=== PATIENT | male | born 1950 | race Caucasian/White ===

== ENCOUNTER 2022-06-04 07:37 | Emergency (ER) | payer MEDICARE, SELFPAY ==
--- NOTE | ~2022-06-04 | CT_ITS ---
EXAMINATION: CT abdomen pelvis wo con DATE: 06/04/2022 08:22 INDICATION: Right flank pain. TECHNIQUE: Computed tomography (CT) of the abdomen and pelvis was performed without intravenous contr ast. Automated exposure control and iterative reconstruction technique were employed. The dose-length product was 1691.04 mGy-cm. COMPARISON: None. FINDINGS: The visualized portions of lung bases demonstrate mild atelectasis. No pleural effusion. Th e heart size is normal. No pericardial effusion. There is diffuse hepatic steatosis. There are gallst ones in the gallbladder, which is distended. The spleen, pancreas, and adrenal glands are normal. The re are stones in the kidneys measuring up to 13 mm on the right. The prostate is mildly enlarged. The re are no dilated loops of bowel. The appendix is normal. There is a small sliding hiatal hernia. The re are no pathologically enlarged lymph nodes. There is no free intraperitoneal fluid. There is a lef t inguinal hernia containing fat. There is moderate lumbar spondylosis. IMPRESSION: 1. Gallstones. Gallbladder distention may be secondary to fasting or acute cholecystitis. Correlate w ith physical exam. 2. Bilateral nonobstructing kidney stones. 3. Small sliding hiatal hernia. 4. Left inguinal hernia containing fat. Reviewed, dictated and finalized at location A. T INTERPRETER IMPRESSION: 1. Gallstones. Gallbladder distention may be secondary to fasting or acute chol ecystitis. Correlate with physical exam. 2. Bilateral nonobstructing kidney stones. 3. Small sliding hiatal hernia. 4. Left inguinal hernia containing fat.
[2022-06-04 07:41] VITALS: PULSE 82; RESP 19; TEMP 36.3; O2SAT 96
[2022-06-04 08:01] VITALS: BP 143/94; O2SAT 96
--- NOTE | 2022-06-04 08:07 | ED.GENADULT ---
HPI - General Adult General Chief complaint: Back Pain/Injury Stated complaint: RIGHT flank pain Time Seen by Provider: 06/04/22 07:42 History of Present Illness HPI narrative: Patient is a 72-year-old male who presents ER with right-sided abdominal pain. Mid abdomen radiating into the month. Comes in waves. Worse with laying down flat. Associate with urinary frequency and urgency. No dysuria. No fevers or chills or sweats. Has history of kidney stones. This found no alleviating factors. No diarrhea/nausea/vomiting. No injury to the back. No back pain Related Data Allergies Allergy/AdvReac Type Severity Reaction Status Date / Time aspirin Allergy Numbness Verified 06/04/22 07:43 Review of Systems Constitutional: Constitutional: Denies chills, Denies fatigue and Denies fever(s) Cardiovascular: Cardiovascular: Denies chest pain, Denies rapid heart rate and Denies radiating jaw, neck or arm pain Respiratory: Respiratory: Denies cough and Denies dyspnea Gastrointestinal: Gastrointestinal: Reports abdominal pain, Denies diarrhea, Denies nausea and Denies vomiting Genitourinary: Genitourinary: Denies hematuria, Denies dysuria, Reports urinary frequency and Reports urinary incontinence (Able to sense but urinates before making it to the toilet.) Musculoskeletal: Musculoskeletal: Denies back pain Neurologic: Denies focal weakness and Denies numbness PMFSH Past Medical History Medical History (Updated 06/04/22 @ 10:33 by Lukas Crespo MD) Gout Kidney stones Surgical History Surgical History (Updated 06/04/22 @ 08:09 by Lukas Crespo MD) H/O right knee surgery Exam Narrative: GENERAL: Well-appearing, morbidly obese, and in no acute distress. HEAD: Normocephalic, atraumatic. CHEST: Clear to auscultation. No respiratory distress. HEART: Regular rate and rhythm. Normal peripheral pulses. ABDOMEN: Soft, nontender, nondistended. Back: No reproducible midline or paraspinal tenderness to the T/L-spine. EXTREMITIES: Normal range of motion. No edema. SKIN: Warm, dry, no rash. NEURO: Alert and oriented x3. PSYCH: Normal mood and affect. Course Vital Signs Vital signs: Vital Signs Temperature 97.3 F L 06/04/22 07:41 Pulse Rate 82 06/04/22 07:41 Respiratory Rate 19 06/04/22 07:41 Pulse Oximetry 96 06/04/22 07:41 Oxygen Delivery Room Air 06/04/22 07:41 Temperature 97.3 F L 06/04/22 07:41 Pulse Rate 82 06/04/22 07:41 Respiratory Rate 19 06/04/22 07:41 Pulse Oximetry 96 06/04/22 07:41 Oxygen Delivery Room Air 06/04/22 07:41 Medical Decision Making Vital Signs Vital Signs: Vital Signs Temperature 97.3 F L 06/04/22 07:41 Pulse Rate 82 06/04/22 07:41 Respiratory Rate 19 06/04/22 07:41 Pulse Oximetry 96 06/04/22 07:41 Oxygen Delivery Room Air 06/04/22 07:41 Temperature 97.3 F L 06/04/22 07:41 Pulse Rate 82 06/04/22 07:41 Respiratory Rate 19 06/04/22 07:41 Pulse Oximetry 96 06/04/22 07:41 Oxygen Delivery Room Air 06/04/22 07:41 Lab Data 06/04/22 09:00 06/04/22 09:00 Labs: Lab Results 06/04/22 06/04/22 06/04/22 Range/Units 09:00 09:00 09:35 WBC 7.8 (4.5-10.0) K/mm3 RBC 4.23 L (4.6-6.20) M/mm3 Hgb 12.8 L (14.0-18.0) g/dL Hct 39.5 L (42.0-52.0) % MCV 93.4 (80-100) fl MCH 30.3 (26-34) pg MCHC 32.4 (32-36) g/dl RDW 13.2 (11.5-14.5) % Plt Count 273 (150-375) k/mm3 MPV 9.2 (7.4-10.4) fl Immature Gran % (Auto) 0.3 (0-0.5) % Neut % (Auto) 66.8 (45.5-73.1) % Lymph % (Auto) 21.7 (18.3-44.2) % [place] % (Auto) 8.6 H (2.6-8.5) % Eos % (Auto) 2.1 (0-4.4) % Baso % (Auto) 0.5 (0.2-1.2) % Lymph # (Auto) 1.69 (0.9-3.2) K/mm3 [place] # (Auto) 0.7 H (0.1-0.6) K/mm3 Eos # (Auto) 0.2 (0-0.3) K/mm3 Baso # (Auto) 0.0 (0.0-0.1) K/mm3 Abs Immat Gran (auto) 0.02 (0.00-0.031) K/mm3 Absolute Neuts (auto)
[2022-06-04 09:07] LABS: Basophils Percent Auto 0.5 % (0.2-1.2); Eosinophils Absolute Auto 0.2 K/mm3 (0-0.3); Eosinophils Percent Auto 2.1 % (0-4.4); Hematocrit 39.5 % (42.0-52.0); Hemoglobin 12.8 g/dL (14.0-18.0); Immature Granulocyte Absolute 0.02 K/mm3 (0.00-0.031); Immature Granulocyte Percent A 0.3 % (0-0.5); Lymphocytes Absolute Auto 1.69 K/mm3 (0.9-3.2); Lymphocytes Percent Auto 21.7 % (18.3-44.2); Mean Corpuscular HGB Conc 32.4 g/dl (32-36); Mean Corpuscular Hemoglobin 30.3 pg (26-34); Mean Corpuscular Volume 93.4 fl (80-100); Mean Platelet Volume 9.2 fl (7.4-10.4); Monocytes Absolute Auto 0.7 K/mm3 (0.1-0.6); Monocytes Percent Auto 8.6 % (2.6-8.5); Neutrophils Absolute Auto 5.2 K/mm3 (1.3-6.7); Neutrophils Percent Auto 66.8 % (45.5-73.1); Platelet Count Result 273 k/mm3 (150-375); Red Blood Count 4.23 M/mm3 (4.6-6.20); Red Cell Distribution Width 13.2 % (11.5-14.5); White Blood Count 7.8 K/mm3 (4.5-10.0)
[2022-06-04] MEDS: MORPHINE SULFATE (*CRX) 4 MG/ML INJ IV PUSH (09:09)
[2022-06-04 09:20] LABS: Alanine Aminotransferase 18 U/L (6-50); Albumin Level 4.1 g/dL (3.5-5.1); Alkaline Phosphatase 90 U/L (38-126); Anion Gap 7 mmol/L (8-16); Aspartate Amino Transferase 21 U/L (17-59); Bilirubin,Total 0.9 mg/dL (0.2-1.3); Blood Urea Nitrogen 20 mg/dL (9-20); Calcium 9.2 mg/dL (8.4-10.2); Carbon Dioxide 26 mmol/L (22-30); Chloride 108 mmol/L (98-107); Estimated CRCL calculation 95 ml/min; Estimated Glomerular Filt Rate > 60; Glucose 130 mg/dL (65-110); Lipase 41 U/L (23-300); Sodium 141 mmol/L (137-145)
[2022-06-04 09:30] VITALS: O2SAT 97
[2022-06-04 09:42] LABS: Appearance Urine Clear (Clear); Bilirubin Urine Negative (Negative); Blood Urine Trace-intact (Negative); Color Urine Yellow (Yellow); Glucose Urine UA Negative (Negative); Ketones Urine Negative (Negative); Leukocyte Esterase Ur Trace LEU/UL (Negative); Nitrate Urine Negative (Negative); Protein Urine 1+ mg/dL (Negative)
[2022-06-04 09:49] LABS: Bacteria Urine Trace /hpf; Mucus Urine Rare /lpf; Squamous Epithelial Cell Urine Occasional /hpf (Few)
[2022-06-04 09:52] LABS: Add Urine Microscopic? YES
== END 2022-06-04 10:50 | disposition home or self-care (01) ==
PROVIDERS: Emergency Provider Emergency Medicine
DX: K80.20 Calculus of gallbladder without cholecystitis without obstruction (principal); Z87.442 Personal history of urinary calculi
CPT/HCPCS: 36415; 74176; 80053; 81001; 83690; 85025; 96374; 99284; J2270

== ENCOUNTER 2022-06-19 09:45 | Outpatient (CLI) | payer MEDICARE, SELFPAY ==
[2022-06-19 10:39] LABS: Hematocrit 39.8 % (42.0-52.0); Mean Corpuscular HGB Conc 32.7 g/dl (32-36); Mean Corpuscular Volume 91.7 fl (80-100); Mean Platelet Volume 9.4 fl (7.4-10.4); Platelet Count Result 285 k/mm3 (150-375); Red Blood Count 4.34 M/mm3 (4.6-6.20); Red Cell Distribution Width 13.1 % (11.5-14.5)
[2022-06-19 10:51] LABS: Alanine Aminotransferase 18 U/L (6-50); Albumin Level 4.2 g/dL (3.5-5.1); Alkaline Phosphatase 94 U/L (38-126); Anion Gap 6 mmol/L (8-16); Aspartate Amino Transferase 19 U/L (17-59); Bilirubin,Total 0.8 mg/dL (0.2-1.3); Blood Urea Nitrogen 23 mg/dL (9-20); Calcium 9.4 mg/dL (8.4-10.2); Carbon Dioxide 28 mmol/L (22-30); Chloride 110 mmol/L (98-107); Cholesterol 224 mg/dL (0-200); Estimated Glomerular Filt Rate 60; Glucose 124 mg/dL (65-110); HDL Direct 40 mg/dL; Potassium 4.2 mmol/L (3.4-5.0); Sodium 144 mmol/L (137-145); Triglycerides 90 mg/dL (<150); Uric Acid 6.5 mg/dL (3.5-8.5)
[2022-06-19 11:03] LABS: LDL Cholesterol Direct 134 mg/dL
[2022-06-19 11:15] LABS: Hemoglobin A1C 6.6 % (<5.7)
[2022-06-19 11:22] LABS: Prostate Specific Antigen 1.6 ng/mL (< OR = 4.0)
== END 2022-06-19 09:46 | disposition home or self-care (01) ==
PROVIDERS: PCP Internal Medicine; Visit Provider Internal Medicine
DX: R73.9 Hyperglycemia, unspecified (principal); E66.01 Morbid (severe) obesity due to excess calories; I10 Essential (primary) hypertension; N40.0 Benign prostatic hyperplasia without lower urinary tract symptoms; M10.9 Gout, unspecified; Z12.5 Encounter for screening for malignant neoplasm of prostate
CPT/HCPCS: 36415; 80053; 80061; 83036; 84153; 84443; 84550; 85027; G0103

== ENCOUNTER 2022-11-28 15:19 | Emergency (ER) | payer MEDICARE, SELFPAY ==
[2022-11-28 15:49] VITALS: BP 170/97; PULSE 80; RESP 20; TEMP 36.4; O2SAT 98
--- NOTE | 2022-11-28 16:02 | ED.BACK ---
HPI - Back Pain/Injury General Chief Complaint: Back Pain/Injury Stated Complaint: sent by PCP for tailbone xrays Time Seen by Provider: 11/28/22 16:03 Source: patient Mode of arrival: ambulatory Limitations: no limitations History of Present Illness HPI Narrative: Edwin is a 72-year-old male patient presenting to the clinic today with complaints of tailbone pain x1 day. He reports he was sitting on a stool yesterday and irritated his tailbone. He denies falling or any injury. Denies any wounds or drainage coming from the tailbone area. Related Data Home Medications Medication Instructions Recorded Confirmed apixaban 5 mg tablet 5 mg PO BID 04/26/22 11/28/22 colchicine (gout) 0.6 mg capsule 0.6 mg PO DAILY 04/26/22 11/28/22 Allergies Allergy/AdvReac Type Severity Reaction Status Date / Time aspirin Allergy Other Verified 11/28/22 14:48 Review of Systems Review of Systems: Pertinent positives per HPI. Patient denies any fever, chills, rash, headache, visual changes, dizziness, cough, runny nose, sore throat, shortness of breath, chest pain, palpitations, nausea, vomiting, diarrhea, constipation, abdominal pain, or any urinary issues. [facility] Past Medical History Medical History Diabetes Erectile dysfunction Gout Gout HTN (hypertension) Kidney stones Kidney stones Morbid obesity JESSICA (obstructive sleep apnea) Surgical History Surgical History H/O knee surgery H/O right knee surgery Family History Family History Father Cancer Lung cancer Mother Hypertension Alzheimer's dementia Sibling Diabetes mellitus Hypertension Daughter Breast cancer Hypertension Social History Social History Smoking status: Never smoker Second hand tobacco smoke exposure: No Alcohol intake: never Substance use: never Lack of Transportation: No Lack of Food: Never True Current Housing: I Have Housing Concerned About Future Housing: No Difficulty Paying Gas/Electric Bills: No Difficulty Paying for Meds: No Currently Unemployed: YES Education: Associate Degree Difficulty w/ Childcare or Family Care: No Comments At the time of my signature, I reviewed and agree with the nursing past medical, surgical, social, and family history. There is no relevant family history pertinent to the patient complaint. Exam Narrative: General: Well-developed, morbidly obese, in no apparent distress Head: Normocephalic, atraumatic. Cardio: Regular rate and rhythm, s1 and s2 normal, no murmur appreciated. Resp: Clear to auscultation bilaterally, no rhonchi, rales, wheezing or rubs. Musculoskeletal: No deformity, no redness, swelling, or bruising noted,tender to palpation over the coccyx, grossly normal range of motion, muscle strength strong and equal, peripheral pulse strong, no edema, no cyanosis, normal gait and station Course Course Emergency Course: Portions of this record may have been created with voice recognition software. Vital Signs Vital signs: Vital Signs Temperature 36.4 C 11/28/22 15:49 Pulse Rate 80 11/28/22 15:49 Respiratory Rate 20 11/28/22 15:49 Blood Pressure 170/97 H 11/28/22 15:49 Pulse Oximetry 98 11/28/22 15:49 Oxygen Delivery Room Air 11/28/22 15:49 Temperature 36.4 C 11/28/22 15:49 Pulse Rate 80 11/28/22 15:49 Respiratory Rate 20 11/28/22 15:49 Blood Pressure 170/97 H 11/28/22 15:49 Pulse Oximetry 98 11/28/22 15:49 Oxygen Delivery Room Air 11/28/22 15:49 Vital signs reviewed MDM - Back Pain/Injury MDM Narrative Medical decision making narrative: At the time of visit patient is sitting In the exam room on the chair. He is reporting pain to his coccyx area. There is
== END 2022-11-28 16:54 | disposition home or self-care (01) ==
PROVIDERS: Emergency Provider Nurse Practitioner Family; PCP Family Medicine
DX: M53.3 Sacrococcygeal disorders, not elsewhere classified (principal); E11.9 Type 2 diabetes mellitus without complications; I10 Essential (primary) hypertension; G47.33 Obstructive sleep apnea (adult) (pediatric); M10.9 Gout, unspecified; E66.01 Morbid (severe) obesity due to excess calories; Z68.43 Body mass index [BMI] 50.0-59.9, adult; Z87.442 Personal history of urinary calculi; Z79.85 Long-term (current) use of injectable non-insulin antidiabetic drugs; Z79.01 Long term (current) use of anticoagulants
CPT/HCPCS: 99283

== ENCOUNTER 2023-01-25 11:25 | Outpatient (CLI) | payer MEDICARE, SELFPAY ==
[2023-01-25 12:06] LABS: Basophils Percent Auto 0.4 % (0.2-1.2); Eosinophils Absolute Auto 0.2 K/mm3 (0-0.3); Eosinophils Percent Auto 3.1 % (0-4.4); Hematocrit 41.3 % (42.0-52.0); Hemoglobin 13.2 g/dL (14.0-18.0); Immature Granulocyte Absolute 0.01 K/mm3 (0.00-0.031); Immature Granulocyte Percent A 0.1 % (0-0.5); Lymphocytes Absolute Auto 2.61 K/mm3 (0.9-3.2); Lymphocytes Percent Auto 39.1 % (18.3-44.2); Mean Corpuscular Hemoglobin 29.9 pg (26-34); Mean Corpuscular Volume 93.4 fl (80-100); Mean Platelet Volume 9.7 fl (7.4-10.4); Monocytes Absolute Auto 0.6 K/mm3 (0.1-0.6); Monocytes Percent Auto 9.1 % (2.6-8.5); Neutrophils Absolute Auto 3.2 K/mm3 (1.3-6.7); Neutrophils Percent Auto 48.2 % (45.5-73.1); Platelet Count Result 235 k/mm3 (150-375); Red Blood Count 4.42 M/mm3 (4.6-6.20); Red Cell Distribution Width 13.7 % (11.5-14.5); White Blood Count 6.7 K/mm3 (4.5-10.0)
[2023-01-25 12:12] LABS: Hemoglobin A1C 5.7 % (<5.7)
[2023-01-25 12:17] LABS: Alanine Aminotransferase 18 U/L (6-50); Albumin Level 4.5 g/dL (3.5-5.1); Alkaline Phosphatase 82 U/L (38-126); Anion Gap 7 mmol/L (8-16); Aspartate Amino Transferase 24 U/L (17-59); Blood Urea Nitrogen 21 mg/dL (9-20); Calcium 9.6 mg/dL (8.4-10.2); Carbon Dioxide 26 mmol/L (22-30); Chloride 109 mmol/L (98-107); Cholesterol 147 mg/dL (0-200); Estimated Glomerular Filt Rate 54; Glucose 105 mg/dL (65-110); HDL Direct 42 mg/dL; Potassium 3.8 mmol/L (3.4-5.0); Sodium 142 mmol/L (137-145); Triglycerides 86 mg/dL (<150); Uric Acid 8.1 mg/dL (3.5-8.5)
[2023-01-25 12:29] LABS: LDL Cholesterol Direct 78 mg/dL
[2023-01-25 12:31] LABS: MALB Creatinine Ratio 30.9 mg/g (0-30); Microalbumin Urine Random 62.8 mg/L (0-16.7)
== END 2023-01-25 11:26 | disposition home or self-care (01) ==
PROVIDERS: PCP Family Medicine; Visit Provider Nurse Practitioner Family
DX: M10.9 Gout, unspecified (principal); E11.69 Type 2 diabetes mellitus with other specified complication; E66.9 Obesity, unspecified; E78.5 Hyperlipidemia, unspecified; I10 Essential (primary) hypertension; D64.9 Anemia, unspecified
CPT/HCPCS: 36415; 80053; 80061; 82043; 83036; 84550; 85025

== ENCOUNTER 2023-04-20 09:31 | Emergency (ER) | payer MEDICARE, SELFPAY ==
--- NOTE | ~2023-04-20 | CT_ITS ---
EXAMINATION: CT abdomen pelvis wo con DATE: 04/20/2023 11:12 INDICATION: Right flank pain TECHNIQUE: Computed tomography (CT) of the abdomen and pelvis was performed without intravenous contr ast. Automated exposure control and iterative reconstruction technique were employed. The dose-length product was 1611.21 mGy-cm. COMPARISON: None FINDINGS: Unchanged 3 mm groundglass nodule at the posterolateral right lower lobe. Mild bibasilar dependent at electasis. Heart size is normal. No pericardial or pleural effusion. Aortic valve calcification. Smal l sliding-type hiatal hernia. Again seen is a dependent calcified gallstone in the otherwise normal-a ppearing gallbladder with no evident wall thickening or pericholecystic comparison to suggest acute c holecystitis. Liver, spleen, pancreas and bilateral adrenal glands are normal. 1.3 cm nonobstructing stone at the lower pole of the right kidney and 4 mm nonobstructing stone at a lower pole calyx of th e left kidney. No ureteral stones or hydronephrosis. Bladder is normal. Small fat-containing left ing uinal hernia. Bowels including the appendix are normal. Small fat-containing umbilical hernia. No tae e intraperitoneal gas or fluid. No pathologically enlarged abdominal or pelvic lymphadenopathy. Mild to moderate thoracolumbar spondylosis with bridging osteophytes at multiple levels consistent with di ffuse idiopathic skeletal hyperostosis (DISH). There is also multilevel moderate to severe facet oste oarthritis throughout the lumbar and lower thoracic spine. Moderate bilateral hip osteoarthritis. IMPRESSION: 1. Cholelithiasis. 2. Bilateral nonobstructing nephrolithiasis. 3. Small sliding-type hiatal hernia. 4. Small fat-containing umbilical and left inguinal hernias. Reviewed, dictated and finalized at location A. 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
[2023-04-20 09:38] VITALS: BP 141/68; PULSE 78; RESP 18; TEMP 36.4; O2SAT 99
[2023-04-20 11:09] LABS: Basophils Absolute Auto 0.1 K/mm3 (0.0-0.1); Basophils Percent Auto 0.8 % (0.2-1.2); Eosinophils Absolute Auto 0.2 K/mm3 (0-0.3); Eosinophils Percent Auto 2.6 % (0-4.4); Hemoglobin 13.2 g/dL (14.0-18.0); Immature Granulocyte Absolute 0.02 K/mm3 (0.00-0.031); Immature Granulocyte Percent A 0.3 % (0-0.5); Lymphocytes Absolute Auto 2.05 K/mm3 (0.9-3.2); Lymphocytes Percent Auto 33.6 % (18.3-44.2); Mean Corpuscular HGB Conc 31.4 g/dl (32-36); Mean Corpuscular Volume 95.5 fl (80-100); Monocytes Absolute Auto 0.5 K/mm3 (0.1-0.6); Monocytes Percent Auto 8.5 % (2.6-8.5); Neutrophils Absolute Auto 3.3 K/mm3 (1.3-6.7); Neutrophils Percent Auto 54.2 % (45.5-73.1); Platelet Count Result 231 k/mm3 (150-375); Red Cell Distribution Width 13.5 % (11.5-14.5); White Blood Count 6.1 K/mm3 (4.5-10.0)
--- NOTE | 2023-04-20 11:17 | ED.GENADULT ---
HPI - General Adult General Chief complaint: Urogenital-Male Stated complaint: Pain right side and back Time Seen by Provider: 04/20/23 10:57 Source: patient Mode of arrival: ambulatory Limitations: no limitations History of Present Illness HPI narrative: This is a 73-year-old male who presents to the ED with chief complaint of right flank pain x2 days and worse today. Reports it has been intermittent in nature until today becoming more constant and more severe. Reports he has history of kidney stones and this feels similar. Denies radiation of pain. Denies fevers, chills, nausea, vomiting, urinary symptoms, troubles with bowel movements. Denies any injuries or pain in the lower back. Related Data Home Medications Medication Instructions Recorded Confirmed apixaban 5 mg tablet 5 mg PO BID 04/26/22 01/25/23 Allergies Allergy/AdvReac Type Severity Reaction Status Date / Time aspirin Allergy Other Verified 01/25/23 09:36 Review of Systems Review of Systems: All systems as dictated in [facility] Past Medical History Medical History Diabetes Erectile dysfunction Gout Gout HTN (hypertension) Kidney stones Kidney stones Morbid obesity JESSICA (obstructive sleep apnea) Surgical History Surgical History H/O knee surgery H/O right knee surgery Family History Family History Father Cancer Lung cancer Mother Hypertension Alzheimer's dementia Sibling Diabetes mellitus Hypertension Daughter Breast cancer Hypertension Social History Social History Smoking status: Never smoker Second hand tobacco smoke exposure: No Alcohol intake: never Substance use: never Lack of Transportation: No Lack of Food: Never True Current Housing: I Have Housing Concerned About Future Housing: No Difficulty Paying Gas/Electric Bills: No Difficulty Paying for Meds: No Currently Unemployed: YES Education: Associate Degree Difficulty w/ Childcare or Family Care: No Exam Narrative: GENERAL: Well-appearing, well-nourished, and in no acute distress. HEAD: Normocephalic, atraumatic. EYES: PERRLA and EOMI. ENT: Nares clear, no rhinorrhea or epistaxis. Mucous membranes moist. Oropharynx without tonsillar hypertrophy exudate or other lesions. NECK: Supple. No adenopathy or masses. CHEST: No respiratory distress. Clear to auscultation. No wheezes rales or rhonchi HEART: Regular rate and rhythm. No murmur heard. Normal peripheral pulses. ABDOMEN: obese abdomen. Mild right flank tenderness. Negative left flank tenderness. Soft, otherwise nontender, nondistended, normal active bowel sounds. MSK: Normal range of motion. No edema. SKIN: Warm, dry, no rash. NEURO: Alert and oriented x3. No focal deficits. PSYCH: Normal mood and affect. Course Vital Signs Vital signs: Vital Signs Temperature 97.6 F 04/20/23 09:38 Pulse Rate 78 04/20/23 09:38 Respiratory Rate 18 04/20/23 09:38 Blood Pressure 141/68 H 04/20/23 09:38 Pulse Oximetry 99 04/20/23 09:38 Oxygen Delivery Room Air 04/20/23 09:38 Temperature 97.6 F 04/20/23 09:38 Pulse Rate 70 04/20/23 13:14 Respiratory Rate 18 04/20/23 13:14 Blood Pressure 140/65 04/20/23 13:14 Pulse Oximetry 100 04/20/23 13:14 Oxygen Delivery Room Air 04/20/23 09:38 Medical Decision Making MDM Narrative Medical decision making narrative: This is a 73-year-old male who presents to the ED with chief complaint of right lower back and right flank pain for the past several days. Vitals are normal. Afebrile. Exam does reveal right flank tenderness. lab work is largely unrevealing. No leukocytosis. Very slightly elevated BUN at 22. Urinalysis does show evidence of possible
[2023-04-20 11:22] LABS: Alanine Aminotransferase 16 U/L (6-50); Albumin Level 4.1 g/dL (3.5-5.1); Alkaline Phosphatase 85 U/L (38-126); Anion Gap 7 mmol/L (8-16); Aspartate Amino Transferase 25 U/L (17-59); Blood Urea Nitrogen 22 mg/dL (9-20); Calcium 9.6 mg/dL (8.4-10.2); Carbon Dioxide 28 mmol/L (22-30); Chloride 111 mmol/L (98-107); Estimated CRCL calculation 89 ml/min; Estimated Glomerular Filt Rate > 60; Glucose 90 mg/dL (65-110); Potassium 4.1 mmol/L (3.4-5.0); Sodium 146 mmol/L (137-145)
[2023-04-20 12:13] LABS: Appearance Urine Clear (Clear); Bacteria Urine None Seen /hpf; Bilirubin Urine Negative (Negative); Blood Urine Negative (Negative); Color Urine Yellow (Yellow); Glucose Urine UA Negative (Negative); Ketones Urine Negative (Negative); Leukocyte Esterase Ur Trace LEU/UL (Negative); Nitrate Urine Negative (Negative); Non Pathogenic Casts 0-2; Protein Urine Negative (Negative); RBC Urine 0-2 /hpf (0-2); Specific Grav Ur 1.019 (1.001-1.035); Squamous Epithelial Cell Urine None seen /hpf (Few)
[2023-04-20 12:20] LABS: Add Urine Microscopic? YES
[2023-04-20] MEDS: ONDANSETRON INJ 4 MG/2 ML VIAL IV PUSH (12:49)
[2023-04-20] MEDS: MORPHINE SULFATE (*CRX) 4 MG/ML INJ IV PUSH (12:49)
[2023-04-20 13:14] VITALS: BP 140/65; PULSE 70; RESP 18; O2SAT 100
== END 2023-04-20 15:24 | disposition home or self-care (01) ==
PROVIDERS: Emergency Provider Physician Assistant; PCP Nurse Practitioner Family
DX: N39.0 Urinary tract infection, site not specified (principal); I10 Essential (primary) hypertension; E11.9 Type 2 diabetes mellitus without complications; E66.01 Morbid (severe) obesity due to excess calories; Z68.43 Body mass index [BMI] 50.0-59.9, adult; G47.33 Obstructive sleep apnea (adult) (pediatric); M10.9 Gout, unspecified; Z87.442 Personal history of urinary calculi; Z79.85 Long-term (current) use of injectable non-insulin antidiabetic drugs; K44.9 Diaphragmatic hernia without obstruction or gangrene; N20.0 Calculus of kidney; K80.20 Calculus of gallbladder without cholecystitis without obstruction; K42.9 Umbilical hernia without obstruction or gangrene; K40.90 Unilateral inguinal hernia, without obstruction or gangrene, not specified as recurrent
CPT/HCPCS: 36415; 74176; 80053; 81001; 85025; 87086; 87088; 96374; 96375; 99284; 99285; J2270; J2405

== ENCOUNTER 2023-10-07 06:54 | Emergency (ER) | payer MEDICARE, SELFPAY ==
--- NOTE | ~2023-10-07 | XR_ITS ---
EXAMINATION: XR lumbar spine 2-3V DATE: 10/07/2023 08:10 INDICATION: Low back pain. Sciatica. TECHNIQUE: 3 views of lumbar spine on 4 radiographs were obtained. COMPARISON: CT abdomen and pelvis 04/20/2023 FINDINGS: There is 5 degrees levocurvature of lumbar spine. Vertebral body heights are normal. Interv ertebral disc heights are normal. There are endplate osteophytes at most levels. There is multilevel severe facet joint osteoarthritis. There is a gallstone in the gallbladder. There is a 3 mm stone in left kidney. IMPRESSION: 1. Mild lumbar spondylosis. Reviewed, dictated and finalized at location E. IMPRESSION: 1. Mild lumbar spondylosis.
[2023-10-07] MEDS: ACETAMINOPHEN 325 MG TABLET 650 MG PO (07:47)
[2023-10-07] MEDS: CYCLOBENZAPRINE HCL 10 MG TABLET PO (07:47)
--- NOTE | 2023-10-07 08:05 | ED.EXTPRO ---
HPI - Extremity Problem General Chief complaint: Extremity Problem,Nontraumatic Stated complaint: R leg pain Time Seen by Provider: 10/07/23 06:57 History of Present Illness HPI Narrative: Patient is a 73-year-old male who presents ER with right-sided back and leg pain. Began yesterday morning. No known injury. No numbness or tingling to legs or groin. Worse with physical movement. No improvement with Tylenol. Patient is on Eliquis and is unable to take any anti-inflammatory medication due to previous GI bleed. He also has an aspirin allergy. No fevers or chills or sweats. Related Data Home Medications Medication Instructions Recorded Confirmed apixaban 5 mg tablet 5 mg PO BID 04/26/22 01/25/23 Allergies Allergy/AdvReac Type Severity Reaction Status Date / Time aspirin Allergy Other Verified 10/07/23 08:51 Review of Systems Constitutional: Constitutional: Reports no additional constitutional complaints Genitourinary: Genitourinary: Reports no additional male genitourinary complaints Musculoskeletal: Musculoskeletal: Reports back pain, Denies arthralgias, Denies joint swelling and Denies muscle cramps Neurologic: Reports system reviewed and no additional complaints, except as documented PMFSH Past Medical History Medical History Diabetes Erectile dysfunction Gout Gout HTN (hypertension) Kidney stones Kidney stones Morbid obesity JESSICA (obstructive sleep apnea) Surgical History Surgical History H/O knee surgery H/O right knee surgery Family History Family History Father Cancer Lung cancer Mother Hypertension Alzheimer's dementia Sibling Diabetes mellitus Hypertension Daughter Breast cancer Hypertension Social History Social History Smoking status: Never smoker Second hand tobacco smoke exposure: No Alcohol intake: never Substance use: never Lack of Transportation: No Lack of Food: Never True Current Housing: I Have Housing Concerned About Future Housing: No Difficulty Paying Gas/Electric Bills: No Difficulty Paying for Meds: No Currently Unemployed: YES Education: Associate Degree Difficulty w/ Childcare or Family Care: No Exam Narrative: GENERAL: Well-appearing, Morbidly obese, and in no acute distress. HEAD: Normocephalic, atraumatic. ENT: Mucous membranes moist. BACK: No midline tenderness of t/l-spine. Mild right SI tenderness. EXTREMITIES: Normal range of motion. No edema. SKIN: Warm, dry, no rash. NEURO: Alert and oriented x3. PSYCH: Normal mood and affect. Course Course Emergency Course: Patient feeling improved with Tylenol and cyclobenzaprine. Informed of imaging results. Discharge home with supportive care. Recommend follow-up with PCP. May need a steroid injection at a later time. Vital Signs Vital signs: Vital Signs Temperature 97.9 F 10/07/23 08:28 Pulse Rate 60 10/07/23 08:28 Respiratory Rate 20 10/07/23 08:28 Blood Pressure 133/106 H 10/07/23 08:28 Pulse Oximetry 96 10/07/23 08:28 Oxygen Delivery Room Air 10/07/23 08:28 Temperature 97.9 F 10/07/23 08:28 Pulse Rate 60 10/07/23 08:28 Respiratory Rate 20 10/07/23 08:28 Blood Pressure 133/106 H 10/07/23 08:28 Pulse Oximetry 96 10/07/23 08:28 Oxygen Delivery Room Air 10/07/23 08:28 MDM - Extremity (Nontraumatic) Imaging Data Radiologist's impression: ITS Impressions Lumbar Spine X-Ray 10/07/23 08:12 IMPRESSION: 1. Mild lumbar spondylosis. Discharge Plan Discharge Clinical Impression: Sciatica Patient Disposition: Home, Self-Care Condition: Stable Instructions: Sciatica (ED) Additional Instructions: Please return to the emergency department if you de
[2023-10-07 08:28] VITALS: BP 133/106; PULSE 60; RESP 20; TEMP 36.6; O2SAT 96
== END 2023-10-07 09:18 | disposition home or self-care (01) ==
PROVIDERS: Emergency Provider Emergency Medicine
DX: M54.41 Lumbago with sciatica, right side (principal); E11.9 Type 2 diabetes mellitus without complications; I10 Essential (primary) hypertension; G47.33 Obstructive sleep apnea (adult) (pediatric); E66.01 Morbid (severe) obesity due to excess calories; Z68.43 Body mass index [BMI] 50.0-59.9, adult; M10.9 Gout, unspecified; Z87.442 Personal history of urinary calculi; M47.816 Spondylosis without myelopathy or radiculopathy, lumbar region; Z79.01 Long term (current) use of anticoagulants; Z79.899 Other long term (current) drug therapy; Z79.85 Long-term (current) use of injectable non-insulin antidiabetic drugs
CPT/HCPCS: 72100; 99283; A9270

== ENCOUNTER 2024-05-19 05:36 | Emergency (ER) | payer MEDICARE, SELFPAY ==
[2024-05-19 05:37] VITALS: BP 186/92; PULSE 93; RESP 18; TEMP 36.6; O2SAT 97
--- OUTSIDE RECORDS SUMMARY | 2024-05-19 05:38 | XMS_ITS | Encounter Summary ---
Author Name [facility] [place] [facility] [place] [facility] [place] Address [address] [place] [address] Care Team Providers Care Physician/Allergy/Immunology Name Role Phone MARIA DEL ROSARIO ESTES Primary Care Provider Unavailab le Insurance Providers: All historical and current Section Date Range: From patient's date of to the date document was created. This section includes the names of all active insurance providers for the patient. Insurance Provider Type of Coverage Plan Name Start of Policy Coverage End of Policy Coverage Group Number Member ID Insurance Provider's Telephone Number Policy Carrasquillo's Name Patient's Relationship to Policy Carrasquillo AETNA [facility] (WNR) MEDICARE ADVANTAGE [facility] (WN) Apr 02, 2019 [id number] [phone] RODNEY MIXEdwar PATIENT MEDICARE (WNR) MEDICARE (M) PART A Feb 01, 2016 PART A [id number] [phone] MARIA DEL ROSARIORODNEY JOSEEdwar PATIENT MEDICARE (WNR) MEDICARE (M) PART B Feb 01, 2016 PART B [id number] MARIA DEL ROSARIORODNEY JOSEEdwar PATIENT MEDICARE (WNR) MEDICARE (M) PART B Feb 01, 2016 PART B [id number] [phone] MARIA DEL ROSARIORODNEY JOSEEdwar PATIENT MEDICARE (WNR) MEDICARE (M) PART A Feb 01, 2016 PART A [id number] MARIA DEL ROSARIORODNEY JOSEEdwar PATIENT [facility] (WNR) MEDICARE ADVANTAGE [facility](W NR) Jan 01, 2024 [id number] MARIA DEL ROSARIORODNEY JOSEEdwar PATIENT Selected Encounter This section includes the information on record at [place] for the Encounter. Date/Time Encounter Type Encounter Description Reason Provider Source Nov 08, 2023 02:26 PM Outpatient Encounter ADMIN PAT ACTIVTIES (MASNONCT) MARIA DEL ROSARIO ESTES Giulia Encounter Template Text not used by [place] Plan of Treatment: Future Appointments (+ 6 months) and Future Tests (+/- 45 days) The Plan of Treatment section includes future care activities for the patient from all [place] treatmentfacilities. This section includes future appointments and future orders which are active, pending or scheduled. Future Appointments This section includes appointments that were scheduled to occur 6 months from the date of the Encounter, up to a maximum of 20 appointments. The data comes from all [place] treatment facilities. Appointment Date/Time Appointment Type Appointme nt Facility Name Nov 16, 2023 01:00 PM AMBULATORY [facility] MED[facility] Nov 22, 2023 01:00 PM AMBULATORY - MEDICINE [facility] Nov 23, 2023 09:00 AM [facility]ORY - [facility]INE [facility] Dec 11, 2023 09:00 AM AM[facility]ULATORY - NONE [facility] Dec 24, 2023 03:00 PM [facility]ULATORY - [facility]INE [facility] Jan 07, 2024 01:30 PM AM[facility]ULATORY - SURGERY [facility] Jan 24, 2024 01:30 PM AMBULATORY - MEDICINE [facility] Feb 18, 2024 09:30 AM AM[facility]ULATORY [facility]ERY [facility] Feb 20, 2024 11:30 AM AM[facility]ULATORY - NONE [facility] Mar 06, 2024 11:00 AM AM[facility]ULATORY - NONE [facility] [place] [facility] Mar 14, 2024 11:00 AM AMBULATORY - REHAB MEDICIN [facility] Apr 03, 2024 11:30 AM AMBULATORY - [facility] Apr 05, 2024 09:35 AM [facility]ATORY - [facility]INE [facility] Apr 15, 2024 12:00 PM AMBULATORY - MEDICINE [facility] Apr 16, 2024 11:00 AM AMBULATORY - NONE [email or web address] Luciana [facility] Apr 16, 2024 01:30 PM AMBULATORY - NONE [facility] Active, Pending, and Scheduled Orders This section includes a listing of several types of active, pending, and scheduled orders, including clinic medications orders, diagnostic test orders, procedure orders and consult orders; where the start date of the order is 45 days before the date of the Encounter or 45 days after the date of theEncounter. The data comes from all [facility]. Test Date/Time Test Type Test Details Facility Name Nov 07, 2023 12:00 AM Laboratory - Chemi stry Order MICRAL/CREAT PROFILE (STL) URINE [facility] Nov 07, 2023 12:00 AM Laboratory - Chemi stry Order VITAMIN D, 25-HYDROXY GOLD/RED SST SERUM [facility] Nov 07, 2023 12:00 AM Laboratory - Chemi stry Order URINALYSIS W/ CX REFLEX (STL-PB) URINE - CLEAN CATCH [facility] Nov 07, 2023 12:00 AM Laboratory - Chemi stry Order OCCULT BLOOD FIT X1 SCREEN STOOL FECES [facility] Social History: Smoking Status (Most current) and Tobacco Use (All prior to encounter date) This section includes the most current, and the historical, smoking and tobacco- related health factors from the [place] facility where the Encounter took place. Current Smoking Status This section includes the most current smoking, or tobacco-related health factor, from the [place] facility where the Encounter took place. Date/Time Current Smoking Status Comment Facil ity Jun 06, 2022 10:00 AM VA-TOBACCO NEVER USED [facility] Tobacco Use History This section includes a history of the smoking, or tobacco-related health factors, that were collected on or before the date of the Encounter. The data comes from the [place] facility where the Encounter took place. Date/Time Smoking Status/Tobacco Use Comment F acility Mar 15, 2020 02:00 PM VA-TOBACCO FORMER USER [facility] Mar 15, 2020 02:00 PM VA-TOBACCO QUIT 15 YRS OR MORE [facility] Jan 29, 2018 10:49 AM VA-TOBACCO NEVER USED [facility] Oct 12, 2016 09:53 AM LIFETIME NON-USER OF TOBACCO [facility] August 02, 2015 10:40 AM LIFETIME NON-USER OF TOBACCO [facility] Oct 22, 2014 09:50 AM LIFETIME NON-USER OF TOBACCO [facility] Jan 08, 2009 08:24 AM QUIT TOBACCO >7 YEARS AGO [facility] Encounter Notes: All associated encounter notes This section contains the clinical notes associated to the Encounter. Date/Time Encounter Note(s) Provider Source Nov 08, 2023 02:26 PM CARE COORDINATION HOME TELEHEALTH NOTE: LOCAL TITLE: HT NOTE STANDARD TITLE: CARE COORDINATION HOME TELEHEALTH NOTE DATE OF NOTE: NOV 08, 2023@14:26 ENTRY DATE: NOV 08, 2023@14:26:28 AUTHOR: JUAN MANUEL COCHRAN EXP COSIGNER: URGENCY: STATUS: COMPLETED Home Telehealth is a specialized Case Management program which uses technology to provide education, improve self-care management, and for professional daily monitoring of symptoms and problems all from the Veterans homes. Home Telehealth Night Club Manager-reviewed: [employer] [place] identified as potential patient who may benefit from Remote Patient Monitoring(RPM)- Home Telehealth (HT) services. Patient enrolled in Remote Patient Monitoring (RMP)-Home Telehealth(HT) program. No meets criteria for enrollment in RPM-HT program? Yes Referral placed to home telehealth pending provider approval/signature /buzz/ JUAN MANUEL FERNANDEZN RN REGISTERED NURSE Signed: 11/08/2023 14:29 JUAN MANUEL COCHRAN [facility]
--- OUTSIDE RECORDS SUMMARY | 2024-05-19 05:38 | XMS_ITS | Encounter Summary ---
Author Name [facility] [place] [facility] [place] [facility] [place] Address [address] [place] [address] Care Team Providers Care Utility Hand Name Role Phone MARIA DEL ROSARIO ESTES [...] Name Patient's Relationship to Policy Carrasquillo AETNA [facility] (WNR) MEDICARE ADVANTAGE [facility] ([facility]) Apr 02, 2019 [id number] RODNEY MIXEdwar PATIENT MEDICARE (WNR) MEDICARE (M) PART A Feb 01, 2016 PART A [id number] [phone] MARIA DEL ROSARIORODNEY JOSEEdwar PATIENT MEDICARE (WNR) MEDICARE (M) PART B Feb 01, 2016 PART B [id number] MARIA DEL ROSARIORODNEY [place] PATIENT MEDICARE (WNR) MEDICARE (M) PART A Feb 01, 2016 PART A [id number] [phone] MARIA DEL ROSARIORODNEY JOSEEdwar PATIENT MEDICARE (WNR) MEDICARE (M) PART B Feb 01, 2016 PART B [id number] RODNEY MIX PATIENT [facility] MCR (WNR) MEDICARE ADVANTAGE MCR(W NR) Jan 01, 2024 [id number] RODNEY MIX PATIENT Selected Encounter This section includes the information on record at [place] for the Encounter. Date/Time Encounter Type Encounter Description Reason Pro vider Source Apr 16, 2024 11:00 AM Outpatient Encounter PRIMARY CARE/MEDICINE [facility] Encounter Template Text not used by [place] Plan of Treatment: Future Appointments (+ 6 months) and Future Tests (+/- 45 days) The Plan of Treatment section includes future care activities for the patient from all [place] treatment[place]ilities. This section includes future appointments and future orders which are active, pending or scheduled. Future Appointments This section includes appointments that were scheduled to occur 6 months from the date of the Encounter, up to a maximum of 20 appointments. The data comes from all [place] treatment facilities. Appointment Date/Time Appointment Type Appointme nt Facility Name May 23, 2024 02:30 PM AM[facility]ULATORY [facility] Jun 02, 2024 10:30 AM [facility]ORY - [facility] Jun 26, 2024 03:00 PM AMBULATORY - MEDICINE [facility] Jul 02, 2024 11:00 AM AMBULATORY - NONE [facility] Social History: Smoking Status (Most current) and Tobacco Use (All prior to encounter date) This section includes the most current, and the historical, smoking and tobacco- related health factors from the [place] facility where the Encounter took place. Current Smoking Status This section includes the most current smoking, or tobacco-related health factor, from the [place] facility where the Encounter took place. Date/Time Current Smoking Status Comment Facil ity May 10, 2023 10:30 AM [place]-TOBACCO QUIT [address] [facility] Tobacco Use History This section includes a history of the smoking, or tobacco-related health factors, that were collected on or before the date of the Encounter. The data comes from the [place] facility where the Encounter took place. Date/Time Smoking Status/Tobacco Use Comment F acility May 10, 2023 10:30 AM [place]-TOBACCO QUIT [address] [facility] Encounter Notes: All associated encounter notes This section contains the clinical notes associated to the Encounter. Date/Time Encounter Note(s) Provider Source Apr 16, 2024 03:58 PM NUTRITION ADMINIST RATIVE NOTE: LOCAL TITLE: NUTRITION ADMINISTRATIVE NOTE RUST STANDARD TITLE: NUTRITION ADMINISTRATIVE NOTE DATE OF NOTE: APR 16, 2024@15:58 ENTRY DATE: APR 16, 2024@15:58:26 AUTHOR: SANDRO MG EXP COSIGNER: URGENCY: STATUS: COMPLETED did not show for scheduled nutrition appt. No contact letter to be sent. /buzz/ SANDRO MG Clinical Dietitian Signed: 04/16/2024 15:[address] [facility]
--- OUTSIDE RECORDS SUMMARY | 2024-05-19 05:39 | XMS_ITS | Continuity of Care Document ---
Author Name [facility] Organization [facility] Care Team Providers Care Tank Insulator Rubber Name Role Phone [facility] Unavailable Unavailable Problems Combined list of problems from Department of Defense and Veterans Affairs facilities. It does not include entries that were removed or entered in error. Problem Status Onset Date Problem Type Date of Resolution Comments Source Anemia Active Condition [facility] Anticoagulant control Active Condition [facility] Benign essential hypertension Active Condition [facility] Chronic Kidney Disease Stage 3A (SCT 281825947) Active Condition [facility] Diastolic dysfunction Active Condition [facility] Eczema (SCT 29549523) Active Condition [facility] Erectile dysfunction (SNOMED CT 398237812) Active Condition [facility] Exposure to potentially hazardous substance Active Condition [facility] Folate deficiency Active Condition [facility] Foot pain Active Condition [facility] Gout Active Condition [facility] History of calculus of kidney Active Condition [facility] History of recurrent deep vein thrombosis Active Condition [facility] Hyperlipidemia Active Condition [facility] Knee pain Active Condition [facility] Morbid obesity Active Condition [facility] Numbness Active Condition [facility] Obesity Active Condition [facility] Obstructive Sleep Apnea of Adult (SCT 3504281457976) Active Condition [facility] Osteoarthritis of knee Active Condition [facility] Pyuria Active Condition [facility] Stasis dermatitis Active Condition [facility] 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 [facility] Type 2 diabetes mellitus Active Condition [facility] Vitamin D Deficiency (SCT 89238460) Active Condition [facility] Diagnosis: ICD-10-CM I10 Essential (primary) hypertension Active Diagnosis [facility] Diagnosis: ICD-10-CM E78.5 Hyperlipidemia, unspecified Active Diagnosis [facility] Diagnosis: ICD-10-CM M19.90 Unspecified osteoarthritis, unspecified site Active Diagnosis [facility] Diagnosis: ICD-10-CM R09.81 Nasal congestion Active Diagnosis [facility] Diagnosis: ICD-10-CM J20.9 Acute bronchitis, unspecified Active Diagnosis [facility] Diagnosis: ICD-10-CM H25.13 Age-related nuclear cataract, bilateral Active Diagnosis [facility] Diagnosis: ICD-10-CM M10.9 Gout, unspecified Active Diagnosis [facility] Diagnosis: ICD-10-CM E66.01 Morbid (severe) obesity due to excess calories Active Diagnosis [facility] Diagnosis: ICD-10-CM B35.1 Tinea unguium Active Diagnosis [facility] Diagnosis: ICD-10-CM E11.22 Type 2 diabetes mellitus w diabetic chronic kidney disease Active Diagnosis [facility] Diagnosis: ICD-10-CM 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 Diagnosis: ICD-10-CM Z63.6 Dependent relative needing care at home Active Diagnosis [facility] Diagnosis: ICD-10-CM M17.0 Bilateral primary osteoarthritis of knee Active Diagnosis [facility] Diagnosis: ICD-10-CM E11.9 Type 2 diabetes mellitus without complications Active Diagnosis [facility] Medications Combined list of outpatient medications from Department of Defense and Veterans Affairs facilities.Medications provided include 1) outpatient medications from the last 15 months, and 2) patient-reported medications. Medication Details Route Status Patient Instructions Prescription Expires Prescription Number Last Dispense Date Ordering Provider Order Date Order Qty Source ACETAMINOPH EN 500MG TAB TAKE ONE TABLET BY MOUTH FOUR TIMES A DAY NEEDED ORAL ACTIVE Meghan URBINA 2014 [facility] ALBUTEROL SO4 90MCG/ACTUA T (CFC-F) INHL,ORAL,8 .5GM INHALE 1 PUFF BY ORAL INHALATI ON FOUR TIMES A DAY NEEDED SHAKE WELL. RINSE MOUTHPIE CE FREQUENT LY TO PREVENT CLOGGING . RESPIR ATORY (INHAL ATION) 05/03/2024 [id number] SHANE BE D 2024 1 [facility] AMLODIPINE BESYLATE 10MG TAB TAKE ONE TABLET BY MOUTH ONCE A DAY FOR HEART/BL OOD PRESSURE ORAL ACTIVE 11/07/2024 [id number] 5 MARIA DEL ROSARIO ESTES 2023 90 [facility] AMLODIPINE BESYLATE 10MG TAB TAKE ONE TABLET BY MOUTH ONCE A DAY FOR HEART/BL OOD PRESSURE ORAL DISCONT INUED 05/09/2024 [id number] 4 MARIA DEL ROSARIO ESTES 2023 90 [facility] AMLODIPINE BESYLATE 10MG TAB TAKE ONE TABLET BY MOUTH ONCE A DAY FOR HEART/BL OOD PRESSURE ORAL DISCONT INUED 05/09/2024 [id number] 4 MARIA DEL ROSARIO ESTES 2023 90 [facility] ATORVASTATI N CA 10MG TAB TAKE ONE-HALF TABLET BY MOUTH EVERY EVENING FOR HIGH CHOLESTE ROL ORAL DISCONT INUED BY PROVIDE R 05/20/2024 [id number] 4 LONNIE CASILLAS 2023 45 [facility] ATORVASTATI N CA 20MG TAB TAKE ONE-HALF TABLET BY MOUTH EVERY EVENING ORAL ACTIVE 04/17/2025 [id number] 5 LONNIE CASILLAS 2024 45 [facility] BENZONATATE 100MG CAP TAKE ONE CAPSULE BY MOUTH THREE TIMES A DAY NEEDED FOR COUGH ORAL 05/03/2024 [id number] 5 BESHANE 2024 90 [facility] CARBOXYMETH YLCELLULOSE NA 0.5% SOLN,OPH INSTILL 1 DROP IN BOTH EYES FOUR TIMES A DAY NEEDED FOR DRY EYE(S) OPHTHA LMIC ACTIVE 02/18/2025 [id number] 4 DELVIN HENDERSON 2023 45 [facility] CHOLECALCIF MARK ANTHONY 50MCG (2,000UNIT) TAB TAKE ONE TABLET BY MOUTH ONCE A DAY FOR VITAMIN D DEFICIEN CY ORAL ACTIVE 11/07/2024 [id number] 4 MARIA DEL ROSARIO ESTES 2023 100 [facility] CHOLECALCIF MARK ANTHONY 50MCG (2,000UNIT) TAB TAKE ONE TABLET BY MOUTH ONCE A DAY FOR VITAMIN D DEFICIEN CY ORAL DISCONT INUED 09/11/2023 [id number] 4 RA ARIC PÉREZ 2022 100 [facility] COLCHICINE 0.6MG TAB TAKE ONE TABLET BY MOUTH ONCE A DAY FOR GOUT (STOP MED AND CONTACT PROVIDER AT FIRST SIGN OF NAUSEA, VOMITING OR DIARRHEA ) ORAL ACTIVE 05/08/2025 [id number] 5 CONCETTA GEE 2024 90 [facility] COLCHICINE 0.6MG TAB TAKE ONE TABLET BY MOUTH ONCE A DAY FOR GOUT (STOP MED AND CONTACT PROVIDER AT FIRST SIGN OF NAUSEA, VOMITING OR DIARRHEA ) ORAL DISCONT INUED 05/08/2024 [id number] 4 ELYSE POOLE 2023 90 [facility] DICLOFENAC NA 1% GEL,TOP APPLY 2 GM TO AFFECTED AREA(S) FOUR TIMES A DAY NEEDED FOR PAIN/INF LAMMATIO N; NOT MORE THAN 16 GRAMS DAILY TO ANY LOWER EXTREMIT Y JOINT. NOT MORE THAN 8 GRAMS DAILY TO ANY UPPER EXTREMIT Y JOINT. MAX 32GM/DAY OVER ALL JOINTS. (MEASURE DOSE WITH RULER ATTACHED INSIDE BOX) LC Pimentel DISCONT INUED 11/07/2024 [id number] 4 MARIA DEL ROSARIO ESTES 2023 200 [facility] DICLOFENAC NA 1% GEL,TOP APPLY 2 GM TO AFFECTED AREA(S) FOUR TIMES A DAY NEEDED FOR PAIN/INF LAMMATIO N; NOT MORE THAN 16 GRAMS DAILY TO ANY LOWER EXTREMIT Y JOINT. NOT MORE THAN 8 GRAMS DAILY TO ANY UPPER EXTREMIT Y JOINT. MAX 32GM/DAY OVER ALL JOINTS. (MEASURE DOSE WITH RULER ATTACHED INSIDE BOX) LC Pimentel DISCONT INUED 05/08/2024 [id number] 4 ELYSE POOLE RTHA M 2023 200 [facility] DICLOFENAC NA 1% GEL,TOP APPLY 2 GM TO AFFECTED AREA(S) FOUR TIMES A DAY FOR PAIN NO MORE THAN 16 GM/DAY TO ANY LOWER EXTREMIT Y JOINT. NO MORE THAN 8 GM/DAY TO ANY UPPER EXTREMIT Y JOINT. MAX 32GM/DAY OVER ALL JOINTS.( MEASURE DOSE WITH RULER INSIDE BOX) LC Pimentel 05/05/2024 [id number] 5 AAKASH FREITAS 2024 100 [facility] ENALAPRIL MALEATE 20MG TAB TAKE TWO TABLETS BY MOUTH ONCE A DAY FOR HEART OR TO LOWER BLOOD PRESSURE ORAL ACTIVE 11/07/2024 [id number] 4 MARIA DEL ROSARIO ESTES [address] [facility] ENALAPRIL MALEATE 20MG TAB TAKE ONE TABLET BY MOUTH ONCE A DAY FOR HEART OR TO LOWER BLOOD PRESSURE ORAL DISCONT INUED (EDIT) 05/09/2024 [id number] 4 MARIA DEL ROSARIO ESTES 2023 90 [facility] EZETIMIBE 10MG TAB TAKE ONE TABLET BY MOUTH ONCE A DAY ORAL DISCONT INUED BY PROVIDE R 11/07/2024 [id number] 4 MARIA DEL ROSARIO ESTES 2023 90 [facility] FEBUXOSTAT 80MG TAB TAKE ONE TABLET BY MOUTH ONCE A DAY FOR GOUT ORAL ACTIVE 02/07/2025 [id number] 4 VALENTIN DOBBINS 2023 90 [facility] FEBUXOSTAT 80MG TAB TAKE ONE-HALF TABLET BY MOUTH ONCE A DAY FOR GOUT ORAL 01/26/2024 [id number] 4 ELYSE POOLE 2022 45 [facility] GUAIFENESIN 400MG TAB TAKE ONE TABLET BY MOUTH EVERY 6 HOURS NEEDED FOR MUCUS THINNING TAKE WITH 8 OUNCE GLASS OF WATER. ORAL 05/03/2024 [id number] 5 SHANE BE D 2024 120 [facility] HYDROPHILIC (EQV EUCERIN) CREAM,TOP APPLY SPARINGL Y TO AFFECTED AREA(S) ONCE A DAY FOR DRY SKIN (EXTERNA L USE ONLY) TOPICA L DISCONT INUED 09/06/2023 [id number] 4 RA ARIC PÉREZ 2022 454 [facility] HYDROPHILIC (EQV EUCERIN) CREAM,TOP APPLY SPARINGL Y TO AFFECTED AREA(S) ONCE A DAY DRY SKIN (EXTERNA L USE ONLY) TOPICA L 05/10/2024 [id number] 4 MARIA DEL ROSARIO ESTES 2023 454 [facility] LIDOCAINE 5% PATCH APPLY 1 PATCH TO SKIN SITE ONCE A DAY APPLY PATCH AND PRESS FIRMLY FOR 10-15 SECONDS. KEEP ON FOR 12 HOURS THEN REMOVE PATCH FOR 12 HOURS. TRANSD ERMAL ACTIVE 11/07/2024 [id number] 4 MARIA EDL ROSARIO ESTES 2023 30 [facility] MULTIVITAMI N CAP/TAB TAKE BY MOUTH ONCE A DAY ORAL ACTIVE Meghan URBINA 2015 [facility] ROSUVASTATI N CA 20MG TAB TAKE ONE-HALF TABLET BY MOUTH EVERY EVENING FOR HIGH CHOLESTE ROL .REPOR T ANY UNEXPLAI RAMAKRISHNA MUSCLE PAIN OR WEAKNESS TO PROVIDER ORAL 09/11/2023 [id number] 4 RA ARIC PÉREZ 2022 45 [facility] TADALAFIL 20MG TAB TAKE ONE TABLET BY MOUTH EVERY WEEK NEEDED (TAKE 30 MINUTES PRIOR TO SEXUAL ACTIVITY ) - LIMIT 18 DOSES PER 90 DAYS ORAL ACTIVE 12/06/2024 [id number] 4 MARIA DEL ROSARIO ESTES 2023 18 [facility] TRIAMCINOLO NE ACETONIDE 0.1% OINT,TOP APPLY SPARINGL Y TO AFFECTED AREA(S) TWICE A DAY FOR ATOPIC DERMATIT IS (EXTERNA L USE ONLY) TOPICA L 05/10/2024 [id number] 4 MARIA DEL ROSARIO ESTES 2023 80 [facility] Allergies, Adverse Reactions, Alerts Combined list of allergies from Department of [facility] and [facility] facilities. It does not include entries that were removed or entered in error. Substance Category Reaction Severity Reaction type Status Date Reported Comments Source ALLOPURINOL Propensity to adverse reactions to drug (finding) Joint pain active 7 [facility] EZETIMIBE Propensity to adverse reactions to drug (finding) Gout MODERATE active 4 [facility] GABAPENTIN Propensity to adverse reactions to drug (finding) Sedated active 0 [facility] MERCURY,COLETTE IATED Propensity to adverse reactions to drug (finding) active 5 [facility] ROSUVASTATIN Propensity to adverse reactions to drug (finding) Gout MODERATE active 4 [facility] SILDENAFIL Propensity to adverse reactions to drug (finding) Headache active 5 [facility] Immunizations Combined list of available immunizations from the Department of [facility] and [facility] facilities. Immunization Series Date Given Administered By Site Reaction Lot Number CVX Code Drug Supervisor Wire Rope Fabrication Status Comments Source INFLUENZA, HIGH-DOSE, TRIVALENT, PF 2024 VALENTINA GARCIA RIGHT DELTO ID [id number] 135 complet ed [facility] INFLUENZA VACCINE, QUADRIVALENT, ADJUVANTED 2022 LINA APARICIO RIGHT DELTO ID [id number] 205 complet ed [facility] INFLUENZA VACCINE, QUADRIVALENT, ADJUVANTED [address] [facility] INFLUENZA, INJECTABLE, QUADRIVALENT, PRESERVATIVE FREE 2018 150 complet ed [facility] TDAP 2018 115 complet ed Right Deltoid [facility] INFLUENZA, INJECTABLE, QUADRIVALENT, PRESERVATIVE FREE 2017 150 complet ed [facility] ZOSTER RECOMBINANT 2 2017 187 complet ed [facility] ZOSTER RECOMBINANT 1 2017 187 complet ed [facility] INFLUENZA, INJECTABLE, QUADRIVALENT, PRESERVATIVE FREE 2016 150 complet ed [facility] PNEUMOCOCCAL CONJUGATE PCV 13 2016 133 [facility] PPV23 2015 [facility] complet [facility] INFLUENZA, SEASONAL, INJECTABLE, PRESERVATIVE FREE 2014 140 complet ed [facility] ZOSTER LIVE 2014 121 complet ed [facility] INFLUENZA, UNSPECIFIED FORMULATION 2013 88 complet ed [facility] TDAP 2008 115 complet ed Left DeltSSM [facility] INFLUENZA, UNSPECIFIED FORMULATION 2008 88 complet ed [facility] Results Combined list of recent chemistry, hematology and other laboratory results from Department of Defense and Veterans Affairs, ranging from 15 months to all on record, depending upon the facility. Order Name Results Value Reference Range Date Interpretation Specimen Comments Source URIC ACID URATE [MASS/VOLU ME] IN SERUM OR PLASMA 8.9 mg/dL 3.5 - 7.2 01/24 H Specimen Type: PLASMA Comment: No hemolysis noted. Ordering Provider: MERLINE ESTES Report Released Date/Time: Jan 24, 2024 02:12 PM Reporting Lab: [facility] [address] [place] [phone] Performing Lab: [facility] [address] [address] [facility] LIPID PANEL (STL) CHOLESTERO L [MASS/VOLU ME] IN SERUM OR PLASMA 207 mg/dL 0 - 200 01/24 H Specimen Type: PLASMA Comment: No hemolysis noted. Ordering Provider: MERLINE ESTES Report Released Date/Time: Jan 24, 2024 02:12 PM Reporting Lab: [address] [address] Performing Lab: [address] [phone] [facility] LIPID PANEL (STL) TRIGLYCERI DE [MASS/VOLU ME] IN SERUM OR PLASMA 80 mg/dL 0 - 150 01/24 Specimen Type: PLASMA Comment: No hemolysis noted. Ordering Provider: MERLINE ESTES Report Released Date/Time: Jan 24, 2024 02:12 PM Reporting Lab: [address] [address] Performing Lab: [address] [phone] [facility] LIPID PANEL (STL) CHOLESTERO L IN LDL [MASS/VOLU ME] IN SERUM OR PLASMA BY CALCULATIO N 150 mg/dL 01/24 Specimen Type: PLASMA Comment: No hemolysis noted. Ordering Provider: MERLINE ESTES Report Released Date/Time: Jan 24, 2024 02:12 PM Reporting Lab: [address] [address] Performing Lab: [address] [address] [facility] LIPID PANEL (STL) CHOLESTERO L IN HDL [MASS/VOLU ME] IN SERUM OR PLASMA 41 mg/dL 40 01/24 Specimen Type: PLASMA Comment: No hemolysis noted. Ordering Provider: MERLINE ESTES Report Released Date/Time: Jan 24, 2024 02:12 PM Reporting Lab: [address] [address] Performing Lab: [address] [address] [facility] VITAMIN D, 25-HYDRO XY 25-HYDROXY VITAMIN D3 [MASS/VOLU ME] IN SERUM OR PLASMA 20.9 ng/mL 30 - 96 01/24 L Specimen Type: SERUM No comment entered. Ordering Provider: MERLINE ESTES Report Released Date/Time: Jan 24, 2024 02:12 PM Reporting Lab: [address] [address] Performing Lab: [phone] [place] [address] [facility] MICRAL/C REAT PROFILE (STL) ALBUMIN [MASS/VOLU ME] IN URINE 87.3 mg/L 01/24 Specimen Type: URINE No comment entered. Ordering Provider: MERLINE ESTES Report Released Date/Time: Jan 24, 2024 02:12 PM Reporting Lab: [address] [address] Performing Lab: [address] [address] [facility] MICRAL/C REAT PROFILE (STL) ALBUMIN/CR EATININE [MASS RATIO] IN URINE 30 mg/g 0 - 29 01/24 H Specimen Type: URINE No comment entered. Ordering Provider: MERLINE ESTES Report Released Date/Time: Jan 24, 2024 02:12 PM Reporting Lab: [address] [address] Performing Lab: [address] [address] [facility] MICRAL/C REAT PROFILE (STL) CREATININE [MASS/VOLU ME] IN URINE 294.7 mg/dL 63 - 166 01/24 H Specimen Type: URINE No comment entered. Ordering Provider: MERLINE ESTES Report Released Date/Time: Jan 24, 2024 02:12 PM Reporting Lab: [address] [place] [address] Performing Lab: [facility] [address] [facility] [address] [facility] COMPREHE NSIVE METABOLI C PANEL CREATININE [MASS/VOLU ME] IN SERUM OR PLASMA 1.49 mg/dL 0.7 - 1.3 01/24 H Specimen Type: PLASMA Comment: No hemolysis noted. Ordering Provider: MERLINE ESTES Report Released Date/Time: Jan 24, 2024 02:12 PM Reporting Lab: [address] [address] Performing Lab: [address] [phone] [place] [address] [facility] COMPREHE NSIVE METABOLI C PANEL UREA NITROGEN [MASS/VOLU ME] IN SERUM OR PLASMA 22.1 mg/dL 9.0 - 25.0 01/24 Specimen Type: PLASMA Comment: No hemolysis noted. Ordering Provider: MERLINE ESTES Report Released Date/Time: Jan 24, 2024 02:12 PM Reporting Lab: [address] [address] Performing Lab: [facility] [address] [place] [phone] [facility] COMPREHE NSIVE METABOLI C PANEL GLUCOSE [MASS/VOLU ME] IN SERUM OR PLASMA 125 mg/dL 72 - 99 01/24 H Specimen Type: PLASMA Comment: No hemolysis noted. Ordering Provider: MERLINE ESTES Report Released Date/Time: Jan 24, 2024 02:12 PM Reporting Lab: [facility] [address] [place] [phone] Performing Lab: [facility] [address] [place] [phone] [facility] COMPREHE NSIVE METABOLI C PANEL SODIUM [MOLES/VOL UME] IN SERUM OR PLASMA 143 meq/L 136 - 145 01/24 Specimen Type: PLASMA Comment: No hemolysis noted. Ordering Provider: MERLINE ESTES Report Released Date/Time: Jan 24, 2024 02:12 PM Reporting Lab: [facility] [address] [facility] [address] Performing Lab: [facility] [address] [place] [phone] [facility] COMPREHE NSIVE METABOLI C PANEL POTASSIUM [MOLES/VOL UME] IN SERUM OR PLASMA 3.8 meq/L 3.5 - 5 01/24 Specimen Type: PLASMA Comment: No hemolysis noted. Ordering Provider: MERLINE ESTES Report Released Date/Time: Jan 24, 2024 02:12 PM Reporting Lab: [address] [address] Performing Lab: [address] [address] [facility] COMPREHE NSIVE METABOLI C PANEL CHLORIDE [MOLES/VOL UME] IN SERUM OR PLASMA 112 meq/L 98 - 107 01/24 H Specimen Type: PLASMA Comment: No hemolysis noted. Ordering Provider: MERLINE ESTES Report Released Date/Time: Jan 24, 2024 02:12 PM Reporting Lab: [facility] [address] [place] [phone] Performing Lab: [address] [address] [facility] COMPREHE NSIVE METABOLI C PANEL CARBON DIOXIDE, TOTAL [MOLES/VOL UME] IN SERUM OR PLASMA 22 meq/L 22 - 31 01/24 Specimen Type: PLASMA Comment: No hemolysis noted. Ordering Provider: MERLINE ESTES Report Released Date/Time: Jan 24, 2024 02:12 PM Reporting Lab: [facility] [address] [place] [phone] Performing Lab: [facility] [address] [place] [phone] [facility] COMPREHE NSIVE METABOLI C PANEL CALCIUM [MASS/VOLU ME] IN SERUM OR PLASMA 9.9 mg/dL 8.4 - 10.4 01/24 Specimen Type: PLASMA Comment: No hemolysis noted. Ordering Provider: MERLINE ESTES Report Released Date/Time: Jan 24, 2024 02:12 PM Reporting Lab: [facility] [address] [place] [phone] Performing Lab: [facility] [address] [place] [phone] [facility] COMPREHE NSIVE METABOLI C PANEL PROTEIN [MASS/VOLU ME] IN SERUM OR PLASMA 7.5 g/dL 6 - 8.6 01/24 Specimen Type: PLASMA Comment: No hemolysis noted. Ordering Provider: MERLINE ESTES Report Released Date/Time: Jan 24, 2024 02:12 PM Reporting Lab: [facility] [address] [place] [phone] Performing Lab: [address] [address] [facility] COMPREHE NSIVE METABOLI C PANEL ALBUMIN [MASS/VOLU ME] IN SERUM OR PLASMA 4.0 g/dL 3.4 - 5 01/24 Specimen Type: PLASMA Comment: No hemolysis noted. Ordering Provider: MERLINE ESTES Report Released Date/Time: Jan 24, 2024 02:12 PM Reporting Lab: [facility] [address] [place] [phone] Performing Lab: [facility] [address] [place] [phone] [facility] COMPREHE NSIVE METABOLI C PANEL BILIRUBIN. TOTAL [MASS/VOLU ME] IN SERUM OR PLASMA 0.5 mg/dL 0.2 - 1.2 01/24 Specimen Type: PLASMA Comment: No hemolysis noted. Ordering Provider: MERLINE ESTES Report Released Date/Time: Jan 24, 2024 02:12 PM Reporting Lab: [facility] [address] [place] [phone] Performing Lab: [facility] [address] [place] [phone] [facility] COMPREHE NSIVE METABOLI C PANEL ALKALINE PHOSPHATAS E [ENZYMATIC ACTIVITY/V OLUME] IN SERUM OR PLASMA 76 U/L 40 - 150 01/24 Specimen Type: PLASMA Comment: No hemolysis noted. Ordering Provider: MERLINE ESTES Report Released Date/Time: Jan 24, 2024 02:12 PM Reporting Lab: [place] [address] [place] [address] Performing Lab: [place] [address] [place] [phone] [facility] COMPREHE NSIVE METABOLI C PANEL ASPARTATE AMINOTRANS FERASE [ENZYMATIC ACTIVITY/V OLUME] IN SERUM OR PLASMA 15 U/L 5 - 34 01/24 Specimen Type: PLASMA Comment: No hemolysis noted. Ordering Provider: MERLINE ESTES Report Released Date/Time: Jan 24, 2024 02:12 PM Reporting Lab: [place] [address] Performing Lab: [place] [address] [place] [phone] [facility] COMPREHE NSIVE METABOLI C PANEL ALANINE AMINOTRANS FERASE [ENZYMATIC ACTIVITY/V OLUME] IN SERUM OR PLASMA 9 U/L 8 - 40 01/24 Specimen Type: PLASMA Comment: No hemolysis noted. Ordering Provider: MERLINE ESTES Report Released Date/Time: Jan 24, 2024 02:12 PM Reporting Lab: [place] [address] Performing Lab: [place] [phone] [facility] COMPREHE NSIVE METABOLI C PANEL GLOMERULAR FILTRATION RATE/1.73 SQ M.PREDICTE D [VOLUME RATE/AREA] IN SERUM, PLASMA OR BLOOD BY CREATININE -BASED FORMULA (CKD-EPI 2020) 49.6 60 01/24 Specimen Type: PLASMA Comment: No hemolysis noted. Ordering Provider: MERLINE ESTES Report Released Date/Time: Jan 24, 2024 02:12 PM Reporting Lab: [address] [address] Performing Lab: [facility] [address] [facility] [address] [facility] CBC LEUKOCYTES [#/VOLUME] IN BLOOD BY AUTOMATED COUNT 6.1 10*3/uL 3.6 - 11.2 01/24 Specimen Type: BLOOD No comment entered. Ordering Provider: MERLINE ESTES Report Released Date/Time: Jan 24, 2024 02:12 PM Reporting Lab: [address] [id number] Performing Lab: [address] [address] [facility] CBC ERYTHROCYT ES [#/VOLUME] IN BLOOD BY AUTOMATED COUNT 4.27 10*6/uL 4.10 - 5.70 01/24 Specimen Type: BLOOD No comment entered. Ordering Provider: MERLINE ESTES Report Released Date/Time: Jan 24, 2024 02:12 PM Reporting Lab: [address] [address] Performing Lab: [address] [address] [facility] CBC HEMOGLOBIN [MASS/VOLU ME] IN BLOOD 13.0 g/dL 13.1 - 16.8 01/24 L Specimen Type: BLOOD No comment entered. Ordering Provider: MERLINE ESTES Report Released Date/Time: Jan 24, 2024 02:12 PM Reporting Lab: [address] [address] Performing Lab: [address] [address] [facility] CBC HEMATOCRIT [VOLUME FRACTION] OF BLOOD 39.4 38.2 - 48.4 01/24 Specimen Type: BLOOD No comment entered. Ordering Provider: MERLINE ESTES Report Released Date/Time: Jan 24, 2024 02:12 PM Reporting Lab: [address] [address] Performing Lab: [facility] [address] [place] [phone] [facility] CBC MCV [ENTITIC VOLUME] BY AUTOMATED COUNT 92.3 fL 80.0 - 100.0 01/24 Specimen Type: BLOOD No comment entered. Ordering Provider: MERLINE ESTES Report Released Date/Time: Jan 24, 2024 02:12 PM Reporting Lab: [address] [address] Performing Lab: [address] [address] [facility] CBC MCH [ENTITIC MASS] BY AUTOMATED COUNT 30.4 pg 27.0 - 34.0 01/24 Specimen Type: BLOOD No comment entered. Ordering Provider: MERLINE ESTES Report Released Date/Time: Jan 24, 2024 02:12 PM Reporting Lab: [address] [address] Performing Lab: [address] [address] [facility] CBC MCHC [MASS/VOLU ME] BY AUTOMATED COUNT 33.0 g/dL 33.0 - 36.0 01/24 Specimen Type: BLOOD No comment entered. Ordering Provider: MERLINE ESTES Report Released Date/Time: Jan 24, 2024 02:12 PM Reporting Lab: [address] [address] Performing Lab: [address] [address] [facility] CBC PLATELETS [#/VOLUME] IN BLOOD BY AUTOMATED COUNT 275 10*3/uL 150 - 400 01/24 Specimen Type: BLOOD No comment entered. Ordering Provider: MERLINE ESTES Report Released Date/Time: Jan 24, 2024 02:12 PM Reporting Lab: [address] [address] Performing Lab: [address] [phone] [facility] CBC PLATELET MEAN VOLUME [ENTITIC VOLUME] IN BLOOD BY AUTOMATED COUNT 10.6 fL 7.5 - 11.2 01/24 Specimen Type: BLOOD No comment entered. Ordering Provider: MERLINE ESTES Report Released Date/Time: Jan 24, 2024 02:12 PM Reporting Lab: [address] [address] Performing Lab: [place] [phone] [facility] CBC ERYTHROCYT E DISTRIBUTI ON WIDTH [RATIO] BY AUTOMATED COUNT 12.8 11.8 - 15.1 01/24 Specimen Type: BLOOD No comment entered. Ordering Provider: MERLINE ESTES Report Released Date/Time: Jan 24, 2024 02:12 PM Reporting Lab: [place] [id number] Performing Lab: [place] [phone] [facility] CBC LYMPHOCYTE S/100 LEUKOCYTES IN BLOOD BY AUTOMATED COUNT 34 01/24 Specimen Type: BLOOD No comment entered. Ordering Provider: MERLINE ESTES Report Released Date/Time: Jan 24, 2024 02:12 PM Reporting Lab: [address] [address] Performing Lab: [phone] [place] [address] [facility] CBC MONOCYTES/ 100 LEUKOCYTES IN BLOOD BY AUTOMATED COUNT 10 01/24 Specimen Type: BLOOD No comment entered. Ordering Provider: MERLINE ESTES Report Released Date/Time: Jan 24, 2024 02:12 PM Reporting Lab: [facility] [address] [place] [address] Performing Lab: [address] [phone] [facility] CBC NEUTROPHIL S/100 LEUKOCYTES IN BLOOD BY AUTOMATED COUNT 52 01/24 Specimen Type: BLOOD No comment entered. Ordering Provider: MERLINE ESTES Report Released Date/Time: Jan 24, 2024 02:12 PM Reporting Lab: [facility] [address] [place] [address] Performing Lab: [facility] [address] [place] [phone] [facility] CBC EOSINOPHIL S/100 LEUKOCYTES IN BLOOD BY AUTOMATED COUNT 3 01/24 Specimen Type: BLOOD No comment entered. Ordering Provider: MERLINE ESTES Report Released Date/Time: Jan 24, 2024 02:12 PM Reporting Lab: [facility] [address] [place] [phone] Performing Lab: [facility] [address] [place], [place] [id number] [address] [facility] CBC BASOPHILS/ 100 LEUKOCYTES IN BLOOD BY AUTOMATED COUNT 1 01/24 Specimen Type: BLOOD No comment entered. Ordering Provider: MERLINE ESTES Report Released Date/Time: Jan 24, 2024 02:12 PM Reporting Lab: [facility] [address] [place] [address] Performing Lab: [address] [phone] [facility] CBC LYMPHOCYTE S [#/VOLUME] IN BLOOD BY AUTOMATED COUNT 2.07 10*3/uL 0.77 - 4.50 01/24 Specimen Type: BLOOD No comment entered. Ordering Provider: MERLINE ESTES Report Released Date/Time: Jan 24, 2024 02:12 PM Reporting Lab: [facility] [address] [place] [phone] Performing Lab: [facility] [address] [place] [address] [phone] [facility] [facility] [facility] CBC MONOCYTES [#/VOLUME] IN BLOOD BY AUTOMATED COUNT 0.62 10*3/uL 0.19 - 0.80 01/24 Specimen Type: BLOOD No comment entered. Ordering Provider: MERLINE ESTES Report Released Date/Time: Jan 24, 2024 02:12 PM Reporting Lab: [address] [address] Performing Lab: [address] [phone] [place] [address] [facility] CBC NEUTROPHIL S [#/VOLUME] IN BLOOD BY AUTOMATED COUNT 3.21 10*3/uL 2.10 - 8.00 01/24 Specimen Type: BLOOD No comment entered. Ordering Provider: MERLINE ESTES Report Released Date/Time: Jan 24, 2024 02:12 PM Reporting Lab: [place] [address] Performing Lab: [address] [facility] CBC EOSINOPHIL S [#/VOLUME] IN BLOOD BY AUTOMATED COUNT 0.19 10*3/uL 0.00 - 0.60 01/24 Specimen Type: BLOOD No comment entered. Ordering Provider: MERLINE ESTES Report Released Date/Time: Jan 24, 2024 02:12 PM Reporting Lab: [place] [id number] Performing Lab: [address] [facility] CBC BASOPHILS [#/VOLUME] IN BLOOD BY AUTOMATED COUNT 0.04 10*3/uL 0.00 - 0.20 01/24 Specimen Type: BLOOD No comment entered. Ordering Provider: MERLINE ESTES Report Released Date/Time: Jan 24, 2024 02:12 PM Reporting Lab: [place] [id number] Performing Lab: [place] [phone] [facility] URINALYS IS W/ CX REFLEX (STL-PB) COLOR OF URINE Yellow 01/24 Specimen Type: URINE No comment entered. Ordering Provider: MERLINE ESTES Report Released Date/Time: Jan 24, 2024 02:12 PM Reporting Lab: [address] [place] [address] Performing Lab: [address] [phone] [place] [address] [facility] URINALYS IS W/ CX REFLEX (STL-PB) BILIRUBIN. TOTAL [PRESENCE] IN URINE BY TEST STRIP Negative mg/dL 01/24 Specimen Type: URINE No comment entered. Ordering Provider: MERLINE ESTES Report Released Date/Time: Jan 24, 2024 02:12 PM Reporting Lab: [place] [phone] Performing Lab: [place] [phone] [facility] URINALYS IS W/ CX REFLEX (STL-PB) PH OF URINE BY TEST STRIP 6.0 5.0 - 8.0 01/24 Specimen Type: URINE No comment entered. Ordering Provider: MERLINE ESTES Report Released Date/Time: Jan 24, 2024 02:12 PM Reporting Lab: [place] [id number] Performing Lab: [place] [id number] [place] [address] [facility] URINALYS IS W/ CX REFLEX (STL-PB) LEUKOCYTES [#/AREA] IN URINE SEDIMENT BY MICROSCOPY HIGH POWER FIELD 16 /[HPF] 0 - 5 01/24 H Specimen Type: URINE No comment entered. Ordering Provider: MERLINE ESTES Report Released Date/Time: Jan 24, 2024 02:12 PM Reporting Lab: [address] [address] Performing Lab: [place] [phone] [facility] URINALYS IS W/ CX REFLEX (STL-PB) ERYTHROCYT ES [#/VOLUME] IN URINE SEDIMENT BY MICROSCOPY HIGH POWER FIELD 3 /[HPF] 0 - 5 01/24 Specimen Type: URINE No comment entered. Ordering Provider: MERLINE ESTES Report Released Date/Time: Jan 24, 2024 02:12 PM Reporting Lab: [facility] [address] [place] [phone] Performing Lab: [facility] [address] [facility] URINALYS IS W/ CX REFLEX (STL-PB) APPEARANCE OF URINE Clear 01/24 Specimen Type: URINE No comment entered. Ordering Provider: MERLINE ESTES Report Released Date/Time: Jan 24, 2024 02:12 PM Reporting Lab: [facility] [place] [phone] Performing Lab: [place] [phone] [facility] URINALYS IS W/ CX REFLEX (STL-PB) NITRITE [PRESENCE] IN URINE BY TEST STRIP Negative mg/dL 01/24 Specimen Type: URINE No comment entered. Ordering Provider: MERLINE ESTES Report Released Date/Time: Jan 24, 2024 02:12 PM Reporting Lab: [place] [address] [place] [phone] Performing Lab: [facility] [address] [place] [phone] [facility] URINALYS IS W/ CX REFLEX (STL-PB) BACTERIA [PRESENCE] IN URINE SEDIMENT BY LIGHT MICROSCOPY RARE/[HP F] 01/24 Specimen Type: URINE No comment entered. Ordering Provider: MERLINE ESTES Report Released Date/Time: Jan 24, 2024 02:12 PM Reporting Lab: [facility] [address] Performing Lab: [facility] [address] [place] [phone] [facility] URINALYS IS W/ CX REFLEX (STL-PB) MUCUS [PRESENCE] IN URINE SEDIMENT BY LIGHT MICROSCOPY RARE/[LP F] 01/24 Specimen Type: URINE No comment entered. Ordering Provider: MERLINE ESTES Report Released Date/Time: Jan 24, 2024 02:12 PM Reporting Lab: [address] [address] Performing Lab: [place] [phone] [facility] URINALYS IS W/ CX REFLEX (STL-PB) HYALINE CASTS [#/AREA] IN URINE SEDIMENT BY MICROSCOPY LOW POWER FIELD 18 /[LPF] 0 - 5 01/24 Specimen Type: URINE No comment entered. Ordering Provider: MERLINE ESTES Report Released Date/Time: Jan 24, 2024 02:12 PM Reporting Lab: [place] [address] Performing Lab: [address] [phone] [facility] [facility] URINALYS IS W/ CX REFLEX (STL-PB) GLUCOSE [MASS/VOLU ME] IN URINE BY TEST STRIP Normalmg /dL 01/24 Specimen Type: URINE No comment entered. Ordering Provider: MERLINE ESTES Report Released Date/Time: Jan 24, 2024 02:12 PM Reporting Lab: [place] [id number] Performing Lab: [address] [phone] [place] [address] [facility] URINALYS IS W/ CX REFLEX (STL-PB) PROTEIN [MASS/VOLU ME] IN URINE BY TEST STRIP 30 mg/dL 01/24 H Specimen Type: URINE No comment entered. Ordering Provider: MERLINE ESTES Report Released Date/Time: Jan 24, 2024 02:12 PM Reporting Lab: [address] [address] Performing Lab: [address] [phone] [place] [address] [facility] URINALYS IS W/ CX REFLEX (STL-PB) URN.UROBIL INOGEN Normalmg /dL 01/24 Specimen Type: URINE No comment entered. Ordering Provider: MERLINE ESTES Report Released Date/Time: Jan 24, 2024 02:12 PM Reporting Lab: [place] [address] Performing Lab: [place] [phone] [facility] URINALYS IS W/ CX REFLEX (STL-PB) HEMOGLOBIN [MASS/VOLU ME] IN URINE BY TEST STRIP Negative mg/dL 01/24 Specimen Type: URINE No comment entered. Ordering Provider: MERLINE ESTES Report Released Date/Time: Jan 24, 2024 02:12 PM Reporting Lab: [place] [address] Performing Lab: [address] [facility] URINALYS IS W/ CX REFLEX (STL-PB) KETONES [MASS/VOLU ME] IN URINE BY TEST STRIP Negative mg/dL 01/24 Specimen Type: URINE No comment entered. Ordering Provider: MERLINE ESTES Report Released Date/Time: Jan 24, 2024 02:12 PM Reporting Lab: [facility] [address] [place] [address] Performing Lab: [address] [facility] URINALYS IS W/ CX REFLEX (STL-PB) URN.LEUK.E ST. 250 mg/dL 01/24 H Specimen Type: URINE No comment entered. Ordering Provider: MERLINE ESTES Report Released Date/Time: Jan 24, 2024 02:12 PM Reporting Lab: [place] [address] Performing Lab: [place] [phone] [facility] URINALYS IS W/ CX REFLEX (STL-PB) SPECIFIC GRAVITY OF URINE 1.026 01/24 Specimen Type: URINE No comment entered. Ordering Provider: MERLINE ESTES Report Released Date/Time: Jan 24, 2024 02:12 PM Reporting Lab: [place] [phone] Performing Lab: [address] [phone] [place] [address] [facility] URINALYS IS W/ CX REFLEX (STL-PB) *URINE FOR REFLEX CULTURE CX ORDERED [facility] [employer] [facility] 01/24 Specimen Type: URINE No comment entered. Ordering Provider: MERLINE ESTES Report Released Date/Time: Jan 24, 2024 02:12 PM Reporting Lab: [place] [address] Performing Lab: [address] [phone] [facility] [facility] [facility] GLUCOSE, BLOOD-po ct (STL) GLUCOSE [MASS/VOLU ME] IN BLOOD BY AUTOMATED TEST STRIP 99 mg/dL 72 - 99 01/23 Specimen Type: BLOOD Comment: Test Performed by: [id number] Meter #: [id number] Ordering Provider: NILA DYER Report Released Date/Time: Jan 24, 2024 02:10 PM Reporting Lab: [facility] [address] [facility] [address] Performing Lab: [facility] [address] [place] [phone] [facility] URIC ACID URATE [MASS/VOLU ME] IN SERUM OR PLASMA 9.8 mg/dL 3.5 - 7.2 09/10 H Specimen Type: PLASMA Comment: No hemolysis noted. Ordering Provider: SUJATA POOLE Report Released Date/Time: Sep 11, 2023 03:16 PM Reporting Lab: [address] [address] Performing Lab: [address] [address] [facility] COMPREHE NSIVE METABOLI C PANEL CREATININE [MASS/VOLU ME] IN SERUM OR PLASMA 1.22 mg/dL 0.7 - 1.3 09/10 Specimen Type: PLASMA Comment: No hemolysis noted. Ordering Provider: SUJATA POOLE Report Released Date/Time: Sep 11, 2023 03:16 PM Reporting Lab: [facility] [address] [facility] [address] Performing Lab: [facility] [address] [facility] [address] [facility] COMPREHE NSIVE METABOLI C PANEL UREA NITROGEN [MASS/VOLU ME] IN SERUM OR PLASMA 22.4 mg/dL 9.0 - 25.0 09/10 Specimen Type: PLASMA Comment: No hemolysis noted. Ordering Provider: SUJATA POOLE Report Released Date/Time: Sep 11, 2023 03:16 PM Reporting Lab: [place] [address] [facility] [address] Performing Lab: [facility] [address] [facility] [address] [facility] COMPREHE NSIVE METABOLI C PANEL GLUCOSE [MASS/VOLU ME] IN SERUM OR PLASMA 107 mg/dL 72 - 99 09/10 H Specimen Type: PLASMA Comment: No hemolysis noted. Ordering Provider: SUJATA POOLE Report Released Date/Time: Sep 11, 2023 03:16 PM Reporting Lab: [place] [address] [facility] [phone] Performing Lab: [facility] [address] [facility] [address] [facility] COMPREHE NSIVE METABOLI C PANEL SODIUM [MOLES/VOL UME] IN SERUM OR PLASMA 142 meq/L 136 - 145 09/10 Specimen Type: PLASMA Comment: No hemolysis noted. Ordering Provider: SUJATA POOLE Report Released Date/Time: Sep 11, 2023 03:16 PM Reporting Lab: [place] [address] [facility] [address] Performing Lab: [facility] [address] [place] [phone] [facility] COMPREHE NSIVE METABOLI C PANEL POTASSIUM [MOLES/VOL UME] IN SERUM OR PLASMA 4.0 meq/L 3.5 - 5 09/10 Specimen Type: PLASMA Comment: No hemolysis noted. Ordering Provider: SUJATA POOLE Report Released Date/Time: Sep 11, 2023 03:16 PM Reporting Lab: [facility] [address] [facility] [address] Performing Lab: [facility] [address] [facility] [address] [facility] COMPREHE NSIVE METABOLI C PANEL CHLORIDE [MOLES/VOL UME] IN SERUM OR PLASMA 109 meq/L 98 - 107 09/10 H Specimen Type: PLASMA Comment: No hemolysis noted. Ordering Provider: SUJATA POOLE Report Released Date/Time: Sep 11, 2023 03:16 PM Reporting Lab: [facility] [address] [facility] [address] Performing Lab: [facility] [address] [facility] [address] [facility] COMPREHE NSIVE METABOLI C PANEL CARBON DIOXIDE, TOTAL [MOLES/VOL UME] IN SERUM OR PLASMA 26 meq/L 22 - 31 09/10 Specimen Type: PLASMA Comment: No hemolysis noted. Ordering Provider: SUJATA POOLE Report Released Date/Time: Sep 11, 2023 03:16 PM Reporting Lab: [facility] [address] [facility] [address] Performing Lab: [facility] [address] [facility] [address] [facility] COMPREHE NSIVE METABOLI C PANEL CALCIUM [MASS/VOLU ME] IN SERUM OR PLASMA 10.1 mg/dL 8.4 - 10.4 09/10 Specimen Type: PLASMA Comment: No hemolysis noted. Ordering Provider: SUJATA POOLE Report Released Date/Time: Sep 11, 2023 03:16 PM Reporting Lab: [facility] [address] [facility] [address] Performing Lab: [facility] [address] [facility] [address] [facility] COMPREHE NSIVE METABOLI C PANEL PROTEIN [MASS/VOLU ME] IN SERUM OR PLASMA 7.2 g/dL 6 - 8.6 09/10 Specimen Type: PLASMA Comment: No hemolysis noted. Ordering Provider: SUJATA POOLE Report Released Date/Time: Sep 11, 2023 03:16 PM Reporting Lab: [place] [address] [facility] [address] Performing Lab: [place] [address] [facility] [address] [facility] COMPREHE NSIVE METABOLI C PANEL ALBUMIN [MASS/VOLU ME] IN SERUM OR PLASMA 3.9 g/dL 3.4 - 5 09/10 Specimen Type: PLASMA Comment: No hemolysis noted. Ordering Provider: SUJATA POOLE Report Released Date/Time: Sep 11, 2023 03:16 PM Reporting Lab: [place] [address] [facility] [address] Performing Lab: [place] [address] [facility] [address] [facility] COMPREHE NSIVE METABOLI C PANEL BILIRUBIN. TOTAL [MASS/VOLU ME] IN SERUM OR PLASMA 0.8 mg/dL 0.2 - 1.2 09/10 Specimen Type: PLASMA Comment: No hemolysis noted. Ordering Provider: SUJATA POOLE Report Released Date/Time: Sep 11, 2023 03:16 PM Reporting Lab: [place] [address] [facility] [address] Performing Lab: [place] [address] [facility] [address] [facility] COMPREHE NSIVE METABOLI C PANEL ALKALINE PHOSPHATAS E [ENZYMATIC ACTIVITY/V OLUME] IN SERUM OR PLASMA 79 U/L 40 - 150 09/10 Specimen Type: PLASMA Comment: No hemolysis noted. Ordering Provider: SUJATA POOLE Report Released Date/Time: Sep 11, 2023 03:16 PM Reporting Lab: [facility] [address] [facility] [address] Performing Lab: [facility] [address] [facility] [address] [facility] COMPREHE NSIVE METABOLI C PANEL ASPARTATE AMINOTRANS FERASE [ENZYMATIC ACTIVITY/V OLUME] IN SERUM OR PLASMA 20 U/L 5 - 34 09/10 Specimen Type: PLASMA Comment: No hemolysis noted. Ordering Provider: SUJATA POOLE Report Released Date/Time: Sep 11, 2023 03:16 PM Reporting Lab: [facility] [address] [facility] [address] Performing Lab: [facility] [address] [facility] [address] [facility] COMPREHE NSIVE METABOLI C PANEL ALANINE AMINOTRANS FERASE [ENZYMATIC ACTIVITY/V OLUME] IN SERUM OR PLASMA 14 U/L 8 - 40 09/10 Specimen Type: PLASMA Comment: No hemolysis noted. Ordering Provider: SUJATA POOLE Report Released Date/Time: Sep 11, 2023 03:16 PM Reporting Lab: [facility] [address] [facility] [address] Performing Lab: [facility] [address] [facility] [address] [facility] COMPREHE NSIVE METABOLI C PANEL GLOMERULAR FILTRATION RATE/1.73 SQ M.PREDICTE D [VOLUME RATE/AREA] IN SERUM, PLASMA OR BLOOD BY CREATININE -BASED FORMULA (CKD-EPI 2020) 63.0 60 09/10 Specimen Type: PLASMA Comment: No hemolysis noted. Ordering Provider: SUJATA POOLE Report Released Date/Time: Sep 11, 2023 03:16 PM Reporting Lab: [facility] [address] [facility] [address] Performing Lab: [facility] [address] [facility] [address] [facility] Vital Signs Combined list of inpatient and outpatient Vital Signs from Department of Defense and Veterans Affairs, ranging from 12 months to all on record, depending upon the facility. Vital Sign Value Date Comments Source SYSTOLIC BLOOD PRESSURE 130 04/15/2024 13:16:24 [facility] DIASTOLIC BLOOD PRESSURE 76 04/15/2024 13:16:24 [facility] PULSE OXIMETRY 97 04/15/2024 13:16:24 [facility] WEIGHT 409 04/15/2024 13:16:24 [facility] BMI 57 kg/m2 04/15/2024 13:16:24 [facility] PAIN 4 04/15/2024 13:16:24 [facility] HEIGHT 71 04/15/2024 13:16:24 [facility] TEMPERATURE 97.7 04/15/2024 13:16:24 [facility] PULSE 87 04/15/2024 13:16:24 [facility] RESPIRATION 18 04/15/2024 13:16:24 [facility] SYSTOLIC BLOOD PRESSURE 170 04/05/2024 09:40:00 [facility] DIASTOLIC BLOOD PRESSURE 90 04/05/2024 09:40:00 [facility] PAIN 3 04/05/2024 09:40:00 [facility] TEMPERATURE 98 04/05/2024 09:40:00 [facility] PULSE 80 04/05/2024 09:40:00 [facility] RESPIRATION 18 04/05/2024 09:40:00 [facility] SYSTOLIC BLOOD PRESSURE 146 04/03/2024 11:28:55 [facility] DIASTOLIC BLOOD PRESSURE 80 04/03/2024 11:28:55 [facility] PULSE OXIMETRY 95 04/03/2024 11:28:55 [facility] PAIN 0 04/03/2024 11:28:55 [facility] TEMPERATURE 98.4 04/03/2024 11:28:55 [facility] PULSE 75 04/03/2024 11:28:55 [facility] RESPIRATION 18 04/03/2024 11:28:55 [facility] SYSTOLIC BLOOD PRESSURE 163 01/24/2024 13:40:00 [facility] DIASTOLIC BLOOD PRESSURE 90 01/24/2024 13:40:00 [facility] PULSE OXIMETRY 96 01/24/2024 13:40:00 [facility] WEIGHT 415.1 01/24/2024 13:40:00 [facility] BMI 58 kg/m2 01/24/2024 13:40:00 [facility] PAIN 0 01/24/2024 13:40:00 [facility] TEMPERATURE 97.8 01/24/2024 13:40:00 [facility] PULSE 71 01/24/2024 13:40:00 [facility] RESPIRATION 16 01/24/2024 13:40:00 [facility] SYSTOLIC BLOOD PRESSURE 138 12/24/2023 14:48:19 [facility] DIASTOLIC BLOOD PRESSURE 85 12/24/2023 14:48:19 [facility] PULSE OXIMETRY 95 12/24/2023 14:48:19 [facility] WEIGHT 421.9 12/24/2023 14:48:19 [facility] BMI 59 kg/m2 12/24/2023 14:48:19 [facility] PAIN 6 12/24/2023 14:48:19 [facility] TEMPERATURE 98.1 12/24/2023 14:48:19 [facility] PULSE 73 12/24/2023 14:48:19 [facility] RESPIRATION 16 12/24/2023 14:48:19 [facility] Encounters Combined list of: 1) Encounters from [facility] [place] [facility] facilities going backup to the last 18 months, not all [place] inpatient encounters are included; 2) Encounters from the [facility] facilities going backup to 280 months. Location Location Details Encounter Type Encounter Number Reason For Visit Attending Provider ADM Date DC Date Status Disposition Source [facility] Outpatient Encounter [id number] 11/23 [facility] OFF/OP [place]SL[place] 55 [id number] Diagnos is: ICD-10- CM M10.9 Gout, unspeci ELVI Jeffries M [facility]/29 [facility] [facility] NEW PATIENT [id number] Diagnos is: ICD-10- CM E11.9 Type 2 diabete s mellitu s without complic ations Bigg TONG 12/27 [facility] SELF CARE MNGMENT TRAINING [id number] Diagnos is: ICD-10- CM M17.0 Bilater al primary osteoar thritis of knee FLINT,ANDR EW H 01/01 [facility] OFFICE O/P EST HI 40-54 MIN [id number] [id number] 2 Diagnos is: ICD-10- CM M10.9 Gout, unspeci fied ELVI POOLE M 01/24 [facility] QNHP OL DIG ASSMT&MGMT 5-10 [id number] [id number] Diagnos is: ICD-10- CM M10.9 Gout, unspeci fied KVNG VEGA P 01/25 [facility] Outpatient Encounter [id number] 02/01 [facility] Outpatient Encounter [id number] [id number] 02/02 [facility] HC PRO PHONE CALL 21-30 MIN 93890-3.65 [id number] 7 Diagnos is: ICD-10- CM M17.0 Bilater al primary osteoar thritis of knee GREG BELL L 02/05 [facility] OFFICE O/P EST LOW 20-29 MIN [id number] [id number] 3 Diagnos is: ICD-10- CM B35.1 Tinea unguium MICHEILNE LOU 02/07 [facility] Outpatient Encounter [id number] [id number] 02/12 [facility] HLTH BHV ASSMT/REAS SESSMENT [id number] [id number] 2 Diagnos is: ICD-10- CM Z63.6 Depende nt relativ e needing care at home HILL ETSES 02/15 [facility] PROGRAM INTAKE ASSESSMENT [id number] [id number] 2 Diagnos is: ICD-10- CM M10.9 Gout, unspeci fied MANDORCA,L LOUIE L 02/20 [facility] Outpatient Encounter [id number] [id number] 2 02/21 [facility] Outpatient Encounter [id number] [id number] CATERINA JESUS 03/06 [facility] Outpatient Encounter [id number] [id number] DWAYNE HERNANDEZ A 03/06 [facility] Outpatient Encounter [id number] [id number] 03/29 [facility] HC PRO PHONE CALL 5-10 MIN [id number] [id number] Diagnos is: ICD-10- CM R26.2 Difficu lty in walking , not elsewhe re classif ied JULIOCESARSHAVON Giulia 04/30 [facility] Outpatient Encounter [id number] [id number] 05/08 [facility] OFFICE O/P EST LOW 20 MIN [id number] [id number] 5 Diagnos is: ICD-10- CM B35.1 Tinea unguium MICHELINE LOU 05/08 [facility] OFFICE O/P EST MOD 30 MIN [id number] [id number] 7 Diagnos is: ICD-10- CM M10.9 Gout, unspeci fied POOLEELVI Chowdhury M 05/08 [facility] Outpatient Encounter [id number] [id number] 05/08 [facility] OFFICE O/P EST LOW 20 MIN [id number] [id number] Diagnos is: ICD-10- CM I10 Essenti al (primar y) hyperte nsion Alicia ESTES L 05/10 [facility] Outpatient Encounter [id number] [id number] 5 Diagnos is: ICD-10- CM 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 TRISTIAN Villalobos 05/15 [facility] OFF/OP CNSLTJ NEW/EST LOW 30 [id number] [id number] Diagnos is: ICD-10- CM 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 TALHAI AN K 05/16 [facility] OFFICE O/P EST MOD 30 MIN [id number] [id number] 4 Diagnos is: ICD-10- CM E11.22 Type 2 diabete s mellitu s w diabeti c chronic kidney disease BEA PENA 05/24 [facility] Outpatient Encounter [id number] [id number] 08/07 [facility] OFFICE O/P EST LOW 20 MIN [id number] [id number] Diagnos is: ICD-10- CM B35.1 Tinea unguium MICHELINE LOU 08/07 [facility] Outpatient Encounter [id number] [id number] 08/14 [facility] OFFICE O/P EST HI 40 MIN 42851-9.65 [id number] 7 Diagnos is: ICD-10- CM M10.9 Gout, unspeci fied ELVI POOLE M 09/10 [facility] Outpatient Encounter [id number] [id number] 3 11/06 [facility] OFFICE O/P EST LOW 20 MIN [id number] [id number] Diagnos is: ICD-10- CM I10 Essenti al (primar y) hyperte nsion Alicia ESTES KEYA L 11/06 [facility] Outpatient Encounter [id number] Alicia ESTES KEYA L 11/07 [facility] HC PRO PHONE CALL 11-20 MIN [id number] [id number] 1 Diagnos is: ICD-10- CM I10 Essenti al (primar y) hyperte elaine JUAN MANUEL COCHRAN P 11/07 [facility] Outpatient Encounter [id number] [id number] 11/12 [facility] Outpatient Encounter [id number] [id number] JUAN MANUEL COCHRAN P 11/12 [facility] HC PRO PHONE CALL 21-30 MIN 17778-6.65 [id number] 5 Diagnos is: ICD-10- CM I10 Essenti al (primar y) hyperte elaine JUAN MANUEL COCHRAN P 11/12 [facility] Outpatient Encounter [id number] [id number] 4 11/12 [facility] HC PRO PHONE CALL 5-10 MIN [id number] [id number] 4 Diagnos is: ICD-10- CM I10 Essenti al (primar y) hyperte elaine JUAN MANUEL COCHRAN P 11/18 [facility] Outpatient Encounter [id number] [id number] 12/05 [facility] [place] [id number] [id number] Diagnos is: ICD-10- CM E66.01 Morbid (severe ) obesity due to excess calorie s ZOILAREJISANDRO Peñaloza Edwar 12/10 [facility] OFFICE O/P EST MOD 30 MIN [id number] [id number] 3 Diagnos is: ICD-10- CM M10.9 Gout, unspeci juan GEEANDYves CHOI 12/23 [facility] OFFICE O/P EST MOD 30 MIN [id number] [id number] 3 Diagnos is: ICD-10- CM I10 Essenti al (primar y) hyperte JUAN MANUEL Sparrow 12/30 [facility] HC PRO PHONE CALL 11-20 MIN [id number] [id number] Diagnos is: ICD-10- CM I10 Essenti al (primar y) hyperte JUAN MANUEL Sparrow P 01/01 [facility] Outpatient Encounter [id number] [id number] 01/06 [facility] OFFICE O/P EST LOW 20 MIN [id number] [id number] Diagnos is: ICD-10- CM I10 Essenti al (primar y) hyperte Alicia Liz 01/23 [facility] OFFICE O/P EST MOD 30 MIN [id number] [id number] Diagnos is: ICD-10- CM I10 Essenti al (primar y) hyperte JUAN MANUEL Sparrow P 01/28 [facility] Outpatient Encounter [id number] [id number] 01/28 [facility] HC PRO PHONE CALL 11-20 MIN [id number] [id number] 7 Diagnos is: ICD-10- CM I10 Essenti al (primar y) hyperte elaine JUAN MANUEL COCHRAN P 01/31 [facility] QNHP OL DIG ASSMT&MGMT 5-10 [id number] [id number] 3 Diagnos is: ICD-10- CM M10.9 Gout, unspeci fiKVNG Cabrera P 02/05 [facility] HC PRO PHONE CALL 5-10 MIN [id number] [id number] 1 Diagnos is: ICD-10- CM I10 Essenti al (primar y) hyperte elaine JUAN MANUEL COCHRAN P 02/12 [facility] OFFICE O/P EST LOW 20 MIN [id number] [id number] 2 Diagnos is: ICD-10- CM H25.13 Age-rel ated nuclear catarac t, bilater al ELYSE RAHMAN TTHEW C 02/17 [facility] Outpatient Encounter [id number] [id number] 1 02/17 [facility] MTMS BY PHARM BRAND DIRECTOR 15 MIN [id number] [id number] Diagnos is: ICD-10- CM E78.5 Hyperli pidemia , unspeci Bigg Hawthorne B 02/19 [facility] Outpatient Encounter [id number] [id number] 02/23 [facility] Outpatient Encounter [id number] [id number] 02/23 [facility] Outpatient Encounter [id number] [id number] 02/26 [facility] OFFICE O/P EST MOD 30 MIN [id number] [id number] Diagnos is: ICD-10- CM I10 Essenti al (primar y) hyperte elaine COCHRANJUAN MANUEL P 02/26 [facility] MTMS BY PHARM EST 15 MIN [id number] [id number] Diagnos is: ICD-10- CM E78.5 Hyperli pidemia , unspeci fiBigg Helms 03/06 [facility] HC PRO PHONE CALL 5-10 MIN [id number] [id number] Diagnos is: ICD-10- CM I10 Essenti al (primar y) hyperte elaine COCHRANJUAN MANUEL P 03/11 [facility] Outpatient Encounter [id number] [id number] 03/13 [facility] OFFICE O/P EST MOD 30 MIN [id number] [id number] 6 Diagnos is: ICD-10- CM I10 Essenti al (primar y) hyperte elaine COCHRAN JUAN MANUEL P 03/31 [facility] OFFICE O/P EST LOW 20 MIN [id number] [id number] Diagnos is: ICD-10- CM J20.9 Acute bronchi tis, unspeci DORIAN Bhat 04/03 [facility] PT EDUCATION NOC INDIVID [id number] [id number] Diagnos is: ICD-10- CM R09.81 Nasal congest thalia BERKOWITZ ARM MATTHEW 04/03 [facility] Outpatient Encounter [id number] [id number] Herlinda FREITAS A 04/05 [facility] EMERGENCY DEPT VISIT MOD MDM [id number] [id number] 5 Diagnos is: ICD-10- CM M19.90 Unspeci fied osteoar thritis , unspeci fied site Herlinda FREITASIN A 04/05 [facility] Outpatient Encounter [id number] [id number] Herlinda FREITAS A 04/05 [facility] Outpatient Encounter [id number] [id number] 04/08 [facility] Outpatient Encounter [id number] [id number] 04/14 [facility] OFF/OP EST JULY X REQ PHY/QHP [id number] [id number] 1 Diagnos is: ICD-10- CM I10 Essenti al (primar y) hyperte nsJOSELINE Zhu 04/15 [facility] Outpatient Encounter [id number] 04/16 [facility] MTMS BY PHARM EST 15 MIN [id number] [id number] Diagnos is: ICD-10- CM E78.5 Hyperli pidemia , unspeci fied Bgig CASILLAS B 04/16 [facility] Outpatient Encounter [id number] [id number] 04/18 [facility] N [facility] Outpatient Encounter [id number] [id number] 04/24 [facility] N [facility] Outpatient Encounter [id number] [id number] 04/25 [facility] N [facility] PH1 ASSMT&MGMT NQHP 5-10 52597-6.88 [id number] 5 Diagnos is: ICD-10- CM I10 Essenti al (primar y) hyperte JUAN MANUEL Sparrow P 04/25 [facility] N [facility] OFFICE O/P EST MOD 30 MIN [id number] [id number] Diagnos is: ICD-10- CM I10 Essenti al (primar y) hyperte JUAN MANUEL pSarrow P 05/02 [facility] Outpatient Encounter [id number] [id number] MIGUEL NICE 05/15 [facility] Social History Combined list of available smoking, tobacco, and other social history from Department of Defense and Veterans Affairs facilities. Social History Type Response Date Comment Sour e Tobacco smoking status [facility] VA-TOBACCO FORMER USER 05/10/2023 [facility] History of tobacco use ND-TOBACCO QUIT 1 5 YRS OR MORE 05/10/2023 [facility] History of tobacco use VA-TOBACCO NEVER USED 06/06/2022 [facility] History of tobacco use ND-TOBACCO QUIT 1 5 YRS OR MORE 03/15/2020 [facility] History of tobacco use VA-TOBACCO NEVER USED 01/29/2018 [facility] History of tobacco use LIFETIME NON-USER OF TOBACCO 10/12/2016 [facility] History of tobacco use LIFETIME NON-USER OF TOBACCO 08/02/2015 [facility] History of tobacco use LIFETIME NON-USER OF TOBACCO 10/22/2014 [facility] History of tobacco use QUIT TOBACCO >7 Y EARS AGO 01/08/2009 [facility] Plan of Care List of future care activities from Department of [facility] facilities. Additional future care activities may be listed in the Assessment and Plan section. Date/Time Care Activity Care Activity Detail Facili ty 05/23/2024 AMBULATORY - MEDICINE AMBULATORY - MEDICI NE [facility] 06/02/2024 AMBULATORY - MEDICINE AMBULATORY - MEDICI NE [facility] 06/26/2024 AMBULATORY - MEDICINE AMBULATORY - MEDICI [facility] 07/02/2024 AMBULATORY - NONE AMBULATORY - NONE [facility]
--- OUTSIDE RECORDS SUMMARY | 2024-05-19 05:39 | XMS_ITS | Referral Summary ---
Author Organization [facility] [employer] Address [address] [place] [address] Care Team Providers Care Nurse Administrator Name Role Phone Unavailable Primary Care Provider Unavailabl e Source Comments [facility],non-owned Affiliates and Associated Physician Practices is amultiple site organization consisting of ambulatory clinics and hospital sitesin [place], [place], [place] and [place]. This disclosure is being madepursuant to the Care Everywhere program and may not contain all information available regarding this patient. Last updated 17.[facility] [employer] Allergies Active Allergy Reactions Criticality Noted Date Comments Aspirin 09/17/2008 Medications * Be aware that medications may not be up to date on this document. Alwaysverify current medications with the patient. Medication Sig Dispensed Refills Start Date End Date Status amlodipine (NORVASC) 5 MG tablet Take 5 mg by mouth daily. Active simvastatin (ZOCOR) 20 MG tablet Take 20 mg by mouth at bedtime. Active indomethacin (INDOCIN) 25 MG capsule Take 25 mg by mouth 2 times daily. Active enalapril (VASOTEC) 20 MG tablet Take 20 mg by mouth 2 times daily. Active naproxen sodium (ANAPROX DS) 550 MG tablet Take 1 Tab by mouth 2 times daily as needed for Pain. 20 Tab 0 01/18/2014 Active oxyCODONE-acetaminop hen (PERCOCET) 7.5-325 MG tablet Take 1 tablet by mouth every 6 hours as needed for Pain 12 tablet 10/30/2019 Active methylPREDNISolone (MEDROL DOSEPAK) 4 MG tablet Take by mouth as directed Follow package insert dosing for six day supply. 21 tablet 11/19/2019 Active HYDROcodone-acetamin ophen (NORCO) 5-325 MG tablet Take 1 tablet by mouth every 6 hours as needed for Pain 12 tablet 11/19/2019 Active Active Problems Problem Noted Date Diagnosed Date Abdominal pain, right lower quadrant 03/23/2009 Abdominal pain, left lower quadrant 09/17/2008 Social History Tobacco Use Types Packs/Day Years Used Date Smoking Tobacco: Former Cigarettes 1 7 0 04/02/1972 - 04/02/1979 Alcohol Use Standard Drinks/Week Comments No 0 (1 standard drink = 0.6 oz pur e alcohol) Sex and Gender Information Value Date Recorded Sex Assigned at Not on file Gender Identity Not on file Sexual Orientation Not on file Last Filed Vital Signs Vital Sign Reading Time Taken Comments Blood Pressure 151/90 11/19/2019 6:45 PM CDT Pulse 77 11/19/2019 6:45 PM CDT Temperature 36.6 C (97.9 F) 11/19/2019 6:45 PM CDT Respiratory Rate 22 11/19/2019 6:45 PM CDT Oxygen Saturation 93% 11/19/2019 6:45 PM CDT Inhaled Oxygen Concentration - - Weight 190.5 kg (420 lb) 10/30/2019 1:27 PM CDT Height 180.3 cm (5' 11 ) 11/19/2019 1:25 PM CDT Body Mass Index 58.58 10/30/2019 12:55 PM CDT Plan of Treatment Not on file Advance Directives * Full Code (Latest Code Status on File) Date Activated Date Inactivated Comments 03/23/2009 11:18 PM 03/25/2009 3:25 AM
--- OUTSIDE RECORDS SUMMARY | 2024-05-19 05:39 | XMS_ITS | Encounter Summary ---
Author Name [facility] [place] [facility] [place] [facility] [facility] [place] Address [address] [place] [address] Care Team Providers Care Film Projector Operator Name Role Phone MARIA DEL ROSARIO ESTES [...] Name Patient's Relationship to Policy [place] [employer] [facility] (R) MEDICARE ADVANTAGE [facility] ([facility]) Apr 02, 2019 [id number] RODNEY [employer]IXEd[employer] PATIENT MEDICARE (WN) MEDICARE (M) PART A Feb 01, 2016 PART A [id number] [employer]NEY [employer] PATIENT MEDICARE (WNR) MEDICARE (M) PART B Feb 01, 2016 PART B [id number] R[employer]NEY [employer] PATIENT MEDICARE (WNR) MEDICARE (M) PART A Feb 01, 2016 PART A [id number] [phone] RODNEY MIX PATIENT MEDICARE (WNR) MEDICARE (M) PART B Feb 01, 2016 PART B [id number] RODNEY MIX PATIENT [facility] (WNR) MEDICARE ADVANTAGE [facility](W NR) Jan 01, 2024 [id number] RODNEY MIX PATIENT Selected Encounter This section includes the information on record at [place] for the Encounter. Date/Time Encounter Type Encounter Description Reason Provider Source Apr 15, 2024 12:00 PM OFF/OP EST JULY X REQ PHY/QHP PRIMARY CARE/MEDICINE ICD-10-CM I10 Essential (primary) hypertension VALENTINA ROBERTS IHGiulia Encounter Template Text not used by [place] Assessments - Encounter Diagnoses This section includes the primary and secondary diagnoses documented for the Encounter. Date/Time Primary/Secondary Diagnosis Diagnosis Name Provider Source Apr 22, 2024 10:50 AM PRIMARY Essential (primary) hypertension ABDULAZIZ [facility]WANT [facility] Apr 22, 2024 10:50 AM SECONDARY Encounter for immunization LYLE ROBERTS [facility] Plan of Treatment: Future Appointments (+ 6 months) and Future Tests (+/- 45 days) The Plan of Treatment section includes future care activities for the patient from all [place] [facility]. This section includes future appointments and future orders which are active, pending or scheduled. Future Appointments This section includes appointments that were scheduled to occur 6 months from the date of the Encounter, up to a maximum of 20 appointments. The data comes from all [place] treatment facilities. Appointment Date/Time Appointment Type Appointme nt Facility Name Apr 16, 2024 11:00 AM AMBULATORY - NONE [facility] Apr 16, 2024 01:30 PM AMBULATORY - NONE [facility] May 23, 2024 02:30 PM AMBULATORY - MEDICINE [facility] Jun 02, 2024 10:30 AM AMBULATORY - MEDICINE [facility] Jun 26, 2024 03:00 PM AMBULATORY - MEDICINE [facility] Jul 02, 2024 11:00 AM AMBULATORY - NONE [facility] Vital Signs: All taken on the encounter date This section contains inpatient and outpatient Vital Signs collected on the date of the Encounter. Date/Time Temperature Pulse Blood Pressure Respiratory Rate SP02 Pain Height Weight Body Mass Index Source Apr 15, 2024 01:16 PM 97.7 87 130/76 18 [address] [facility] Immunizations: All administered on the encounter date This section contains immunizations associated to the Encounter. Immunization Series Date Issued Reaction Comments INFLUENZA, HIGH-DOSE, TRIVALENT, PF Apr 15 Social History: Smoking Status (Most current) and [...] 06, 2022 10:00 AM VA-TOBACCO NEVER USED [facility] Tobacco Use History This section includes a history of the smoking, or tobacco-related health factors, that were collected on or before the date of the Encounter. The data comes from the [place] facility where the Encounter took place. Date/Time Smoking Status/Tobacco Use Comment F acility Mar 15, 2020 02:00 PM VA-TOBACCO FORMER USER [facility] Mar 15, 2020 02:00 PM VA-TOBACCO QUIT 15 YRS OR MORE [facility] Jan 29, 2018 10:49 AM VA-TOBACCO NEVER USED [facility] Oct 12, 2016 09:53 AM LIFETIME NON-USER OF TOBACCO [facility] August 02, 2015 10:40 AM LIFETIME NON-USER OF TOBACCO [facility] Oct 22, 2014 09:50 AM LIFETIME NON-USER OF TOBACCO [facility] Jan 08, 2009 08:24 AM QUIT TOBACCO >7 YEARS AGO [facility] Encounter Notes: All associated encounter notes This section contains the clinical notes associated to the Encounter. Date/Time Encounter Note(s) Provider Source Apr 15, 2024 03:59 PM NURSING NOTE: LOCAL TITLE: V15 PACT FACE TO FACE NOTE STL STANDARD TITLE: NURSING NOTE DATE OF NOTE: APR 15, 2024@15:59 ENTRY DATE: APR 15, 2024@15:59:22 AUTHOR: LYLE ROBERTS EXP COSIGNER: URGENCY: STATUS: COMPLETED Influenza Immunization - L,N,P,PH,U: Influenza, High-Dose, Trivalent, Preservative Free (Fluzone-Syringe) Administered: INFLUENZA, HIGH-DOSE, TRIVALENT, PF Date Administered: Apr 15, 2024 12:00 Series: Complete Battery Charger Tester: SANOFI PASTEUR Lot: [id number] Exp Date: Sep 29, [address] [facility]: [id number] Admin Route/Site: INTRAMUSCULAR/RIGHT DELTOID Dosage: 0.5mL Vaccine Information Statement(s): INFLUENZA(FLU) VACC(INACTIVATED OR RECOMBINANT)VIS Nov 05, 2020 ([place]) Order By: Policy Administered By: Lyle Roberts The Influenza Vaccine Information Statement (VIS) was reviewed with the patient/caregiver which lists the benefits and risks of the vaccine and the risks of not receiving the Influenza vaccine. The patient/caregiver denied any prior severe reaction to this vaccine or its components or a severe allergic reaction, such as anaphylaxis, to any vaccine or any injectable therapy. The patient/caregiver gave verbal consent to receive the vaccine. /buzz/ LYLE ROBERTS LPN LICENSED PRACTICAL NURSE Signed: 04/15/2024 16:03 LYLE RBOERTS [facility]
--- OUTSIDE RECORDS SUMMARY | 2024-05-19 05:39 | XMS_ITS | Clinical Summary ---
Author Organization [facility] [employer] Address [address] [place] [address] Care Team Providers Care Strategy Planning Consultant Name Role Phone Unavailable Primary Care Provider Unavailabl e Source Comments [facility],non-owned Affiliates and Associated Physician Practices is amultiple site organization consisting of ambulatory clinics and hospital sitesin [place], [place], [place] and [place]. This disclosure is being madepursuant to the Care Everywhere program and may not contain all information available regarding this patient. Last updated 17.[facility] [employer] Allergies Active Allergy Reactions Criticality Noted Date [...] 03/23/2009 Abdominal pain, left lower quadrant 09/17/2008 Family History Medical History Relation Name Comments Cancer Father lung cancer , d ied at age 77. Relation Name Status Comments Father Social History Tobacco Use Types Packs/Day Years [...] 10/30/2019 12:55 PM CDT Plan of Treatment Health Maintenance Due Date Last Done Comments COLOGUARD (AGES 45-75) - COL ON CA SCREENING 1950 COLON MONITORING 1951 COLONOSCOPY - COLON CA SCREENING 1950 CT COLONOGRAPHY - COLON CA SCREENING 1950 Colorectal Cancer Screening 1950 FIT - COLON CA SCREENING 1950 FLEX SIG - COLON CA SCREENING 1950 HEPATITIS C SCREENING 01/30/1969 DTAP/TDAP/TD VACCINES (1 - Tdap) 1970 PNEUMOCOCCAL VACCINE 50+ (1 of 1 - PCV) 2001 ZOSTER VACCINE (1 of 2) 2001 Respiratory Syncytial Virus (RSV) Vaccine Pt: or over 60 yrs (1 - Risk 60-74 years 1-dose series) 2011 AAA SCREENING 02/05/2016 COVID-19 VACCINE ( - 2023-2 5 season) 2023 INFLUENZA VACCINE (#1) 2023 DEPRESSION SCREENING 04/02/2024 HEPATITIS B VACCINE Aged Out No longe r eligible based on patient's age to complete this topic HIB VACCINE Aged Out No longer eligi ble based on patient's age to complete this topic HPV VACCINE Aged Out No longer eligi ble based on patient's age to complete this topic MENINGOCOCCAL (Group B) VACCINE Aged Out No longer eligible based on patient's age to complete this topic MENINGOCOCCAL VACCINE Aged Out No shahbaz summer eligible based on patient's age to complete this topic Advance Directives * Full Code (Latest Code Status on File) Date Activated Date Inactivated Comments 03/23/2009 11:18 PM 03/25/2009 3:25 AM
--- OUTSIDE RECORDS SUMMARY | 2024-05-19 05:39 | XMS_ITS | Encounter Summary ---
Author Name [facility] [facility] [place] Address [address] [place] [address] Care Team Providers Care Human Resources Benefits Coordinator Name Role Phone MARIA DEL ROSARIO ESTES [...] H[facility] (WNR) MEDICARE ADVANTAGE [facility] ([facility] Apr 02, 2019 [id number] [id number] R[facility]NEY MIX PATIENT MEDICARE (WNR) MEDICARE (M) PART A Feb 01, 2016 PART A [id number] [phone] RODNEY MIXEdwar PATIENT MEDICARE (WNR) MEDICARE (M) PART B Feb 01, 2016 PART B [id number] [facility] M[facility] PATIENT MEDICARE (WNR) MEDICARE (M) PART B Feb 01, 2016 PART B [id number] MARIA DEL ROSARIORODNEY JOSEEdwar PATIENT MEDICARE (WNR) MEDICARE (M) PART A Feb 01, 2016 PART A [id number] RODNEY MIX PATIENT [facility] (WNR) MEDICARE ADVANTAGE MCR(W NR) Jan 01, 2024 [id number] RODNEY MIX PATIENT Selected Encounter This section includes the information [facility] record at [facility] for the Encounter. Date/Time Encounter Type Encounter Description Reason Pro vider Source IHE Encounter Template Text not used by [facility]
--- OUTSIDE RECORDS SUMMARY | 2024-05-19 05:39 | XMS_ITS | Patient Health Summary ---
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 This disclosure is being madepursuant to the Care Everywhere program and may not contain all information available regarding this patient. Last updated 17.[facility] Allergies * Aspirin Medications * Be aware that medications may not be up to date on this document. Alwaysverify current medications with the patient. * amlodipine (NORVASC) 5 MG tablet Take 5 mg by mouth daily. * simvastatin (ZOCOR) 20 MG tablet Take 20 mg by mouth at bedtime. * indomethacin (INDOCIN) 25 MG capsule Take 25 mg by mouth 2 times daily. * enalapril (VASOTEC) 20 MG tablet Take 20 mg by mouth 2 times daily. * naproxen sodium (ANAPROX DS) 550 MG tablet(Started 01/18/2014) Take 1 Tab by mouth 2 times daily as needed for Pain. * oxyCODONE-acetaminophen (PERCOCET) 7.5-325 MG tablet(Started 10/30/2019) Take 1 tablet by mouth every 6 hours as needed for Pain * methylPREDNISolone (MEDROL DOSEPAK) 4 MG tablet(Started 11/19/2019) Take by mouth as directed Follow package insert dosing for six day supply. * HYDROcodone-acetaminophen (NORCO) 5-325 MG tablet(Started 11/19/2019) Take 1 tablet by mouth every 6 hours as needed for Pain Active Problems Problem Noted Date Diagnosed Date [...] Mass Index 58.58 10/30/2019 12:55 PM CDT Procedures * CARDIAC EKG ORDER(Performed 11/25/2019) * LACTIC ACID BLOOD(Performed 11/19/2019) * URIC ACID BLOOD(Performed 11/19/2019) * C-REACTIVE PROTEIN(Performed 11/19/2019) * ERYTHROCYTE SEDIMENTATION RATE(Performed 11/19/2019) * COMPREHENSIVE METABOLIC PANEL(Performed 11/19/2019) * CBC W AUTO DIFFERENTIAL(Performed 11/19/2019) * ED SPLINT APPLICATION(Performed 11/19/2019) Performed for Bursitis of right elbow, unspecified bursa * EKG 12-LEAD(Performed 11/19/2019) Performed for Bursitis of right elbow, unspecified bursa * XR SHOULDER LEFT 2VW OR MORE(Performed 10/30/2019) Performed for Fall down stairs, initial encounter * XR PELVIS 1 OR 2VW(Performed 10/30/2019) Performed for Fall down stairs, initial encounter * XR SHOULDER RIGHT 2VW OR MORE(Performed 10/30/2019) Performed for Fall down stairs, initial encounter * CT HEAD WO CONTRAST(Performed 10/30/2019) Performed for Fall down stairs, initial encounter * URINE MICROSCOPIC ONLY REFLEX TO CULTURE(Performed 08/15/2019) * URINALYSIS REFLEX MICROSCOPIC REFLEX CULTURE(Performed 08/15/2019) * CULTURE URINE(Performed 08/15/2019) * XR LUMBAR SPINE 2 OR 3VW(Performed 08/15/2019) Performed for Acute right-sided low back pain with right-sided sciatica * COMPREHENSIVE METABOLIC PANEL(Performed 01/18/2014) * CBC W AUTO DIFFERENTIAL(Performed 01/18/2014) * CT ABDOMEN PELVIS WO CONTRAST(Performed 01/18/2014) Performed for Left flank pain * URINALYSIS REFLEX MICROSCOPIC REFLEX CULTURE(Performed 03/24/2009) Performed for Abdominal Pain, Unspecified Site * BASIC METABOLIC PANEL (CALCIUM TOTAL)(Performed 03/24/2009) Performed for Abdominal Pain, Unspecified Site * CBC W AUTO DIFFERENTIAL(Performed 03/24/2009) Performed for Abdominal Pain, Unspecified Site * CT ABDOMEN PELVIS WO CONTRAST(Performed 03/23/2009) Performed for Abdominal Pain, Right Lower Quadrant * URINALYSIS REFLEX MICROSCOPIC REFLEX CULTURE(Performed 03/23/2009) Performed for Abdominal Pain, Unspecified Site * LIPASE BLOOD(Performed 03/23/2009) Performed for Abdominal Pain, Unspecified Site * AMYLASE BLOOD(Performed 03/23/2009) Performed for Abdominal Pain, Unspecified Site * COMPREHENSIVE METABOLIC PANEL(Performed 03/23/2009) Performed for Abdominal Pain, Unspecified Site * CBC W AUTO DIFFERENTIAL(Performed 03/23/2009) Performed for Abdominal Pain, Unspecified Site * CT ABDOMEN PELVIS W CONTRAST(Performed 09/17/2008) Performed for Abdominal pain, left lower quadrant * URINALYSIS REFLEX MICROSCOPIC REFLEX CULTURE(Performed 09/17/2008) Performed for Unspecified Intestinal Obstruction (HCC) * CULTURE URINE(Performed 09/17/2008) Performed for Unspecified Intestinal Obstruction (HCC) * LIPASE BLOOD(Performed 09/17/2008) Performed for Unspecified Intestinal Obstruction (HCC) * COMPREHENSIVE METABOLIC PANEL(Performed 09/17/2008) Performed for Unspecified Intestinal Obstruction (HCC) * CBC W AUTO DIFFERENTIAL(Performed 09/17/2008) Performed for Unspecified Intestinal Obstruction (HCC) Results * CARDIAC EKG ORDER (11/25/2019 3:48 PM CDT) Narrative 11/25/2019 3:48 PM CDT Ordered by an unspecified provider. Scanned Document CARDIAC SERVICES ORD ERABLES * LACTIC ACID BLOOD (11/19/2019 4:29 PM CDT) Lactic Acid 1.1 0.5 - 2.2 mmol/L 11/19/2019 4:44 PM CDT [facility] Blood BLOOD SPECIMEN / Unknown Venipuncture / Unknown 11/19/2019 4:29 PM CDT 11/19/2019 4:31 PM CDT Sj Jensen MD LAB - CHEMISTRY VARGHESE GRAY [facility] [address] [place] [address] * URIC ACID BLOOD (11/19/2019 3:07 PM CDT) Uric Acid 6.2 3.5 - 7.2 mg/dL 11/19/2019 4:18 PM CDT [facility] Blood BLOOD SPECIMEN / Unknown Venipuncture / Unknown 11/19/2019 3:07 PM CDT 11/19/2019 3:11 PM CDT Sj Jensen MD LAB - CHEMISTRY VARGHESE GRAY Performing Organization Address [facility]/ZIP Co de Phone Number [facility] [address] [place] [address] * (ABNORMAL) C-REACTIVE PROTEIN (11/19/2019 3:07 PM CDT) Pathologist [facility] [place] C-Reactive Protein 4.62(H) <=0.50 mg/dL 11/19/2019 3:36 PM CDT [facility] Blood BLOOD SPECIMEN / Unknown Venipuncture / Unknown 11/19/2019 3:07 PM CDT 11/19/2019 3:11 PM CDT Sj Jensen MD LAB - CHEMISTRY VARGHESE GRAY [facility] [address] [place] [address] * (ABNORMAL) ERYTHROCYTE SEDIMENTATION RATE (11/19/2019 3:07 PM CDT) Pathologist [facility] [place] Erythrocyte Sedimentation Rate Automated 64(H) 0 - 20 MM/HR 11/19/2019 3:24 PM CDT [facility] Blood BLOOD SPECIMEN / Unknown Venipuncture / Unknown 11/19/2019 3:07 PM CDT 11/19/2019 3:11 PM CDT Sj Jensen MD LAB - HEMATOLOGY ORD ERABLES [facility] [address] [place] [address] * CBC W AUTO DIFFERENTIAL (11/19/2019 3:07 PM CDT) Only the most recent of5 resultswithin the time period is included. Pathologist [facility] [place] WBC 8.9 4.4 - 10.7 x10E9/L 11/19/2019 3:14 PM CDT [facility] WBC Corrected 11/19/2019 3:14 PM CDT [facility] RBC 4.31 3.80 - 5.40 x10E12/L 11/19/2019 3:14 PM CDT [facility] Hemoglobin 13.0 12.0 - 17.6 gm/dL 11/19/2019 3:14 PM CDT [facility] Hematocrit 40.9 35.2 - 51.7 % 11/19/2019 3:14 PM CDT [facility] MCV 94.9 80.7 - 98.3 fl 11/19/2019 3:14 PM CDT [facility] MCH 30.2 26.7 - 34.0 pg 11/19/2019 3:14 PM CDT [facility] MCHC 31.8 30.8 - 35.9 gm/dL 11/19/2019 3:14 PM CDT [facility] Platelet Count 256 153 - 416 x10E9/L 11/19/2019 3:14 PM CDT [facility] RDW-CV 13.0 12.1 - 14.9 % 11/19/2019 3:14 PM CDT [facility] MPV 9.7 9.4 - 12.9 fl 11/19/2019 3:14 PM CDT [facility] Neutrophils % 65.5 44.0 - 73.0 % 11/19/2019 3:14 PM CDT [facility] Lymphocytes % 20.6 20.0 - 43.0 % 11/19/2019 3:14 PM CDT [facility] Monocytes % 10.8 5.0 - 13.0 % 11/19/2019 3:14 PM CDT [facility] Eosinophils % 2.1 0.0 - 6.0 % 11/19/2019 3:14 PM CDT [facility] Basophils % 0.7 0.0 - 2.0 % 11/19/2019 3:14 PM CDT [facility] Immature Granulocytes 0.3 0 - 1 % 11/19/2019 3:14 PM CDT [facility] Neutrophil Absolute 5.83 2.01 - 7.14 x10E9/L 11/19/2019 3:14 PM CDT [facility] Lymphocytes Absolute 1.83 1.07 - 3.94 x10E9/L 11/19/2019 3:14 PM CDT [facility] Monocytes Absolute 0.96 0.26 - 1.07 x10E9/L 11/19/2019 3:14 PM CDT [facility] Eosinophils Absolute 0.19 0 - 0.47 x10E9/L 11/19/2019 3:14 PM CDT [facility] Basophils Absolute 0.06 0 - 0.08 x10E9/L 11/19/2019 3:14 PM CDT [facility] Immature Granulocytes Absolute 0.03 0.00 - 0.06 x10E9/L 11/19/2019 3:14 PM CDT [facility] nRBC Auto 0 /100 WBC 11/19/2019 3:14 PM CDT [facility] Blood BLOOD SPECIMEN / Unknown Venipuncture / Unknown 11/19/2019 3:07 PM CDT 11/19/2019 3:11 PM CDT Sj Jensen MD LAB - HEMATOLOGY ORD ERABLES [facility] [address] [place] [address] * (ABNORMAL) COMPREHENSIVE METABOLIC PANEL (11/19/2019 3:07 PM CDT) Only the most recent of4 resultswithin the time period is included. Glucose 110(H) 70 - 105 mg/dL 11/19/2019 3:36 PM [facility] Sodium 145 136 - 145 mmol/L 11/19/2019 3:36 PM [facility] Potassium 4.2 3.5 - 5.1 mmol/L 11/19/2019 3:36 PM [facility] Chloride 109(H) 98 - 107 mmol/L 11/19/2019 3:36 PM [facility] CO2 23 23 - 31 mmol/L 11/19/2019 3:36 PM [facility] Calcium 9.6 8.4 - 10.4 mg/dL 11/19/2019 3:36 PM [facility] Anion Gap 13 8 - 16 mmol/L 11/19/2019 3:36 PM [facility] BUN 20 8.4 - 25.7 mg/dL 11/19/2019 3:36 PM [facility] Creatinine 1.29(H) 0.72 - 1.25 mg/dL 11/19/2019 3:36 PM [facility] Alkaline Phosphatase 105 40 - 150 U/L 11/19/2019 3:36 PM [facility] ALT 14 0 - 61 U/L 11/19/2019 3:36 PM [facility] AST 16 5 - 34 U/L 11/19/2019 3:36 PM [facility] Protein Total 7.7 6.4 - 8.3 gm/dL 11/19/2019 3:36 PM [facility] Albumin 4.0 3.2 - 4.6 gm/dL 11/19/2019 3:36 PM [facility] Bilirubin Total 0.7 0.2 - 1.2 mg/dL 11/19/2019 3:36 PM [facility] eGFR by MDRD 55(L) >60 mL/min/1.7 3m2 11/19/2019 3:36 PM [facility] eGFR by MDRD >60 >60 mL/min/1.7 3m2 11/19/2019 3:36 PM [facility] Blood BLOOD SPECIMEN / Unknown Venipuncture / Unknown 11/19/2019 3:07 PM CDT 11/19/2019 3:11 PM CDT Sj Jensen MD LAB - CHEMISTRY VARGHESE GRAY Performing Organization Address City/[facility]/ZIP Co de Phone Number [facility] [address] [place] [address] * Splint Application (11/19/2019 2:43 PM CDT) Narrative Sj Jensen MD - 11/19/2019 2:43 PM CDT Sj Jensen MD 11/19/2019 5:33 PM Splint Application Date/Time: 11/19/2019 5:27 PM Performed by: Sj Jensen MD Authorized by: Sj Jensen MD Consent: Consent obtained: Verbal Consent given by: Patient Risks discussed: Discoloration, numbness, pain and swelling Alternatives discussed: No treatment Pre-procedure details: Sensation: Normal Procedure details: Laterality: Right Location: Elbow Elbow: R elbow Strapping: yes Supplies: Sling and elastic bandage Post-procedure details: Pain: Improved Sensation: Normal Patient tolerance of procedure: Tolerated well, no immediate complications Comments: Santos wrap and sling placed on R elbow Sj Jensen MD PROCEDURE/MINOR SURG ICAL ORDERABLES * EKG 12-LEAD (11/19/2019 1:36 PM CDT) Ventricular Rate 86 BPM [facility] Atrial Rate 86 BPM [facility] P-R Interval 184 ms [facility] QRS Duration ms 106 ms [facility] Q-T Interval ms 392 ms [facility] QTC Calculation (Bezet) 469 ms [facility] Calculated P [place] 36 degrees [facility] Calculated R [place] 17 degrees [facility] Calculated T [place] 42 degrees [facility] Interpretation EKG Normal sinus rhythm Normal ECG Confirmed by STEPHANIE SAMUELS, SUNDAR ([id number]) on 11/20/2019 10:47:54 AM [facility] 11/19/2019 1:36 PM CDT 11/20/2019 10:47 AM CDT Sj Jensen MD ECG ORDERABLES Performing Organization Address [facility] Co de Phone Number [facility] * XR SHOULDER LEFT 2VW OR MORE (10/30/2019 2:29 PM CDT) Anatomical Region Laterality Modality Upper Extremity Radiographic Chrissie ging 10/30/2019 2:53 PM CDT Impressions 10/30/2019 2:54 PM CDT Degenerative changes about the left shoulder. No acute findings. *Reading Radiologist: Zev Peters on 10/30/2019 at 2:54 PM Narrative 10/30/2019 2:54 PM CDT Left shoulder, 2 or more views HISTORY: Pain after falling down a flight of stairs. FINDINGS: Internal and external rotation views were obtained along with a scapular Y view. There is no fracture or dislocation. There is narrowing of the acromiohumeral space which likely reflects a chronic rotator cuff tear. There is AC joint spurring and spurring along the greater tuberosity of the proximal left humerus. Procedure Note Zev Peters MD - 10/30/2019 Left shoulder, 2 or more views HISTORY: Pain after falling down a flight of stairs. FINDINGS: Internal and external rotation views were obtained along with a scapular Y view. There is no fracture or dislocation. There is narrowing of the acromiohumeral space which likely reflects a chronic rotator cuff tear. There is AC joint spurring and spurring along the greater tuberosity of the proximal left humerus. IMPRESSION Degenerative changes about the left shoulder. No acute findings. *Reading Radiologist: Zev Peters on 10/30/2019 at 2:54 PM Félix Tolbert DO DIAGNOSTIC IMAGING ORDERABLES * XR PELVIS 1 OR 2VW (10/30/2019 2:29 PM CDT) Anatomical Region Laterality Modality Pelvis Radiographic Chrissie ging 10/30/2019 2:55 PM CDT Impressions 10/30/2019 2:56 PM CDT No evidence of fracture. *Reading Radiologist: Zev Peters on 10/30/2019 at 2:56 PM Narrative 10/30/2019 2:56 PM CDT Pelvis HISTORY: Pain after a fall. FINDINGS: Views of the pelvis are limited by patient obesity. There is no obvious fracture. The proximal femora are intact. There are moderate degenerative changes about each hip. The SI joints appear intact. Procedure Note Zev Peters MD - 10/30/2019 Pelvis HISTORY: Pain after a fall. FINDINGS: Views of the pelvis are limited by patient obesity. There is no obvious fracture. The proximal femora are intact. There are moderate degenerative changes about each hip. The SI joints appear intact. IMPRESSION No evidence of fracture. *Reading Radiologist: Zev Peters on 10/30/2019 at 2:56 PM Félix Tolbert DO DIAGNOSTIC IMAGING ORDERABLES * XR SHOULDER RIGHT 2VW OR MORE (10/30/2019 2:28 PM CDT) Anatomical Region Laterality Modality Upper Extremity Radiographic Chrissie ging 10/30/2019 2:54 PM CDT Impressions 10/30/2019 2:55 PM CDT Fairly advanced degenerative changes about the right shoulder. No acute findings. *Reading Radiologist: Zev Peters on 10/30/2019 at 2:55 PM Narrative 10/30/2019 2:55 PM CDT Right shoulder, 2 or more views HISTORY: Pain after falling down a flight of stairs. FINDINGS: Internal and external rotation views were obtained along with a scapular Y view. There is no fracture or dislocation. There is narrowing of the acromiohumeral space. There is AC joint spurring and spurring of the glenohumeral joint and greater tuberosity of the proximal right humerus. Periarticular soft tissues appear unremarkable radiographically. Procedure Note Zev Peters MD - 10/30/2019 Right shoulder, 2 or more views HISTORY: Pain after falling down a flight of stairs. FINDINGS: Internal and external rotation views were obtained along with a scapular Y view. There is no fracture or dislocation. There is narrowing of the acromiohumeral space. There is AC joint spurring and spurring of the glenohumeral joint and greater tuberosity of the proximal right humerus. Periarticular soft tissues appear unremarkable radiographically. IMPRESSION Fairly advanced degenerative changes about the right shoulder. No acute findings. *Reading Radiologist: Zev Peters on 10/30/2019 at 2:55 PM Félix Tolbert DO DIAGNOSTIC IMAGING ORDERABLES * CT HEAD NON CONTRAST (10/30/2019 1:22 PM CDT) Anatomical Region Laterality Modality Head Computed Tomogra phy 10/30/2019 1:25 PM CDT Impressions 10/30/2019 1:27 PM CDT No acute intracranial findings on non- contrast CT of the head. No acute intracranial hemorrhage. *Reading Radiologist: Aaron Salas on 10/30/2019 at 1:27 PM Narrative 10/30/2019 1:[address] BRAIN WITHOUT CONTRAST. COMPARISON: No relevant comparison. HISTORY: Fall 2010 feet down stairs with left-sided head trauma, anticoagulation.. TECHNIQUE: All CT scans at [facility] are performed using dose optimization techniques as appropriate to include AEC and Adjustment of mA and/or kV according to patient size, exam type and indication ([facility] CQMS #436). Standard noncontrast CT scan of the brain. As a standard caveat and not specifically recommended based on the current examination, if patient is clinically able and the results would change clinical management, MRI with diffusion offers increased sensitivity for acute infarction, certain types of hemorrhage (e.g. SANTOS) and potentially mass. FINDINGS: Within the [id number], ocular globes are intact and bony orbits are without acute osseous abnormality given this imaging technique. Posterior fossa obscured by streak artifact from enlarged body habitus The skull is intact without abnormal lesion. Paranasal sinuses and mastoid air cells are predominantly clear. No noncontrast CT evidence of mass, intracranial hemorrhage, extra-axial fluid collection, hydrocephalus or acute large territorial infarction. Procedure Note Ant Salas MD - 10/30/2019 CT BRAIN WITHOUT CONTRAST. COMPARISON: No relevant comparison. HISTORY: Fall 2010 feet down stairs with left-sided head trauma, anticoagulation.. TECHNIQUE: All CT scans at [facility] are performed using dose optimization techniques as appropriate to include AEC and Adjustment of mA and/or kV according to patient size, exam type and indication ([facility] CQMS #436). Standard noncontrast CT scan of the brain. As a standard caveat and not specifically recommended based on the current examination, if patient is clinically able and the results would change clinical management, MRI with diffusion offers increased sensitivity for acute infarction, certain types of hemorrhage (e.g. SANTOS) and potentially mass. FINDINGS: Within the [id number], ocular globes are intact and bony orbits are without acute osseous abnormality given this imaging technique. Posterior fossa obscured by streak artifact from enlarged body habitus The skull is intact without abnormal lesion. Paranasal sinuses and mastoid air cells are predominantly clear. No noncontrast CT evidence of mass, intracranial hemorrhage, extra-axial fluid collection, hydrocephalus or acute large territorial infarction. IMPRESSION No acute intracranial findings on non- contrast CT of the head. No acute intracranial hemorrhage. *Reading Radiologist: Aaron Salas on 10/30/2019 at 1:27 PM Félix Tolbert DO CT ORDERABLES * (ABNORMAL) URINE MICROSCOPIC ONLY REFLEX TO CULTURE (08/15/2019 3:34 PM CDT) Reflex Status Culture to follow 08/15/2019 4:06 PM CDT [facility] RBC UA 6-10(A) None Seen, 0-2, 3-5 # /hpf 08/15/2019 4:06 PM CDT [facility] WBC UA 6-10(A) None Seen, 0-5 # /hpf 08/15/2019 4:06 PM CDT [facility] Bacteria UA None Seen None Seen 08/15/2019 4:06 PM CDT [facility] Squamous Epithelial Cells 0-2 None Seen, 0-2, 3-5 /hpf 08/15/2019 4:06 PM CDT [facility] Mucus UA 1+ /LPF 08/15/2019 4:06 PM CDT [facility] Urine URINE SPECIMEN OBTAINED BY CLEAN CATCH PROCEDURE / Unknown Collection / Unknown 08/15/2019 3:34 PM CDT 08/15/2019 3:35 PM CDT Narrative [facility] - 08/15/2019 4:06 PM CDT Maria Isabel Lopez PA-C LAB - URINALYSIS ORD ERABLES [facility] [address] [place] [address] * (ABNORMAL) URINALYSIS REFLEX MICROSCOPIC REFLEX CULTURE (08/15/2019 3:34 PM CDT) Only the most recent of4 resultswithin the time period is included. Color UA Yellow Straw, Yellow 08/15/2019 3:40 PM CDT [facility] Clarity UA Clear Clear 08/15/2019 3:40 PM CDT [facility] Glucose UA Negative Negative 08/15/2019 3:40 PM CDT [facility] Bilirubin UA Negative Negative 08/15/2019 3:40 PM CDT [facility] Ketone UA Negative Negative 08/15/2019 3:40 PM CDT [facility] Specific Flippin UA 1.020 1.005 - 1.030 08/15/2019 3:40 PM CDT [facility] Blood UA Negative Negative 08/15/2019 3:40 PM [facility] pH UA 5.0 5.0 - 8.0 pH 08/15/2019 3:40 PM CDT [facility] Protein UA 2+(A) Negative 08/15/2019 3:40 PM CDT [facility] Urobilinogen UA Negative Negative mg/dL 08/15/2019 3:40 PM CDT [facility] Nitrite UA Negative Negative 08/15/2019 3:40 PM CDT [facility] Leukocyte UA Trace(A) Negative 08/15/2019 3:40 PM [facility] Urine Microscopy Urine microscopy to follow 08/15/2019 3:40 PM [facility] Reflex Status Culture to follow 08/15/2019 3:40 PM [facility] Urine URINE SPECIMEN OBTAINED BY CLEAN CATCH PROCEDURE / Unknown Collection / Unknown 08/15/2019 3:34 PM CDT 08/15/2019 3:35 PM CDT [facility] - 08/15/2019 3:40 PM CDT Ascorbic Acid can cause false negative urine strip tests for blood, glucose, nitrite, and bilirubin. Maria Isabel Lopez PA-C LAB - URINALYSIS ORD ERABLES [facility] [address] [place] [address] * CULTURE URINE (08/15/2019 3:34 PM CDT) Only the most recent of2 resultswithin the time period is included. Culture Urine <10,000 CFU/mL urogenital chun LUCILA 08/17/2019 7:27 AM CDT [facility] Urine URINE SPECIMEN OBTAINED BY CLEAN CATCH PROCEDURE / Unknown Collection / Unknown 08/15/2019 3:34 PM CDT 08/15/2019 3:35 PM CDT Maria Isabel Lopez PA-C LAB - MICROBIOLOGY O RDERABLES [facility] [address] [place] [address], [facility] [phone] * XR LUMBAR SPINE 2 OR 3 VW (08/15/2019 2:16 PM CDT) Anatomical Region Laterality Modality Spine Radiographic Chrissie ging 08/15/2019 2:17 PM CDT Impressions 08/15/2019 2:21 PM CDT Degenerative disc disease at L4-5 with secondary degenerative change. Slight loss of height along the infraendplate of L4 more likely old but not appropriately imaged on the previous abdominal CT for confirmation *Reading Radiologist: Santiago Nguyễn on 08/15/2019 at 2:21 PM Narrative 08/15/2019 2:21 PM CDT Lumbar spine Three views of the lumbar spine were obtained Indication: Back pain. Comparison: CT abdomen 2013 There is normal alignment of the vertebral bodies. There is slight loss of height of L4 but much more likely to be old with secondary degenerative change at L4-5. Detail is somewhat limited due to large body habitus The remainder of the disc spaces appear relatively normal The sacroiliac joints appear normal. Procedure Note Santiago Nguyễn MD - 08/15/2019 Lumbar spine Three views of the lumbar spine were obtained Indication: Back pain. Comparison: CT abdomen 2013 There is normal alignment of the vertebral bodies. There is slight loss of height of L4 but much more likely to be old with secondary degenerative change at L4-5. Detail is somewhat limited due to large body habitus The remainder of the disc spaces appear relatively normal The sacroiliac joints appear normal. IMPRESSION Degenerative disc disease at L4-5 with secondary degenerative change. Slight loss of height along the infraendplate of L4 more likely old but not appropriately imaged on the previous abdominal CT for confirmation *Reading Radiologist: Santiago Nguyễn on 08/15/2019 at 2:21 PM Rupesh Johnson MD DIAGNOSTIC IMAGING O RDERABLES * CT RENAL STONE PROTOCOL (01/18/2014 2:34 PM CDT) Only the most recent of2 resultswithin the time period is included. Anatomical Region Laterality Modality Abdomen, Pelvis Computed Tomogra phy 01/18/2014 2:37 PM CDT Impressions 01/18/2014 2:41 PM CDT No acute abdominopelvic process. No explanation for patient's symptoms. Bilateral nonobstructing renal calculi as above. No ureteric calculi. Gallstones. Narrative 01/18/2014 2:[address] abdomen and pelvis without contrast COMPARISON: March 23, 2009 HISTORY: Abdominal pain, unspecified site. TECHNIQUE: Helical CT acquisition of abdomen and pelvis without intravenous iodinated contrast. Oral contrast was also not administered. Coronal reconstructions were obtained. FINDINGS: Lung bases are clear. No hydronephrosis. There are nonobstructing bilateral renal calculi measuring approximately 1 cm each. Gallstones are seen. Solid organs are unremarkable. No free fluid or free air. No bowel obstruction. No diverticulitis. The appendix is not seen, there are no mesenteric inflammatory changes. Procedure Note Salvador Nevarez MD - 01/18/2014 CT abdomen and pelvis without contrast COMPARISON: March 23, 2009 HISTORY: Abdominal pain, unspecified site. TECHNIQUE: Helical CT acquisition of abdomen and pelvis without intravenous iodinated contrast. Oral contrast was also not administered. Coronal reconstructions were obtained. FINDINGS: Lung bases are clear. No hydronephrosis. There are nonobstructing bilateral renal calculi measuring approximately 1 cm each. Gallstones are seen. Solid organs are unremarkable. No free fluid or free air. No bowel obstruction. No diverticulitis. The appendix is not seen, there are no mesenteric inflammatory changes. IMPRESSION No acute abdominopelvic process. No explanation for patient's symptoms. Bilateral nonobstructing renal calculi as above. No ureteric calculi. Gallstones. Bull Ingram MD CT ORDERABLES * (ABNORMAL) BASIC METABOLIC PANEL (CALCIUM TOTAL) (03/24/2009 5:50 AM AGED OR DISABLED CARER) Glucose 98. 75 - 110 mg/dL [facility] BUN 21. 9 - 21 mg/dL [facility] Creatinine 2.11(H) 0.66 - 1.25 mg/dL [facility] BUN/Creatinine Ratio 9.9 [facility] Sodium 140. 137 - 145 mmol/L [facility] Potassium 4.0 3.6 - 5.0 mmol/L [facility] Chloride 106. 98 - 107 mmol/L [facility] CO2 24. 22 - 31 mmol/L [facility] Anion Gap 10. [facility] Calcium 8.7(DE) 8.4 - 11.5 mg/dL [facility] eGFR by MDRD 39.2(L) SEE BELOW ml/min/1.[address] [facility] Comment: >60 Normal Chronic Disease <60 Renal Failure <15 BLOOD SPECIMEN / Unknown 03/24/2009 5:50 AM AGED OR DISABLED CARER 03/24/2009 6:25 AM AGED OR DISABLED CARER Joellen Finch MD LAB - CHEMISTRY ORDGiulia GRAY Performing Organization Address [facility]/ZIP Co de Phone Number [facility] [address] [place] [address] * LIPASE BLOOD (03/23/2009 6:25 PM AGED OR DISABLED CARER) Only the most recent of2 resultswithin the time period is included. Lipase 64. 23 - 208 U/L [facility] BLOOD SPECIMEN / Unknown 03/23/2009 6:25 PM AGED OR DISABLED CARER 03/23/2009 6:29 PM AGED OR DISABLED CARER Andriy Santana MD LAB - CHEMISTRY ORDGiulia GRAY Performing Organization Address [facility] Co de Phone Number [facility] [address] [place] [address] * AMYLASE BLOOD (03/23/2009 6:25 PM AGED OR DISABLED CARER) Amylase 38. 30 - 110 U/L [facility] BLOOD SPECIMEN / Unknown 03/23/2009 6:25 PM AGED OR DISABLED CARER 03/23/2009 6:29 PM AGED OR DISABLED CARER Andriy Santana MD LAB - CHEMISTRY VARGHESE Lu Organization Address City/State/ZIP Co de Phone Number [facility] [address] [place] [address] * CT ABDOMEN AND PELVIS WITH IV CONTRAST (09/17/2008 9:50 PM CDT) Anatomical Region Laterality Modality Abdomen, Pelvis Computed Tomogra phy 09/18/2008 7:37 AM CDT Impressions 09/21/2008 6:22 PM CDT -- The following data has been recovered by the [email or web address] -- THE PATIENT IS MORBIDLY OBESE. CHOLELITHIASIS IS NOTED. NONOBSTRUCTING SMALL CALYCEAL CALCULI ARE NOTED IN BOTH KIDNEYS. THERE IS 7 MM OBSTRUCTING PROXIMAL LEFT URETERAL STONE ALSO NOTED. SMALL VENTRAL HERNIA CONTAINING FAT. CT SCAN OF THE PELVIS Spiral scans of the pelvis were obtained without IV or oral contrast material. The appendix is normal. No inflammatory changes are appreciated. No acute pelvic process is noted. IMPRESSION: SMALL VENTRAL HERNIA CONTAINING FAT IS NOTED IN THE MIDLINE. NO ACUTE PELVIC PROCESS IS SEEN. Narrative 09/21/2008 6:22 PM CDT -- The following data has been recovered by the [employer] system [email or web address] -- CT SCAN OF THE ABDOMEN AND PELVIS HISTORY: Left lower quadrant pain. Spiral scans of the abdomen and pelvis were obtained in noncontrast fashion as a stone protocol. Neither intravenous nor oral contrast material was administered during the course of the study. Review of the images demonstrates that the patient is morbidly obese. The liver and spleen are normal. A small nodular density at the upper pole of the spleen likely represents a small splenule. There are small nonobstructing calyceal calculi noted in both kidneys. There is an obstructing calculus in the proximal left ureter measuring approximately 7 mm in dimension. There is mild dilatation of the pelvicalyceal collecting system on the left noted as a result of this obstructing proximal left ureteral stone. Cholelithiasis is also noted. The pancreas is normal. There is a small ventral hernia seen containing fat. Transcriptions Document, Scanned - 09/17/2008 12:00 AM CDT Maria Isabel Salazar PA-C CT ORDERABLES
--- OUTSIDE RECORDS SUMMARY | 2024-05-19 07:15 | XMS_ITS | Referral Summary ---
Author Organization [facility] [employer] Address [address] [place] [address] Care Team Providers Care Electric Car Operator Name Role Phone Unavailable Primary Care Provider Unavailabl e Source Comments [facility],non-owned Affiliates and Associated Physician Practices is amultiple site organization consisting of ambulatory clinics and hospital sitesin [place], [place], [place] and [place]. This disclosure is being madepursuant to the Care Everywhere program and may not contain all information available regarding this patient. Last updated 17.[facility] [employer] Allergies Active Allergy Reactions Criticality Noted Date [...]
--- OUTSIDE RECORDS SUMMARY | 2024-05-19 07:15 | XMS_ITS | Patient Health Summary ---
Author Organization [facility] [employer] Address [address] [place] [address] Care Team Providers Care Office Executive Name Role Phone Unavailable Primary Care Provider Unavailabl e Note from [facility] [employer] [facility],non-owned Affiliates and Associated Physician Practices is amultiple site organization consisting of ambulatory clinics and hospital sitesin [place], [place], [place] and [place]. This disclosure is being madepursuant to the Care Everywhere program and may not contain all information available regarding this patient. Last updated 17.[facility] [employer] Allergies * Aspirin Medications * Be aware [...] - 2.2 mmol/L 11/19/2019 4:44 PM CDT [facility] Blood BLOOD SPECIMEN / Unknown Venipuncture / Unknown 11/19/2019 4:29 PM CDT 11/19/2019 4:31 PM CDT Sj Jensen MD LAB - CHEMISTRY VARGHESE GRAY [facility] [address] [place] [address] * URIC ACID BLOOD (11/19/2019 3:07 PM CDT) Uric Acid 6.2 3.5 - 7.2 mg/dL 11/19/2019 4:18 PM CDT [facility] Blood BLOOD SPECIMEN / Unknown Venipuncture / Unknown 11/19/2019 3:07 PM CDT 11/19/2019 3:11 PM CDT Sj Jensen MD LAB - CHEMISTRY VARGHESE GRAY Performing Organization Address [facility]/ZIP Co de Phone Number [facility] [address] [place] [address] * (ABNORMAL) C-REACTIVE PROTEIN (11/19/2019 3:07 PM CDT) Pathologist [facility] [place] C-Reactive Protein 4.62(H) <=0.50 mg/dL 11/19/2019 3:36 PM CDT [facility] Blood BLOOD SPECIMEN / Unknown Venipuncture / Unknown 11/19/2019 3:07 PM CDT 11/19/2019 3:11 PM CDT Sj Jensen MD LAB - CHEMISTRY VARGHESE GRAY [facility] [address] [place] [address] * (ABNORMAL) ERYTHROCYTE SEDIMENTATION RATE (11/19/2019 3:07 PM CDT) Pathologist [facility] [place] Erythrocyte Sedimentation Rate Automated 64(H) 0 - 20 MM/HR 11/19/2019 3:24 PM CDT [facility] Blood BLOOD SPECIMEN / Unknown Venipuncture / Unknown 11/19/2019 3:07 PM CDT 11/19/2019 3:11 PM CDT Sj Jensen MD LAB - HEMATOLOGY ORD ERABLES [facility] [address] [place] [address] * CBC W AUTO DIFFERENTIAL (11/19/2019 3:07 PM CDT) Only the most recent of5 resultswithin the time period is included. Pathologist [facility] [place] WBC 8.9 4.4 - 10.7 x10E9/L 11/19/2019 3:14 PM CDT [facility] WBC Corrected 11/19/2019 3:14 PM CDT [facility] RBC 4.31 3.80 - 5.40 x10E12/L 11/19/2019 3:14 PM CDT [facility] Hemoglobin 13.0 12.0 - 17.6 gm/dL 11/19/2019 3:14 PM CDT [facility] Hematocrit 40.9 35.2 - 51.7 % 11/19/2019 3:14 PM CDT [facility] MCV 94.9 80.7 - 98.3 fl 11/19/2019 3:14 PM CDT [facility] MCH 30.2 26.7 - 34.0 pg 11/19/2019 3:14 PM CDT [facility] MCHC 31.8 30.8 - 35.9 gm/dL 11/19/2019 3:14 PM CDT [facility] Platelet Count 256 153 - 416 x10E9/L 11/19/2019 3:14 PM CDT [facility] RDW-CV 13.0 12.1 - 14.9 % 11/19/2019 3:14 PM CDT [facility] MPV 9.7 9.4 - 12.9 fl 11/19/2019 3:14 PM CDT [facility] Neutrophils % 65.5 44.0 - 73.0 % 11/19/2019 3:14 PM CDT [facility] Lymphocytes % 20.6 20.0 - 43.0 % 11/19/2019 3:14 PM CDT [facility] Monocytes % 10.8 5.0 - 13.0 % 11/19/2019 3:14 PM CDT [facility] Eosinophils % 2.1 0.0 - 6.0 % 11/19/2019 3:14 PM CDT [facility] Basophils % 0.7 0.0 - 2.0 % 11/19/2019 3:14 PM CDT [facility] Immature Granulocytes 0.3 0 - 1 % 11/19/2019 3:14 PM CDT [facility] Neutrophil Absolute 5.83 2.01 - 7.14 x10E9/L 11/19/2019 3:14 PM CDT [facility] Lymphocytes Absolute 1.83 1.07 - 3.94 x10E9/L 11/19/2019 3:14 PM CDT [facility] Monocytes Absolute 0.96 0.26 - 1.07 x10E9/L 11/19/2019 3:14 PM CDT [facility] Eosinophils Absolute 0.19 0 - 0.47 x10E9/L 11/19/2019 3:14 PM CDT [facility] Basophils Absolute 0.06 0 - 0.08 x10E9/L 11/19/2019 3:14 PM CDT [facility] Immature Granulocytes Absolute 0.03 0.00 - 0.06 x10E9/L 11/19/2019 3:14 PM CDT [facility] nRBC Auto 0 /100 WBC 11/19/2019 3:14 PM CDT [facility] Blood BLOOD SPECIMEN / Unknown Venipuncture / Unknown 11/19/2019 3:07 PM CDT 11/19/2019 3:11 PM CDT Sj Jensen MD LAB - HEMATOLOGY ORD ERABLES [facility] [address] [place] [address] * (ABNORMAL) COMPREHENSIVE METABOLIC PANEL (11/19/2019 3:07 PM CDT) Only the most recent of4 resultswithin the time period is included. Glucose 110(H) 70 - 105 mg/dL 11/19/2019 3:36 PM [facility] Sodium 145 136 - 145 mmol/L 11/19/2019 3:36 PM [facility] Potassium 4.2 3.5 - 5.1 mmol/L 11/19/2019 3:36 PM [facility] Chloride 109(H) 98 - 107 mmol/L 11/19/2019 3:36 PM [facility] CO2 23 23 - 31 mmol/L 11/19/2019 3:36 PM [facility] Calcium 9.6 8.4 - 10.4 mg/dL 11/19/2019 3:36 PM [facility] Anion Gap 13 8 - 16 mmol/L 11/19/2019 3:36 PM [facility] BUN 20 8.4 - 25.7 mg/dL 11/19/2019 3:36 PM [facility] Creatinine 1.29(H) 0.72 - 1.25 mg/dL 11/19/2019 3:36 PM [facility] Alkaline Phosphatase 105 40 - 150 U/L 11/19/2019 3:36 PM [facility] ALT 14 0 - 61 U/L 11/19/2019 3:36 PM [facility] AST 16 5 - 34 U/L 11/19/2019 3:36 PM [facility] Protein Total 7.7 6.4 - 8.3 gm/dL 11/19/2019 3:36 PM [facility] Albumin 4.0 3.2 - 4.6 gm/dL 11/19/2019 3:36 PM [facility] Bilirubin Total 0.7 0.2 - 1.2 mg/dL 11/19/2019 3:36 PM [facility] eGFR by MDRD 55(L) >60 mL/min/1.7 3m2 11/19/2019 3:36 PM [facility] eGFR by MDRD >60 >60 mL/min/1.7 3m2 11/19/2019 3:36 PM [facility] Blood BLOOD SPECIMEN / Unknown Venipuncture / Unknown 11/19/2019 3:07 PM CDT 11/19/2019 3:11 PM CDT Sj Jensen MD LAB - CHEMISTRY VARGHESE GRAY Performing Organization Address City/[facility]/ZIP Co de Phone Number [facility] [address] [place] [address] * Splint Application (11/19/2019 2:43 PM CDT) [...] (Bezet) 469 ms [facility] MUSE Calculated P Townsend 36 degrees [facility] MUSE Calculated R Townsend 17 degrees [facility] MUSE Calculated T Townsend 42 degrees [facility] MUSE Interpretation EKG Normal sinus rhythm Normal ECG Confirmed by STEPHANIE SAMUELS, SUNDAR ([id number]) on 11/20/2019 10:47:54 AM [facility] MUSE 11/19/2019 1:36 PM CDT 11/20/2019 10:47 AM CDT Sj Jensen MD ECG ORDERABLES Performing Organization Address [facility] Co de Phone Number [facility] * XR SHOULDER LEFT 2VW [...] trauma, anticoagulation.. TECHNIQUE: All CT scans at [facility] are performed using dose optimization techniques as appropriate to include AEC and Adjustment of mA and/or kV according to patient size, exam type and indication ([facility] CQMS #436). Standard noncontrast CT scan of the brain. As a standard caveat and not specifically recommended based on the current examination, if patient is clinically able and the results would change clinical management, MRI with diffusion offers increased sensitivity for acute infarction, certain types of hemorrhage (e.g. SANTOS) and potentially mass. FINDINGS: Within the [id number], ocular globes are intact and bony orbits [...] trauma, anticoagulation.. TECHNIQUE: All CT scans at [facility] are performed using dose optimization techniques as appropriate to include AEC and Adjustment of mA and/or kV according to patient size, exam type and indication ([facility] CQMS #436). Standard noncontrast CT scan of the brain. As a standard caveat and not specifically recommended based on the current examination, if patient is clinically able and the results would change clinical management, MRI with diffusion offers increased sensitivity for acute infarction, certain types of hemorrhage (e.g. SANTOS) and potentially mass. FINDINGS: Within the [id number], ocular globes are intact and bony orbits [...] Culture to follow 08/15/2019 4:06 PM CDT [facility] RBC UA 6-10(A) None Seen, 0-2, 3-5 # /hpf 08/15/2019 4:06 PM CDT [facility] WBC UA 6-10(A) None Seen, 0-5 # /hpf 08/15/2019 4:06 PM CDT [facility] Bacteria UA None Seen None Seen 08/15/2019 4:06 PM CDT [facility] Squamous Epithelial Cells 0-2 None Seen, 0-2, 3-5 /hpf 08/15/2019 4:06 PM CDT [facility] Mucus UA 1+ /LPF 08/15/2019 4:06 PM CDT [facility] Urine URINE SPECIMEN OBTAINED BY CLEAN CATCH PROCEDURE / Unknown Collection / Unknown 08/15/2019 3:34 PM CDT 08/15/2019 3:35 PM CDT Narrative [facility] - 08/15/2019 4:06 PM CDT Maria Isabel Lopez PA-C LAB - URINALYSIS ORD ERABLES [facility] [address] [facility] [place] [address] * (ABNORMAL) URINALYSIS REFLEX MICROSCOPIC REFLEX CULTURE (08/15/2019 3:34 PM CDT) Only the most recent of4 resultswithin the time period is included. Color UA Yellow Straw, Yellow 08/15/2019 3:40 PM CDT [facility] Clarity UA Clear Clear 08/15/2019 3:40 PM CDT [facility] Glucose UA Negative Negative 08/15/2019 3:40 PM CDT [facility] Bilirubin UA Negative Negative 08/15/2019 3:40 PM CDT [facility] Ketone UA Negative Negative 08/15/2019 3:40 PM CDT [facility] Specific Stevenson UA 1.020 1.005 - 1.030 08/15/2019 3:40 PM CDT [facility] Blood UA Negative Negative 08/15/2019 3:40 PM [facility] pH UA 5.0 5.0 - 8.0 pH 08/15/2019 3:40 PM CDT [facility] Protein UA 2+(A) Negative 08/15/2019 3:40 PM CDT [facility] Urobilinogen UA Negative Negative mg/dL 08/15/2019 3:40 PM CDT [facility] Nitrite UA Negative Negative 08/15/2019 3:40 PM CDT [facility] Leukocyte UA Trace(A) Negative 08/15/2019 3:40 PM [facility] Urine Microscopy Urine microscopy to follow 08/15/2019 3:40 PM [facility] Reflex Status Culture to follow 08/15/2019 3:40 PM [facility] Urine URINE SPECIMEN OBTAINED BY CLEAN CATCH PROCEDURE / Unknown Collection / Unknown 08/15/2019 3:34 PM CDT 08/15/2019 3:35 PM CDT [facility] - 08/15/2019 3:40 PM CDT Ascorbic Acid can cause false negative urine strip tests for blood, glucose, nitrite, and bilirubin. Maria Isabel Lopez PA-C LAB - URINALYSIS ORD ERABLES [facility] [address] [place] [address] * CULTURE URINE (08/15/2019 3:34 PM CDT) Only the most recent of2 resultswithin the time period is included. Culture Urine <10,000 CFU/mL urogenital chun LUCILA 08/17/2019 7:27 AM CDT [facility] Urine URINE SPECIMEN OBTAINED BY CLEAN CATCH PROCEDURE / Unknown Collection / Unknown 08/15/2019 3:34 PM CDT 08/15/2019 3:35 PM CDT Maria Isabel Lopez PA-C LAB - MICROBIOLOGY O RDERABLES [facility] [address] [place] [address], [facility] [phone] * XR LUMBAR SPINE 2 OR 3 [...] METABOLIC PANEL (CALCIUM TOTAL) (03/24/2009 5:50 AM INTEGRATED PEST MANAGEMENT TECHNICIAN) Glucose 98. 75 - 110 mg/dL [facility] BUN 21. 9 - 21 mg/dL [facility] Creatinine 2.11(H) 0.66 - 1.25 mg/dL [facility] BUN/Creatinine Ratio 9.9 [facility] Sodium 140. 137 - 145 mmol/L [facility] Potassium 4.0 3.6 - 5.0 mmol/L [facility] Chloride 106. 98 - 107 mmol/L [facility] CO2 24. 22 - 31 mmol/L [facility] Anion Gap 10. [facility] Calcium 8.7(DE) 8.4 - 11.5 mg/dL [facility] eGFR by MDRD 39.2(L) SEE BELOW ml/min/1.7 3 m2 [facility] Comment: >60 Normal Chronic Disease <60 Renal Failure <15 BLOOD SPECIMEN / Unknown 03/24/2009 5:50 AM INTEGRATED PEST MANAGEMENT TECHNICIAN 03/24/2009 6:25 AM INTEGRATED PEST MANAGEMENT TECHNICIAN Joellen Finch MD LAB - CHEMISTRY ORDGiulia GRAY Performing Organization Address [facility]/ZIP Co de Phone Number [facility] [address] [place] [address] * LIPASE BLOOD (03/23/2009 6:25 PM INTEGRATED PEST MANAGEMENT TECHNICIAN) Only the most recent of2 resultswithin the time period is included. Lipase 64. 23 - 208 U/L [facility] BLOOD SPECIMEN / Unknown 03/23/2009 6:25 PM INTEGRATED PEST MANAGEMENT TECHNICIAN 03/23/2009 6:29 PM INTEGRATED PEST MANAGEMENT TECHNICIAN Andriy Santana MD LAB - CHEMISTRY ORDGiulia GRAY Performing Organization Address [facility] Co de Phone Number [facility] [address] [place] [address] * AMYLASE BLOOD (03/23/2009 6:25 PM INTEGRATED PEST MANAGEMENT TECHNICIAN) Amylase 38. 30 - 110 U/L [facility] BLOOD SPECIMEN / Unknown 03/23/2009 6:25 PM INTEGRATED PEST MANAGEMENT TECHNICIAN 03/23/2009 6:29 PM INTEGRATED PEST MANAGEMENT TECHNICIAN Andriy Santana MD LAB - CHEMISTRY VARGHESE Lu Organization Address City/State/ZIP Co de Phone Number [facility] [address] [place] [address] * CT ABDOMEN AND PELVIS WITH IV CONTRAST (09/17/2008 9:50 PM CDT) Anatomical Region Laterality Modality Abdomen, Pelvis Computed Tomogra phy 09/18/2008 7:37 AM CDT Impressions 09/21/2008 6:22 PM CDT -- The following data has been recovered by the [email or web address] -- THE PATIENT IS MORBIDLY OBESE. CHOLELITHIASIS [...] following data has been recovered by the [email or web address] -- CT SCAN OF THE ABDOMEN AND [...]
--- OUTSIDE RECORDS SUMMARY | 2024-05-19 07:15 | XMS_ITS | Clinical Summary ---
Author Organization [facility] Address [address] [place] [address] Care Team Providers Care Vegetable Worker Name Role Phone Unavailable Primary Care Provider Unavailabl e Source Comments [facility],non-owned Affiliates and Associated Physician Practices is amultiple site organization consisting of ambulatory clinics and hospital sitesin [place], [place], [place] and [place]. This disclosure is being madepursuant to the Care Everywhere program and may not contain all information available regarding this patient. Last updated 17.[facility] Allergies Active Allergy Reactions Criticality Noted Date [...]
--- OUTSIDE RECORDS SUMMARY | 2024-05-19 07:15 | XMS_ITS | Continuity of Care Document ---
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 It does not include entries that were removed or entered in error. Problem Status Onset Date Problem Type Date of Resolution Comments Source Anemia Active Condition [facility] Anticoagulant control Active Condition [facility] Benign essential hypertension Active Condition [facility] Chronic Kidney Disease Stage 3A (SCT 637572321) Active Condition [facility] Diastolic dysfunction Active Condition [facility] Eczema (SCT 24431584) Active Condition [facility] Erectile dysfunction (SNOMED CT 134580349) Active Condition [facility] Exposure to potentially hazardous substance Active Condition [facility] Folate deficiency Active Condition [facility] Foot pain Active Condition [facility] Gout Active Condition [facility] History of calculus of kidney Active Condition [facility] History of recurrent deep vein thrombosis Active Condition [facility] Hyperlipidemia Active Condition [facility] Knee pain Active Condition [facility] Morbid obesity Active Condition [facility] Numbness Active Condition [facility] Obesity Active Condition [facility] Obstructive Sleep Apnea of Adult (SCT 7990226318210) Active Condition [facility] Osteoarthritis of knee Active Condition [facility] Pyuria Active Condition [facility] Stasis dermatitis Active Condition [facility] 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 [facility] Type 2 diabetes mellitus Active Condition [facility] Vitamin D Deficiency (SCT 77118545) Active Condition [facility] Diagnosis: ICD-10-CM I10 Essential (primary) hypertension Active Diagnosis [facility] Diagnosis: ICD-10-CM E78.5 Hyperlipidemia, unspecified Active Diagnosis [facility] Diagnosis: ICD-10-CM M19.90 Unspecified osteoarthritis, unspecified site Active Diagnosis [facility] Diagnosis: ICD-10-CM R09.81 Nasal congestion Active Diagnosis [facility] Diagnosis: ICD-10-CM J20.9 Acute bronchitis, unspecified Active Diagnosis [facility] Diagnosis: ICD-10-CM H25.13 Age-related nuclear cataract, bilateral Active Diagnosis [facility] Diagnosis: ICD-10-CM M10.9 Gout, unspecified Active Diagnosis [facility] Diagnosis: ICD-10-CM E66.01 Morbid (severe) obesity due to excess calories Active Diagnosis [facility] Diagnosis: ICD-10-CM B35.1 Tinea unguium Active Diagnosis [facility] Diagnosis: ICD-10-CM E11.22 Type 2 diabetes mellitus w diabetic chronic kidney disease Active Diagnosis [facility] Diagnosis: ICD-10-CM 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 [facility] Diagnosis: ICD-10-CM Z86.718 Personal history of other venous thrombosis and embolism Active Diagnosis [facility] Diagnosis: ICD-10-CM R26.2 Difficulty in walking, not elsewhere classified Active Diagnosis [facility] Diagnosis: ICD-10-CM Z63.6 Dependent relative needing care at home Active Diagnosis [facility] Diagnosis: ICD-10-CM M17.0 Bilateral primary osteoarthritis of knee Active Diagnosis [facility] Diagnosis: ICD-10-CM E11.9 Type 2 diabetes mellitus without complications Active Diagnosis [facility] Medications Combined list of outpatient medications from [...] DAY NEEDED ORAL ACTIVE Meghan URBINA 2014 [facility] ALBUTEROL SO4 90MCG/ACTUA T (CFC-F) INHL,ORAL,8 .5GM INHALE 1 PUFF BY ORAL INHALATI ON FOUR TIMES A DAY NEEDED SHAKE WELL. RINSE MOUTHPIE CE FREQUENT LY TO PREVENT CLOGGING . RESPIR ATORY (INHAL ATION) 05/03/2024 [id number] 5 SHANE BE D 2024 1 [facility] AMLODIPINE BESYLATE 10MG TAB TAKE ONE TABLET BY MOUTH ONCE A DAY FOR HEART/BL OOD PRESSURE ORAL ACTIVE 11/07/2024 [id number] 5 MARIA DEL ROSARIO ESTES 2023 90 [facility] AMLODIPINE BESYLATE 10MG TAB TAKE ONE TABLET BY MOUTH ONCE A DAY FOR HEART/BL OOD PRESSURE ORAL DISCONT INUED 05/09/2024 [id number] 4 MARIA DEL ROSARIO ESTES 2023 90 [facility] AMLODIPINE BESYLATE 10MG TAB TAKE ONE TABLET BY MOUTH ONCE A DAY FOR HEART/BL OOD PRESSURE ORAL DISCONT INUED 05/09/2024 [id number] 4 MARIA DEL ROSARIO ESTES 2023 90 [facility] ATORVASTATI N CA 10MG TAB TAKE ONE-HALF TABLET BY MOUTH EVERY EVENING FOR HIGH CHOLESTE ROL ORAL DISCONT INUED BY PROVIDE R 05/20/2024 [id number] 4 LONNIE CASILLAS 2023 45 [facility] ATORVASTATI N CA 20MG TAB TAKE ONE-HALF TABLET BY MOUTH EVERY EVENING ORAL ACTIVE 04/17/2025 [id number] 5 LONNIE CASILLAS 2024 45 [facility] BENZONATATE 100MG CAP TAKE ONE CAPSULE BY MOUTH THREE TIMES A DAY NEEDED FOR COUGH ORAL 05/03/2024 [id number] 5 BESHANE 2024 90 [facility] CARBOXYMETH YLCELLULOSE NA 0.5% SOLN,OPH INSTILL 1 DROP IN BOTH EYES FOUR TIMES A DAY NEEDED FOR DRY EYE(S) OPHTHA LMIC ACTIVE 02/18/2025 [id number] 4 DELVIN HENDERSON 2023 45 [facility] CHOLECALCIF MARK ANTHONY 50MCG (2,000UNIT) TAB TAKE ONE TABLET BY MOUTH ONCE A DAY FOR VITAMIN D DEFICIEN CY ORAL ACTIVE 11/07/2024 [id number] 4 MARIA DEL ROSARIO ESTES 2023 100 [facility] CHOLECALCIF MARK ANTHONY 50MCG (2,000UNIT) TAB TAKE ONE TABLET BY MOUTH ONCE A DAY FOR VITAMIN D DEFICIEN CY ORAL DISCONT INUED 09/11/2023 [id number] 4 RA ARIC PÉREZ 2022 100 [facility] COLCHICINE 0.6MG TAB TAKE ONE TABLET BY MOUTH ONCE A DAY FOR GOUT (STOP MED AND CONTACT PROVIDER AT FIRST SIGN OF NAUSEA, VOMITING OR DIARRHEA ) ORAL ACTIVE 05/08/2025 [id number] 5 CONCETTA GEE 2024 90 [facility] COLCHICINE 0.6MG TAB TAKE ONE TABLET BY MOUTH ONCE A DAY FOR GOUT (STOP MED AND CONTACT PROVIDER AT FIRST SIGN OF NAUSEA, VOMITING OR DIARRHEA ) ORAL DISCONT INUED 05/08/2024 [id number] 4 ELYSE POOLE 2023 90 [facility] DICLOFENAC NA 1% GEL,TOP APPLY 2 GM TO AFFECTED AREA(S) FOUR TIMES A DAY NEEDED FOR PAIN/INF LAMMATIO N; NOT MORE THAN 16 GRAMS DAILY TO ANY LOWER EXTREMIT Y JOINT. NOT MORE THAN 8 GRAMS DAILY TO ANY UPPER EXTREMIT Y JOINT. MAX 32GM/DAY OVER ALL JOINTS. (MEASURE DOSE WITH RULER ATTACHED INSIDE BOX) LC Pimentel DISCONT INUED 11/07/2024 [id number] 4 MARIA DEL ROSARIO ESTES 2023 200 [facility] DICLOFENAC NA 1% GEL,TOP APPLY 2 GM TO AFFECTED AREA(S) FOUR TIMES A DAY NEEDED FOR PAIN/INF LAMMATIO N; NOT MORE THAN 16 GRAMS DAILY TO ANY LOWER EXTREMIT Y JOINT. NOT MORE THAN 8 GRAMS DAILY TO ANY UPPER EXTREMIT Y JOINT. MAX 32GM/DAY OVER ALL JOINTS. (MEASURE DOSE WITH RULER ATTACHED INSIDE BOX) LC Pimentel DISCONT INUED 05/08/2024 [id number] 4 ELYSE POOLE RTHA M 2023 200 [facility] DICLOFENAC NA 1% GEL,TOP APPLY 2 GM TO AFFECTED AREA(S) FOUR TIMES A DAY FOR PAIN NO MORE THAN 16 GM/DAY TO ANY LOWER EXTREMIT Y JOINT. NO MORE THAN 8 GM/DAY TO ANY UPPER EXTREMIT Y JOINT. MAX 32GM/DAY OVER ALL JOINTS.( MEASURE DOSE WITH RULER INSIDE BOX) LC Pimentel 05/05/2024 [id number] 5 AAKASH FREITAS 2024 100 [facility] ENALAPRIL MALEATE 20MG TAB TAKE TWO TABLETS BY MOUTH ONCE A DAY FOR HEART OR TO LOWER BLOOD PRESSURE ORAL ACTIVE 11/07/2024 [id number] 4 MARIA DEL ROSARIO ESTES [address] [facility] ENALAPRIL MALEATE 20MG TAB TAKE ONE TABLET BY MOUTH ONCE A DAY FOR HEART OR TO LOWER BLOOD PRESSURE ORAL DISCONT INUED (EDIT) 05/09/2024 [id number] 4 MARIA DEL ROSARIO ESTES 2023 90 [facility] EZETIMIBE 10MG TAB TAKE ONE TABLET BY MOUTH ONCE A DAY ORAL DISCONT INUED BY PROVIDE R 11/07/2024 [id number] 4 MARIA DEL ROSARIO ESTES 2023 90 [facility] FEBUXOSTAT 80MG TAB TAKE ONE TABLET BY MOUTH ONCE A DAY FOR GOUT ORAL ACTIVE 02/07/2025 [id number] 4 VALENTIN DOBBINS 2023 90 [facility] FEBUXOSTAT 80MG TAB TAKE ONE-HALF TABLET BY MOUTH ONCE A DAY FOR GOUT ORAL 01/26/2024 [id number] 4 ELYSE POOLE 2022 45 [facility] GUAIFENESIN 400MG TAB TAKE ONE TABLET BY MOUTH EVERY 6 HOURS NEEDED FOR MUCUS THINNING TAKE WITH 8 OUNCE GLASS OF WATER. ORAL 05/03/2024 [id number] 5 SHANE BE D 2024 120 [facility] HYDROPHILIC (EQV EUCERIN) CREAM,TOP APPLY SPARINGL Y TO AFFECTED AREA(S) ONCE A DAY FOR DRY SKIN (EXTERNA L USE ONLY) TOPICA L DISCONT INUED 09/06/2023 [id number] 4 RA ARIC PÉREZ 2022 454 [facility] HYDROPHILIC (EQV EUCERIN) CREAM,TOP APPLY SPARINGL Y TO AFFECTED AREA(S) ONCE A DAY DRY SKIN (EXTERNA L USE ONLY) TOPICA L 05/10/2024 [id number] 4 MARIA DEL ROSARIO ESTES 2023 454 [facility] LIDOCAINE 5% PATCH APPLY 1 PATCH TO SKIN SITE ONCE A DAY APPLY PATCH AND PRESS FIRMLY FOR 10-15 SECONDS. KEEP ON FOR 12 HOURS THEN REMOVE PATCH FOR 12 HOURS. TRANSD ERMAL ACTIVE 11/07/2024 [id number] 4 MARIA DEL ROSARIO ESTSE 2023 30 [facility] MULTIVITAMI N CAP/TAB TAKE BY MOUTH ONCE A DAY ORAL ACTIVE Meghan URBINA 2015 [facility] ROSUVASTATI N CA 20MG TAB TAKE ONE-HALF TABLET BY MOUTH EVERY EVENING FOR HIGH CHOLESTE ROL .REPOR T ANY UNEXPLAI RAMAKRISHNA MUSCLE PAIN OR WEAKNESS TO PROVIDER ORAL 09/11/2023 [id number] 4 RA ARIC PÉREZ 2022 45 [facility] TADALAFIL 20MG TAB TAKE ONE TABLET BY MOUTH EVERY WEEK NEEDED (TAKE 30 MINUTES PRIOR TO SEXUAL ACTIVITY ) - LIMIT 18 DOSES PER 90 DAYS ORAL ACTIVE 12/06/2024 [id number] 4 MARIA DEL ROSARIO ESTES 2023 18 [facility] TRIAMCINOLO NE ACETONIDE 0.1% OINT,TOP APPLY SPARINGL Y TO AFFECTED AREA(S) TWICE A DAY FOR ATOPIC DERMATIT IS (EXTERNA L USE ONLY) TOPICA L 05/10/2024 [id number] 4 MARIA DEL ROSARIO ESTES 2023 80 [facility] Allergies, Adverse Reactions, Alerts Combined list of allergies from [facility] Affairs facilities. It does not include entries that were removed or entered in error. Substance Category Reaction Severity Reaction type Status Date Reported Comments Source ALLOPURINOL Propensity to adverse reactions to drug (finding) Joint pain active 7 [facility] EZETIMIBE Propensity to adverse reactions to drug (finding) Gout MODERATE active 4 [facility] GABAPENTIN Propensity to adverse reactions to drug (finding) Sedated active 0 [facility] MERCURY,COLETTE IATED Propensity to adverse reactions to drug (finding) active 5 [facility] ROSUVASTATIN Propensity to adverse reactions to drug (finding) Gout MODERATE active 4 [facility] SILDENAFIL Propensity to adverse reactions to drug (finding) Headache active 5 [facility] Immunizations Combined list of available immunizations from the [facility] and [facility] facilities. Immunization Series Date Given Administered By Site Reaction Lot Number CVX Code Drug Creative Consultant Status Comments Source INFLUENZA, HIGH-DOSE, TRIVALENT, PF 2024 VALENTINA GARCIA RIGHT DELTO ID [id number] 135 complet ed [facility] INFLUENZA VACCINE, QUADRIVALENT, ADJUVANTED 2022 LINA APARICIO RIGHT DELTO ID [id number] 205 complet ed [facility] INFLUENZA VACCINE, QUADRIVALENT, ADJUVANTED [address] [facility] INFLUENZA, INJECTABLE, QUADRIVALENT, PRESERVATIVE FREE 2018 150 complet ed [facility] TDAP 2018 115 complet ed Right Deltoid [facility] INFLUENZA, INJECTABLE, QUADRIVALENT, PRESERVATIVE FREE 2017 150 complet ed [facility] ZOSTER RECOMBINANT 2 2017 187 complet ed [facility] REC[facility] 1 2017 187 complet ed [facility] INFLUENZA, INJECTABLE, QUADRIVALENT, PRESERVATIVE FREE 2016 150 complet ed [facility] PNEUMOCOCCAL CONJUGATE PCV 13 2016 133 complet ed [facility] PNEUMOCO[facility] POLYSACCHARID E PPV23 2015 33 complet ed [facility] INFLUENZA, SEASONAL, INJECTABLE, PRESERVATIVE FREE 2014 140 complet ed [facility] ZOSTER LIVE 2014 121 complet ed [facility] INFLUENZA, UNSPECIFIED FORMULATION 2013 88 complet ed [facility] TDAP 2008 [facility]FLUENZA, UNSPECIFIED FORMULATION 2008 88 complet ed [facility] Results Combined list of recent chemistry, hematology and other laboratory results from Department of Defense and Veterans Affairs, ranging from 15 months to all on record, depending upon the facility. Order Name Results Value Reference Range Date Interpretation Specimen Comments Source CBC LEUKOCYTES [#/VOLUME] IN BLOOD BY AUTOMATED COUNT 6.1 10*3/uL 3.6 - 11.2 01/24 Specimen Type: BLOOD No comment entered. Ordering Provider: MERLINE ESTES Report Released Date/Time: Jan 24, 2024 02:12 PM Reporting Lab: [facility] [address] [place] [phone] Performing Lab: [facility] [address] [place] [phone] [facility] CBC ERYTHROCYT ES [#/VOLUME] IN BLOOD BY AUTOMATED COUNT 4.27 10*6/uL 4.10 - 5.70 01/24 Specimen Type: BLOOD No comment entered. Ordering Provider: MERLINE ESTES Report Released Date/Time: Jan 24, 2024 02:12 PM Reporting Lab: [place] [phone] Performing Lab: [address] [phone] [facility] CBC HEMOGLOBIN [MASS/VOLU ME] IN BLOOD 13.0 g/dL 13.1 - 16.8 01/24 L Specimen Type: BLOOD No comment entered. Ordering Provider: MERLINE ESTES Report Released Date/Time: Jan 24, 2024 02:12 PM Reporting Lab: [address] [address] Performing Lab: [address] [phone] [facility] CBC HEMATOCRIT [VOLUME FRACTION] OF BLOOD 39.4 38.2 - 48.4 01/24 Specimen Type: BLOOD No comment entered. Ordering Provider: MERLINE ESTES Report Released Date/Time: Jan 24, 2024 02:12 PM Reporting Lab: [address] [phone] Performing Lab: [address] [phone] [place] [address] [facility] CBC MCV [ENTITIC VOLUME] BY AUTOMATED COUNT 92.3 fL 80.0 - 100.0 01/24 Specimen Type: BLOOD No comment entered. Ordering Provider: MERLINE ESTES Report Released Date/Time: Jan 24, 2024 02:12 PM Reporting Lab: [address] [phone] Performing Lab: [address] [phone] [facility] CBC MCH [ENTITIC MASS] BY AUTOMATED COUNT 30.4 pg 27.0 - 34.0 01/24 Specimen Type: BLOOD No comment entered. Ordering Provider: MERLINE ESTES Report Released Date/Time: Jan 24, 2024 02:12 PM Reporting Lab: [address] [phone] Performing Lab: [address] [phone] [facility] CBC MCHC [MASS/VOLU ME] BY AUTOMATED COUNT 33.0 g/dL 33.0 - 36.0 01/24 Specimen Type: BLOOD No comment entered. Ordering Provider: MERLINE ESTES Report Released Date/Time: Jan 24, 2024 02:12 PM Reporting Lab: [address] [phone] Performing Lab: [address] [phone] [facility] CBC PLATELETS [#/VOLUME] IN BLOOD BY AUTOMATED COUNT 275 10*3/uL 150 - 400 01/24 Specimen Type: BLOOD No comment entered. Ordering Provider: MERLINE ESTES Report Released Date/Time: Jan 24, 2024 02:12 PM Reporting Lab: [address] [phone] Performing Lab: [address] [phone] [place] [address] [facility] CBC PLATELET MEAN VOLUME [ENTITIC VOLUME] IN BLOOD BY AUTOMATED COUNT 10.6 fL 7.5 - 11.2 01/24 Specimen Type: BLOOD No comment entered. Ordering Provider: MERLINE ESTES Report Released Date/Time: Jan 24, 2024 02:12 PM Reporting Lab: [facility] [address] [place] [phone] Performing Lab: [address] [phone] [place] [address] [facility] CBC ERYTHROCYT E DISTRIBUTI ON WIDTH [RATIO] BY AUTOMATED COUNT 12.8 11.8 - 15.1 01/24 Specimen Type: BLOOD No comment entered. Ordering Provider: MERLINE ESTES Report Released Date/Time: Jan 24, 2024 02:12 PM Reporting Lab: [facility] [address] [facility] [phone] Performing Lab: [facility] [address] [place] [phone] [facility] CBC LYMPHOCYTE S/100 LEUKOCYTES IN BLOOD BY AUTOMATED COUNT 34 01/24 Specimen Type: BLOOD No comment entered. Ordering Provider: MERLINE ESTES Report Released Date/Time: Jan 24, 2024 02:12 PM Reporting Lab: [facility] [address] [place] [phone] Performing Lab: [facility] [address] [place] [phone] [facility] CBC MONOCYTES/ 100 LEUKOCYTES IN BLOOD BY AUTOMATED COUNT 10 01/24 Specimen Type: BLOOD No comment entered. Ordering Provider: MERLINE ESTES Report Released Date/Time: Jan 24, 2024 02:12 PM Reporting Lab: [facility] [address] [place] [phone] Performing Lab: [facility] [address] [place] [phone] [facility] CBC NEUTROPHIL S/100 LEUKOCYTES IN BLOOD BY AUTOMATED COUNT 52 01/24 Specimen Type: BLOOD No comment entered. Ordering Provider: MERLINE ESTES Report Released Date/Time: Jan 24, 2024 02:12 PM Reporting Lab: [facility] [address] [facility] [phone] Performing Lab: [facility] [address] [place] [phone] [facility] CBC EOSINOPHIL S/100 LEUKOCYTES IN BLOOD BY AUTOMATED COUNT 3 01/24 Specimen Type: BLOOD No comment entered. Ordering Provider: MERLINE ESTES Report Released Date/Time: Jan 24, 2024 02:12 PM Reporting Lab: [facility] [address] [place] [phone] Performing Lab: [address] [phone] [facility] CBC BASOPHILS/ 100 LEUKOCYTES IN BLOOD BY AUTOMATED COUNT 1 01/24 Specimen Type: BLOOD No comment entered. Ordering Provider: MERLINE ESTES Report Released Date/Time: Jan 24, 2024 02:12 PM Reporting Lab: [address] [phone] Performing Lab: [address] [phone] [facility] CBC LYMPHOCYTE S [#/VOLUME] IN BLOOD BY AUTOMATED COUNT 2.07 10*3/uL 0.77 - 4.50 01/24 Specimen Type: BLOOD No comment entered. Ordering Provider: MERLINE ESTES Report Released Date/Time: Jan 24, 2024 02:12 PM Reporting Lab: [address] [phone] Performing Lab: [address] [phone] [facility] CBC MONOCYTES [#/VOLUME] IN BLOOD BY AUTOMATED COUNT 0.62 10*3/uL 0.19 - 0.80 01/24 Specimen Type: BLOOD No comment entered. Ordering Provider: MERLINE ESTES Report Released Date/Time: Jan 24, 2024 02:12 PM Reporting Lab: [address] [phone] Performing Lab: [address] [phone] [facility] CBC NEUTROPHIL S [#/VOLUME] IN BLOOD BY AUTOMATED COUNT 3.21 10*3/uL 2.10 - 8.00 01/24 Specimen Type: BLOOD No comment entered. Ordering Provider: MERLINE ESTES Report Released Date/Time: Jan 24, 2024 02:12 PM Reporting Lab: [address] [phone] Performing Lab: [address] [phone] [facility] CBC EOSINOPHIL S [#/VOLUME] IN BLOOD BY AUTOMATED COUNT 0.19 10*3/uL 0.00 - 0.60 01/24 Specimen Type: BLOOD No comment entered. Ordering Provider: MERLINE ESTES Report Released Date/Time: Jan 24, 2024 02:12 PM Reporting Lab: [address] [phone] Performing Lab: [address] [phone] [facility] CBC BASOPHILS [#/VOLUME] IN BLOOD BY AUTOMATED COUNT 0.04 10*3/uL 0.00 - 0.20 01/24 Specimen Type: BLOOD No comment entered. Ordering Provider: MERLINE ESTES Report Released Date/Time: Jan 24, 2024 02:12 PM Reporting Lab: [address] [phone] Performing Lab: [address] [phone] [place] [address] [facility] COMPREHE NSIVE METABOLI C PANEL CREATININE [MASS/VOLU ME] IN SERUM OR PLASMA 1.49 mg/dL 0.7 - 1.3 01/24 H Specimen Type: PLASMA Comment: No hemolysis noted. Ordering Provider: MERLINE ESTES Report Released Date/Time: Jan 24, 2024 02:12 PM Reporting Lab: [address] [phone] Performing Lab: [address] [phone] [place] [address] [facility] COMPREHE NSIVE METABOLI C PANEL UREA NITROGEN [MASS/VOLU ME] IN SERUM OR PLASMA 22.1 mg/dL 9.0 - 25.0 01/24 Specimen Type: PLASMA Comment: No hemolysis noted. Ordering Provider: MERLINE ESTES Report Released Date/Time: Jan 24, 2024 02:12 PM Reporting Lab: [facility] [address] [place] [phone] Performing Lab: [facility] [address] [place] [phone] [facility] COMPREHE NSIVE METABOLI C PANEL GLUCOSE [MASS/VOLU ME] IN SERUM OR PLASMA 125 mg/dL 72 - 99 01/24 H Specimen Type: PLASMA Comment: No hemolysis noted. Ordering Provider: MERLINE ESTES Report Released Date/Time: Jan 24, 2024 02:12 PM Reporting Lab: [address] [phone] Performing Lab: [address] [phone] [facility] COMPREHE NSIVE METABOLI C PANEL SODIUM [MOLES/VOL UME] IN SERUM OR PLASMA 143 meq/L 136 - 145 01/24 Specimen Type: PLASMA Comment: No hemolysis noted. Ordering Provider: MERLINE ESTES Report Released Date/Time: Jan 24, 2024 02:12 PM Reporting Lab: [facility] [address] [place] [phone] Performing Lab: [address] [phone] [facility] COMPREHE NSIVE METABOLI C PANEL POTASSIUM [MOLES/VOL UME] IN SERUM OR PLASMA 3.8 meq/L 3.5 - 5 01/24 Specimen Type: PLASMA Comment: No hemolysis noted. Ordering Provider: MERLINE ESTES Report Released Date/Time: Jan 24, 2024 02:12 PM Reporting Lab: [facility] [address] [place] [phone] Performing Lab: [address] [phone] [facility] COMPREHE NSIVE METABOLI C PANEL CHLORIDE [MOLES/VOL UME] IN SERUM OR PLASMA 112 meq/L 98 - 107 01/24 H Specimen Type: PLASMA Comment: No hemolysis noted. Ordering Provider: MERLNIE ESTES Report Released Date/Time: Jan 24, 2024 02:12 PM Reporting Lab: [facility] [address] [place] [phone] Performing Lab: [facility] [address] [place] [phone] [facility] COMPREHE NSIVE METABOLI C PANEL CARBON DIOXIDE, TOTAL [MOLES/VOL UME] IN SERUM OR PLASMA 22 meq/L 22 - 31 01/24 Specimen Type: PLASMA Comment: No hemolysis noted. Ordering Provider: MERLINE ESTES Report Released Date/Time: Jan 24, 2024 02:12 PM Reporting Lab: [facility] [address] [place] [phone] Performing Lab: [address] [phone] [facility] COMPREHE NSIVE METABOLI C PANEL CALCIUM [MASS/VOLU ME] IN SERUM OR PLASMA 9.9 mg/dL 8.4 - 10.4 01/24 Specimen Type: PLASMA Comment: No hemolysis noted. Ordering Provider: MERLINE ESTES Report Released Date/Time: Jan 24, 2024 02:12 PM Reporting Lab: [facility] [address] [place] [phone] Performing Lab: [place] [address] [facility] [phone] [facility] COMPREHE NSIVE METABOLI C PANEL PROTEIN [MASS/VOLU ME] IN SERUM OR PLASMA 7.5 g/dL 6 - 8.6 01/24 Specimen Type: PLASMA Comment: No hemolysis noted. Ordering Provider: MERLINE ESTES Report Released Date/Time: Jan 24, 2024 02:12 PM Reporting Lab: [facility] [address] [place] [phone] Performing Lab: [facility] [address] [place] [phone] [facility] COMPREHE NSIVE METABOLI C PANEL ALBUMIN [MASS/VOLU ME] IN SERUM OR PLASMA 4.0 g/dL 3.4 - 5 01/24 Specimen Type: PLASMA Comment: No hemolysis noted. Ordering Provider: MERLINE ESTES Report Released Date/Time: Jan 24, 2024 02:12 PM Reporting Lab: [address] [address] Performing Lab: [address] [phone] [facility] COMPREHE NSIVE METABOLI C PANEL BILIRUBIN. TOTAL [MASS/VOLU ME] IN SERUM OR PLASMA 0.5 mg/dL 0.2 - 1.2 01/24 Specimen Type: PLASMA Comment: No hemolysis noted. Ordering Provider: MERLINE ESTES Report Released Date/Time: Jan 24, 2024 02:12 PM Reporting Lab: [address] [address] Performing Lab: [address] [phone] [place] [address] [facility] COMPREHE NSIVE METABOLI C PANEL ALKALINE PHOSPHATAS E [ENZYMATIC ACTIVITY/V OLUME] IN SERUM OR PLASMA 76 U/L 40 - 150 01/24 Specimen Type: PLASMA Comment: No hemolysis noted. Ordering Provider: MERLINE ESTES Report Released Date/Time: Jan 24, 2024 02:12 PM Reporting Lab: [address] [address] Performing Lab: [address] [phone] [place] [address] [facility] COMPREHE NSIVE METABOLI C PANEL ASPARTATE AMINOTRANS FERASE [ENZYMATIC ACTIVITY/V OLUME] IN SERUM OR PLASMA 15 U/L 5 - 34 01/24 Specimen Type: PLASMA Comment: No hemolysis noted. Ordering Provider: MERLINE ESTES Report Released Date/Time: Jan 24, 2024 02:12 PM Reporting Lab: [facility] [address] [place] [phone] Performing Lab: [address] [address] [facility] COMPREHE NSIVE METABOLI C PANEL ALANINE AMINOTRANS FERASE [ENZYMATIC ACTIVITY/V OLUME] IN SERUM OR PLASMA 9 U/L 8 - 40 01/24 Specimen Type: PLASMA Comment: No hemolysis noted. Ordering Provider: MERLINE ESTES Report Released Date/Time: Jan 24, 2024 02:12 PM Reporting Lab: [address] [address] Performing Lab: [address] [facility] COMPREHE NSIVE METABOLI C PANEL GLOMERULAR FILTRATION RATE/1.73 SQ M.PREDICTE D [VOLUME RATE/AREA] IN SERUM, PLASMA OR BLOOD BY CREATININE -BASED FORMULA (CKD-EPI 2020) 49.6 60 01/24 Specimen Type: PLASMA Comment: No hemolysis noted. Ordering Provider: MERLINE ESTES Report Released Date/Time: Jan 24, 2024 02:12 PM Reporting Lab: [place] [address] Performing Lab: [address] [facility] LIPID PANEL (STL) CHOLESTERO L [MASS/VOLU ME] IN SERUM OR PLASMA 207 mg/dL 0 - 200 01/24 H Specimen Type: PLASMA Comment: No hemolysis noted. Ordering Provider: MERLINE ESTES Report Released Date/Time: Jan 24, 2024 02:12 PM Reporting Lab: [address] [address] Performing Lab: [address] [phone] [place] [address] [facility] LIPID PANEL (STL) TRIGLYCERI DE [MASS/VOLU ME] IN SERUM OR PLASMA 80 mg/dL 0 - 150 01/24 Specimen Type: PLASMA Comment: No hemolysis noted. Ordering Provider: MERLINE ESTES Report Released Date/Time: Jan 24, 2024 02:12 PM Reporting Lab: [place] [address] Performing Lab: [facility] [address] [place] [phone] [facility] LIPID PANEL (STL) CHOLESTERO L IN LDL [MASS/VOLU ME] IN SERUM OR PLASMA BY CALCVIANEY N 150 mg/dL 01/24 Specimen Type: PLASMA Comment: No hemolysis noted. Ordering Provider: MERLINE ESTES Report Released Date/Time: Jan 24, 2024 02:12 PM Reporting Lab: [address] [address] Performing Lab: [address] [address] [facility] LIPID PANEL (STL) CHOLESTERO L IN HDL [MASS/VOLU ME] IN SERUM OR PLASMA 41 mg/dL 40 01/24 Specimen Type: PLASMA Comment: No hemolysis noted. Ordering Provider: MERLINE ESTES Report Released Date/Time: Jan 24, 2024 02:12 PM Reporting Lab: [address] [phone] Performing Lab: [address] [address] [facility] MICRAL/C REAT PROFILE (STL) ALBUMIN [MASS/VOLU ME] IN URINE 87.3 mg/L 01/24 Specimen Type: URINE No comment entered. Ordering Provider: MERLINE ESTES Report Released Date/Time: Jan 24, 2024 02:12 PM Reporting Lab: [facility] [address] [place] [phone] Performing Lab: [address] [address] [facility] MICRAL/C REAT PROFILE (STL) ALBUMIN/CR EATININE [MASS RATIO] IN URINE 30 mg/g 0 - 29 01/24 H Specimen Type: URINE No comment entered. Ordering Provider: MERLINE ESTES Report Released Date/Time: Jan 24, 2024 02:12 PM Reporting Lab: [facility] [address] [place] [phone] Performing Lab: [address] [address] [facility] MICRAL/C REAT PROFILE (STL) CREATININE [MASS/VOLU ME] IN URINE 294.7 mg/dL 63 - 166 01/24 H Specimen Type: URINE No comment entered. Ordering Provider: MERLINE ESTES Report Released Date/Time: Jan 24, 2024 02:12 PM Reporting Lab: [address] [address] Performing Lab: [place] [phone] [facility] [facility] URIC ACID URATE [MASS/VOLU ME] IN SERUM OR PLASMA 8.9 mg/dL 3.5 - 7.2 01/24 H Specimen Type: PLASMA Comment: No hemolysis noted. Ordering Provider: MERLINE ESTES Report Released Date/Time: Jan 24, 2024 02:12 PM Reporting Lab: [address] [address] Performing Lab: [place] [phone] [facility] URINALYS IS W/ CX REFLEX (STL-PB) COLOR OF URINE Yellow 01/24 Specimen Type: URINE No comment entered. Ordering Provider: MERLINE ESTES Report Released Date/Time: Jan 24, 2024 02:12 PM Reporting Lab: [address] [address] Performing Lab: [address] [phone] [facility] [facility] URINALYS IS W/ CX REFLEX (STL-PB) BILIRUBIN. TOTAL [PRESENCE] IN URINE BY TEST STRIP Negative mg/dL 01/24 Specimen Type: URINE No comment entered. Ordering Provider: MERLINE ESTES Report Released Date/Time: Jan 24, 2024 02:12 PM Reporting Lab: [address] [place] [address] Performing Lab: [place] [phone] [facility] [address] [facility] URINALYS IS W/ CX REFLEX (STL-PB) PH OF URINE BY TEST STRIP 6.0 5.0 - 8.0 01/24 Specimen Type: URINE No comment entered. Ordering Provider: MERLINE ESTES Report Released Date/Time: Jan 24, 2024 02:12 PM Reporting Lab: [place] [phone] Performing Lab: [place] [phone] [facility] URINALYS IS W/ CX REFLEX (STL-PB) LEUKOCYTES [#/AREA] IN URINE SEDIMENT BY MICROSCOPY HIGH POWER FIELD 16 /[HPF] 0 - 5 01/24 H Specimen Type: URINE No comment entered. Ordering Provider: MERLINE ESTES Report Released Date/Time: Jan 24, 2024 02:12 PM Reporting Lab: [place] [phone] Performing Lab: [place] [phone] [facility] [facility] URINALYS IS W/ CX REFLEX (STL-PB) ERYTHROCYT ES [#/VOLUME] IN URINE SEDIMENT BY MICROSCOPY HIGH POWER FIELD 3 /[HPF] 0 - 5 01/24 Specimen Type: URINE No comment entered. Ordering Provider: MERLINE ESTES Report Released Date/Time: Jan 24, 2024 02:12 PM Reporting Lab: [place] [phone] Performing Lab: [place] [phone] [facility] URINALYS IS W/ CX REFLEX (STL-PB) APPEARANCE OF URINE Clear 01/24 Specimen Type: URINE No comment entered. Ordering Provider: MERLINE ESTES Report Released Date/Time: Jan 24, 2024 02:12 PM Reporting Lab: [facility] [address] [place] [phone] Performing Lab: [address] [phone] [place] [address] [facility] URINALYS IS W/ CX REFLEX (STL-PB) NITRITE [PRESENCE] IN URINE BY TEST STRIP Negative mg/dL 01/24 Specimen Type: URINE No comment entered. Ordering Provider: MERLINE ESTES Report Released Date/Time: Jan 24, 2024 02:12 PM Reporting Lab: [place] [phone] Performing Lab: [address] [facility] URINALYS IS W/ CX REFLEX (STL-PB) BACTERIA [PRESENCE] IN URINE SEDIMENT BY LIGHT MICROSCOPY RARE/[HP F] 01/24 Specimen Type: URINE No comment entered. Ordering Provider: MERLINE ESTES Report Released Date/Time: Jan 24, 2024 02:12 PM Reporting Lab: [address] [address] Performing Lab: [place] [phone] [facility] URINALYS IS W/ CX REFLEX (STL-PB) MUCUS [PRESENCE] IN URINE SEDIMENT BY LIGHT MICROSCOPY RARE/[LP F] 01/24 Specimen Type: URINE No comment entered. Ordering Provider: MERLINE ESTES Report Released Date/Time: Jan 24, 2024 02:12 PM Reporting Lab: [facility] [address] [place] [phone] Performing Lab: [place] [phone] [facility] URINALYS IS W/ CX REFLEX (STL-PB) HYALINE CASTS [#/AREA] IN URINE SEDIMENT BY MICROSCOPY LOW POWER FIELD 18 /[LPF] 0 - 5 01/24 Specimen Type: URINE No comment entered. Ordering Provider: MERLINE ESTES Report Released Date/Time: Jan 24, 2024 02:12 PM Reporting Lab: [place] [address] Performing Lab: [address] [phone] [facility] [facility] URINALYS IS W/ CX REFLEX (STL-PB) GLUCOSE [MASS/VOLU ME] IN URINE BY TEST STRIP Normalmg /dL 01/24 Specimen Type: URINE No comment entered. Ordering Provider: MERLINE ESTES Report Released Date/Time: Jan 24, 2024 02:12 PM Reporting Lab: [place] [address] Performing Lab: [address] [facility] URINALYS IS W/ CX REFLEX (STL-PB) PROTEIN [MASS/VOLU ME] IN URINE BY TEST STRIP 30 mg/dL 01/24 H Specimen Type: URINE No comment entered. Ordering Provider: MERLINE ESTES Report Released Date/Time: Jan 24, 2024 02:12 PM Reporting Lab: [place] [address] Performing Lab: [address] [facility] URINALYS IS W/ CX REFLEX (STL-PB) URN.UROBIL INOGEN Normalmg /dL 01/24 Specimen Type: URINE No comment entered. Ordering Provider: MERLINE ESTES Report Released Date/Time: Jan 24, 2024 02:12 PM Reporting Lab: [place] [address] Performing Lab: [address] [phone] [facility] [facility] URINALYS IS W/ CX REFLEX (STL-PB) HEMOGLOBIN [MASS/VOLU ME] IN URINE BY TEST STRIP Negative mg/dL 01/24 Specimen Type: URINE No comment entered. Ordering Provider: MERLINE ESTES Report Released Date/Time: Jan 24, 2024 02:12 PM Reporting Lab: [place] [address] Performing Lab: [address] [facility] URINALYS IS W/ CX REFLEX (STL-PB) KETONES [MASS/VOLU ME] IN URINE BY TEST STRIP Negative mg/dL 01/24 Specimen Type: URINE No comment entered. Ordering Provider: MERLINE ESTES Report Released Date/Time: Jan 24, 2024 02:12 PM Reporting Lab: [place] [address] Performing Lab: [address] [facility] URINALYS IS W/ CX REFLEX (STL-PB) URN.LEUK.E ST. 250 mg/dL 01/24 H Specimen Type: URINE No comment entered. Ordering Provider: MERLINE ESTES Report Released Date/Time: Jan 24, 2024 02:12 PM Reporting Lab: [place] [address] Performing Lab: [address] [facility] URINALYS IS W/ CX REFLEX (STL-PB) SPECIFIC GRAVITY OF URINE 1.026 01/24 Specimen Type: URINE No comment entered. Ordering Provider: MERLINE ESTES Report Released Date/Time: Jan 24, 2024 02:12 PM Reporting Lab: [place] [address] Performing Lab: [address] [facility] URINALYS IS W/ CX REFLEX (STL-PB) *URINE FOR REFLEX CULTURE CX ORDERED AND SENT TO [facility] 01/24 Specimen Type: URINE No comment entered. Ordering Provider: MERLINE ESTES Report Released Date/Time: Jan 24, 2024 02:12 PM Reporting Lab: [place] [address] Performing Lab: [address] [phone] [facility] VITAMIN D, 25-HYDRO XY 25-HYDROXY VITAMIN D3 [MASS/VOLU ME] IN SERUM OR PLASMA 20.9 ng/mL 30 - 96 01/24 L Specimen Type: SERUM No comment entered. Ordering Provider: MERLINE ESTES Report Released Date/Time: Jan 24, 2024 02:12 PM Reporting Lab: [place] [address] Performing Lab: [address] [facility] GLUCOSE, BLOOD-po ct (STL) GLUCOSE [MASS/VOLU ME] IN BLOOD BY AUTOMATED TEST STRIP 99 mg/dL 72 - 99 01/23 Specimen Type: BLOOD Comment: Test Performed by: [id number] Meter #: [id number] Ordering Provider: NILA DYER Report Released Date/Time: Jan 24, 2024 02:10 PM Reporting Lab: [facility] [address] [place] [phone] Performing Lab: [facility] [address] [place] [phone] [place] [address] [facility] COMPREHE NSIVE METABOLI C PANEL CREATININE [MASS/VOLU ME] IN SERUM OR PLASMA 1.22 mg/dL 0.7 - 1.3 09/10 Specimen Type: PLASMA Comment: No hemolysis noted. Ordering Provider: SUJATA POOLE Report Released Date/Time: Sep 11, 2023 03:16 PM Reporting Lab: [place] [phone] Performing Lab: [address] [phone] [place] [address] [facility] COMPREHE NSIVE METABOLI C PANEL UREA NITROGEN [MASS/VOLU ME] IN SERUM OR PLASMA 22.4 mg/dL 9.0 - 25.0 09/10 Specimen Type: PLASMA Comment: No hemolysis noted. Ordering Provider: SUJATA POOLE Report Released Date/Time: Sep 11, 2023 03:16 PM Reporting Lab: [facility] [address] [facility] [place] [address] Performing Lab: [facility] [address] [place] [phone] [place] [address] COMPREHE NSIVE METABOLI C PANEL GLUCOSE [MASS/VOLU ME] IN SERUM OR PLASMA 107 mg/dL 72 - 99 09/10 H Specimen Type: PLASMA Comment: No hemolysis noted. Ordering Provider: SUJATA POOLE Report Released Date/Time: Sep 11, 2023 03:16 PM Reporting Lab: [place] [address] [facility] [place] [address] Performing Lab: [place] [address] [facility] [phone] [facility] COMPREHE NSIVE METABOLI C PANEL SODIUM [MOLES/VOL UME] IN SERUM OR PLASMA 142 meq/L 136 - 145 09/10 Specimen Type: PLASMA Comment: No hemolysis noted. Ordering Provider: SUJATA POOLE Report Released Date/Time: Sep 11, 2023 03:16 PM Reporting Lab: [address] [phone] Performing Lab: [place] [address] [facility] [address] [facility] COMPREHE NSIVE METABOLI C PANEL POTASSIUM [MOLES/VOL UME] IN SERUM OR PLASMA 4.0 meq/L 3.5 - 5 09/10 Specimen Type: PLASMA Comment: No hemolysis noted. Ordering Provider: SUJATA POOLE Report Released Date/Time: Sep 11, 2023 03:16 PM Reporting Lab: [address] [phone] Performing Lab: [address] [place] [address] [facility] COMPREHE NSIVE METABOLI C PANEL CHLORIDE [MOLES/VOL UME] IN SERUM OR PLASMA 109 meq/L 98 - 107 09/10 H Specimen Type: PLASMA Comment: No hemolysis noted. Ordering Provider: SUJATA POOLE Report Released Date/Time: Sep 11, 2023 03:16 PM Reporting Lab: [place] [address] [facility] [address] Performing Lab: [place] [address] [facility] [address] [facility] COMPREHE NSIVE METABOLI C PANEL CARBON DIOXIDE, TOTAL [MOLES/VOL UME] IN SERUM OR PLASMA 26 meq/L 22 - 31 09/10 Specimen Type: PLASMA Comment: No hemolysis noted. Ordering Provider: SUJATA POOLE Report Released Date/Time: Sep 11, 2023 03:16 PM Reporting Lab: [place] [address] [facility] [address] Performing Lab: [place] [address] [facility] [address] [facility] COMPREHE NSIVE METABOLI C PANEL CALCIUM [MASS/VOLU ME] IN SERUM OR PLASMA 10.1 mg/dL 8.4 - 10.4 09/10 Specimen Type: PLASMA Comment: No hemolysis noted. Ordering Provider: SUJATA POOLE Report Released Date/Time: Sep 11, 2023 03:16 PM Reporting Lab: [place] [address] [facility] [address] Performing Lab: [place] [address] [facility] [address] [facility] COMPREHE NSIVE METABOLI C PANEL PROTEIN [MASS/VOLU ME] IN SERUM OR PLASMA 7.2 g/dL 6 - 8.6 09/10 Specimen Type: PLASMA Comment: No hemolysis noted. Ordering Provider: SUJATA POOLE Report Released Date/Time: Sep 11, 2023 03:16 PM Reporting Lab: [address] [address] Performing Lab: [place] [address] [facility] [address] [facility] COMPREHE NSIVE METABOLI C PANEL ALBUMIN [MASS/VOLU ME] IN SERUM OR PLASMA 3.9 g/dL 3.4 - 5 09/10 Specimen Type: PLASMA Comment: No hemolysis noted. Ordering Provider: SUJATA POOLE Report Released Date/Time: Sep 11, 2023 03:16 PM Reporting Lab: [address] [address] Performing Lab: [address] [address] [facility] COMPREHE NSIVE METABOLI C PANEL BILIRUBIN. TOTAL [MASS/VOLU ME] IN SERUM OR PLASMA 0.8 mg/dL 0.2 - 1.2 09/10 Specimen Type: PLASMA Comment: No hemolysis noted. Ordering Provider: SUJATA POOLE Report Released Date/Time: Sep 11, 2023 03:16 PM Reporting Lab: [address] [address] Performing Lab: [place] [address] [facility] [address] [facility] COMPREHE NSIVE METABOLI C PANEL ALKALINE PHOSPHATAS E [ENZYMATIC ACTIVITY/V OLUME] IN SERUM OR PLASMA 79 U/L 40 - 150 09/10 Specimen Type: PLASMA Comment: No hemolysis noted. Ordering Provider: SUJATA POOLE Report Released Date/Time: Sep 11, 2023 03:16 PM Reporting Lab: [address] [address] Performing Lab: [address] [address] [facility] COMPREHE NSIVE METABOLI C PANEL ASPARTATE AMINOTRANS FERASE [ENZYMATIC ACTIVITY/V OLUME] IN SERUM OR PLASMA 20 U/L 5 - 34 09/10 Specimen Type: PLASMA Comment: No hemolysis noted. Ordering Provider: SUJATA POOEL Report Released Date/Time: Sep 11, 2023 03:16 PM Reporting Lab: [facility] [address] [facility] [place] [address] Performing Lab: [facility] [address] [facility] [address] [facility] COMPREHE NSIVE METABOLI C PANEL ALANINE AMINOTRANS FERASE [ENZYMATIC ACTIVITY/V OLUME] IN SERUM OR PLASMA 14 U/L 8 - 40 09/10 Specimen Type: PLASMA Comment: No hemolysis noted. Ordering Provider: SUJATA POOLE Report Released Date/Time: Sep 11, 2023 03:16 PM Reporting Lab: [facility] [address] [facility] [place] [address] Performing Lab: [address] [phone] [place] [address] COMPREHE NSIVE METABOLI C PANEL GLOMERULAR FILTRATION RATE/1.73 SQ M.PREDICTE D [VOLUME RATE/AREA] IN SERUM, PLASMA OR BLOOD BY CREATININE -BASED FORMULA (CKD-EPI 2020) 63.0 60 09/10 Specimen Type: PLASMA Comment: No hemolysis noted. Ordering Provider: SUJATA POOLE Report Released Date/Time: Sep 11, 2023 03:16 PM Reporting Lab: [facility] [address] [facility] [place] [address] Performing Lab: [facility] [address] [facility] [address] [facility] URIC ACID URATE [MASS/VOLU ME] IN SERUM OR PLASMA 9.8 mg/dL 3.5 - 7.2 09/10 H Specimen Type: PLASMA Comment: No hemolysis noted. Ordering Provider: SUJATA POOLE Report Released Date/Time: Sep 11, 2023 03:16 PM Reporting Lab: [facility] [address] [facility] [address] Performing Lab: [facility] [address] [facility] [address] [facility] Vital Signs Combined list of inpatient and outpatient Vital Signs from Department of Defense and Veterans Affairs, ranging from 12 months to all on record, depending upon the facility. Vital Sign Value Date Comments Source SYSTOLIC BLOOD PRESSURE 130 04/15/2024 13:16:24 [facility] DIASTOLIC BLOOD PRESSURE 76 04/15/2024 13:16:24 [facility] PULSE OXIMETRY 97 04/15/2024 13:16:24 [facility] WEIGHT 409 04/15/2024 13:16:24 [facility] BMI 57 kg/m2 04/15/2024 13:16:24 [facility] PAIN 4 04/15/2024 13:16:24 [facility] HEIGHT 71 04/15/2024 13:16:24 [facility] TEMPERATURE 97.7 04/15/2024 13:16:24 [facility] PULSE 87 04/15/2024 13:16:24 [facility] RESPIRATION 18 04/15/2024 13:16:24 [facility] SYSTOLIC BLOOD PRESSURE 170 04/05/2024 09:40:00 [facility] DIASTOLIC BLOOD PRESSURE 90 04/05/2024 09:40:00 [facility] PAIN 3 04/05/2024 09:40:00 [facility] TEMPERATURE 98 04/05/2024 09:40:00 [facility] PULSE 80 04/05/2024 09:40:00 [facility] RESPIRATION 18 04/05/2024 09:40:00 [facility] SYSTOLIC BLOOD PRESSURE 146 04/03/2024 11:28:55 [facility] DIASTOLIC BLOOD PRESSURE 80 04/03/2024 11:28:55 [facility] PULSE OXIMETRY 95 04/03/2024 11:28:55 [facility] PAIN 0 04/03/2024 11:28:55 [facility] TEMPERATURE 98.4 04/03/2024 11:28:55 [facility] PULSE 75 04/03/2024 11:28:55 [facility] RESPIRATION 18 04/03/2024 11:28:55 [facility] SYSTOLIC BLOOD PRESSURE 163 01/24/2024 13:40:00 [facility] DIASTOLIC BLOOD PRESSURE 90 01/24/2024 13:40:00 [facility] PULSE OXIMETRY 96 01/24/2024 13:40:[address] [facility] WEIGHT 415.1 01/24/2024 13:40:00 [facility] BMI 58 kg/m2 01/24/2024 13:40:00 [facility] PAIN 0 01/24/2024 13:40:00 [facility] TEMPERATURE 97.8 01/24/2024 13:40:00 [facility] PULSE 71 01/24/2024 13:40:00 [facility] RESPIRATION 16 01/24/2024 13:40:00 [facility] SYSTOLIC BLOOD PRESSURE 138 12/24/2023 14:48:19 [facility] DIASTOLIC BLOOD PRESSURE 85 12/24/2023 14:48:19 [facility] PULSE OXIMETRY 95 12/24/2023 14:48:19 [facility] WEIGHT 421.9 12/24/2023 14:48:19 [facility] BMI 59 kg/m2 12/24/2023 14:48:19 [facility] PAIN 6 12/24/2023 14:48:19 [facility] TEMPERATURE 98.1 12/24/2023 14:48:19 [facility] PULSE 73 12/24/2023 14:48:19 [facility] RESPIRATION 16 12/24/2023 14:48:19 [facility] Encounters Combined list of: 1) Encounters from Department of [facility] Affairs facilities going backup to the last 18 months, not all [place] inpatient encounters are included; 2) Encounters from the Department of Defense facilities going backup to 280 months. Location Location Details Encounter Type Encounter Number Reason For Visit Attending Provider ADM Date DC Date Status Disposition Source [facility] Outpatient Encounter [id number] 11/23 [facility] OFF/[place] CONSLTJ [place] 55 [id number] Diagnos is: ICD-10- CM M10.9 Gout, unspeci ELVI Jeffries M 11/29 [facility] EYE EXAM NEW PATIENT [id number] Diagnos is: ICD-10- CM E11.9 Type 2 diabete s mellitu s without complic ations Bigg TONG 12/27 [facility] SELF CARE MNGMENT TRAINING [id number] Diagnos is: ICD-10- CM M17.0 Bilater al primary osteoar thritis of knee FLINT,ANDR EW H 01/01 [facility] OFFICE O/P EST HI 40-54 MIN [id number] Diagnos is: ICD-10- CM M10.9 Gout, unspeci fied ELVI POOLE M 01/24 [facility] QNHP OL DIG ASSMT&MGMT 5-10 [id number] [id number] Diagnos is: ICD-10- CM M10.9 Gout, unspeci fied KVNG VEGA P 01/25 [facility] Outpatient Encounter [id number] 02/01 [facility] Outpatient Encounter [id number] 02/02 [facility] HC PRO PHONE CALL 21-30 MIN [id number] [id number] Diagnos is: ICD-10- CM M17.0 Bilater al primary osteoar thritis of knee GREG BELL L 02/05 [facility] OFFICE O/P EST LOW 20-29 MIN [id number] [id number] 3 Diagnos is: ICD-10- CM B35.1 Tinea unguium MICHELINE LOU 02/07 [facility] Outpatient Encounter [id number] 02/12 [facility] HLTH BHV ASSMT/REAS SESSMENT [id number] [id number] 2 Diagnos is: ICD-10- CM Z63.6 Depende nt relativ e needing care at home HILL ESTES 02/15 [facility] PROGRAM INTAKE ASSESSMENT 55529-7.65 [id number] 2 Diagnos is: ICD-10- CM M10.9 Gout, unspeci fied MANDORCA,L LOUIE L 02/20 [facility] Outpatient Encounter [id number] 2 02/21 [facility] Outpatient Encounter [id number] CATERINA JESUS 03/06 [facility] Outpatient Encounter [id number] [id number] DWAYNE HERNANDEZ A 03/06 [facility] Outpatient Encounter [id number] [id number] 03/29 [facility] HC PRO PHONE CALL 5-10 MIN 02993-6.65 [id number] Diagnos is: ICD-10- CM R26.2 Difficu lty in walking , not elsewhe re classif ied JLUIOCESARSHAVON Giulia 04/30 [facility] Outpatient Encounter [id number] [id number] 05/08 [facility] OFFICE O/P EST LOW 20 MIN [id number] [id number] 5 Diagnos is: ICD-10- CM B35.1 Tinea unguium MICHELINE LOU 05/08 [facility] OFFICE O/P EST MOD 30 MIN [id number] [id number] 7 Diagnos is: ICD-10- CM M10.9 Gout, unspeci fied POOLEELVI Chowdhury M 05/08 [facility] Outpatient Encounter [id number] [id number] 8 05/08 [facility] OFFICE O/P EST LOW 20 MIN 58531-7.65 [id number] 005 Diagnos is: ICD-10- CM I10 Essenti al (primar y) hyperte nsion Alicia ESTES L 05/10 [facility] Outpatient Encounter [id number] Diagnos is: ICD-10- CM 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 TRISTIAN Villalobos 05/15 [facility] OFF/OP CNSLTJ NEW/EST LOW 30 [id number] Diagnos is: ICD-10- CM 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 OFFICE O/P EST HI 40 MIN [id number] [id number] Diagnos is: ICD-10- CM M10.9 Gout, unspeci fied ELVI POOLE M 09/10 [facility] Outpatient Encounter [id number] 11/06 [facility] OFFICE O/P EST LOW 20 MIN [id number] Diagnos is: ICD-10- CM I10 Essenti al (primar y) hyperte nsion Alicia ESTES KEYA L 11/06 [facility] Outpatient Encounter [id number] Alicia ESTES KEYA L 11/07 [facility] PRO PHONE CALL 11-20 MIN [id number] Diagnos is: ICD-10- CM I10 Essenti al (primar y) hyperte elaine JUAN MANUEL COCHRAN P 11/07 [facility] Outpatient Encounter [id number] 11/12 [facility] Outpatient Encounter [id number] JUAN MANUEL COCHRAN P 11/12 [facility] PRO PHONE CALL 21-30 MIN [id number] [id number] Diagnos is: ICD-10- CM I10 Essenti al (primar y) hyperte elaine JUAN MANUEL COCHRAN P 11/12 [facility] Outpatient Encounter [id number] 11/12 [facility] PRO PHONE CALL 5-10 MIN [id number] [id number] Diagnos is: ICD-10- CM I10 Essenti al (primar y) hyperte elaine JUAN MANUEL COCHRAN P 11/18 [facility] Outpatient Encounter [id number] 12/05 [facility] [place] [id number] [id number] Diagnos is: ICD-10- CM E66.01 Morbid (severe ) obesity due to excess calorie s ZOILAREJISANDRO Peñaloza Edwar 12/10 [facility] OFFICE O/P EST MOD 30 MIN [id number] Diagnos is: ICD-10- CM M10.9 Gout, unspeci juan GEEANDYves CHOI 12/23 [facility] OFFICE O/P EST MOD 30 MIN [id number] [id number] Diagnos is: ICD-10- CM I10 Essenti al (primar y) hyperte JUAN MANUEL Sparrow 12/30 [facility] PRO PHONE CALL 11-20 MIN [id number] [id number] Diagnos is: ICD-10- CM I10 Essenti al (primar y) hyperte JUAN MANUEL Sparrow P 01/01 [facility] Outpatient Encounter [id number] 01/06 [facility] OFFICE O/P EST LOW 20 MIN [id number] Diagnos is: ICD-10- CM I10 Essenti al (primar y) hyperte Alicia Liz 01/23 [facility] OFFICE O/P EST MOD 30 MIN [id number] [id number] Diagnos is: ICD-10- CM I10 Essenti al (primar y) hyperte JUAN MANUEL Sparrow P 01/28 [facility] Outpatient Encounter [id number] 01/28 [facility] PRO PHONE CALL 11-20 MIN [id number] [id number] Diagnos is: ICD-10- CM I10 Essenti al (primar y) hyperte elaine JUAN MANUEL COCHRAN P 01/31 [facility] QNHP OL DIG ASSMT&MGMT 5-10 [id number] [id number] 3 Diagnos is: ICD-10- CM M10.9 Gout, unspeci fiKVNG Cabrera P 02/05 [facility] PRO PHONE CALL 5-10 MIN [id number] [id number] Diagnos is: ICD-10- CM I10 Essenti al (primar y) hyperte elaine JUAN MANUEL COCHRAN P 02/12 [facility] OFFICE O/P EST LOW 20 MIN [id number] [id number] Diagnos is: ICD-10- CM H25.13 Age-rel ated nuclear catarac t, bilater al LEYSE RAHMAN TTHEW C 02/17 [facility] Outpatient Encounter [id number] [id number] 02/17 [facility] MTMS BY PHARM GLASS [employer] MEMBER 15 MIN [id number] [id number] Diagnos is: ICD-10- CM E78.5 Hyperli pidemia , unspeci Bigg Hawthorne B 02/19 [facility] Outpatient Encounter [id number] [id number] 02/23 [facility] Outpatient Encounter [id number] 02/23 [facility] Outpatient Encounter [id number] 02/26 [facility] OFFICE O/P EST MOD 30 MIN [id number] [id number] Diagnos is: ICD-10- CM I10 Essenti al (primar y) hyperte elaine COCHRANJUAN MANUEL P 02/26 [facility] MTMS BY PHARM EST 15 MIN [id number] Diagnos is: ICD-10- CM E78.5 Hyperli pidemia , unspeci fiBigg Helms 03/06 [facility] HC PRO PHONE CALL 5-10 MIN [id number] [id number] Diagnos is: ICD-10- CM I10 Essenti al (primar y) hyperte elaine COCHRANJUAN MANUEL P 03/11 [facility] Outpatient Encounter [id number] 03/13 [facility] OFFICE O/P EST MOD 30 MIN [id number] [id number] Diagnos is: ICD-10- CM I10 Essenti al (primar y) hyperte elaine COCHRAN JUAN MANUEL P 03/31 [facility] OFFICE O/P EST LOW 20 MIN [id number] Diagnos is: ICD-10- CM J20.9 Acute bronchi tis, unspeci DORIAN Bhat 04/03 [facility] PT EDUCATION NOC INDIVID [id number] [id number] Diagnos is: ICD-10- CM R09.81 Nasal congest thalia BERKOWITZ ARM MATTHEW 04/03 [facility] Outpatient Encounter [id number] [id number] Herlinda FREITAS A 04/05 [facility] EMERGENCY DEPT VISIT MOD MDM [id number] [id number] Diagnos is: ICD-10- CM M19.90 Unspeci fied osteoar thritis , unspeci fied site Herlinda FREITASIN A 04/05 [facility] Outpatient Encounter [id number] [id number] Herlinda FREITAS A 04/05 [facility] Outpatient Encounter [id number] 04/08 [facility] Outpatient Encounter [id number] [id number] 04/14 [facility] OFF/OP EST JULY X REQ PHY/QHP [id number] [id number] Diagnos is: ICD-10- CM I10 Essenti al (primar y) hyperte nsJOSELINE Zhu 04/15 [facility] Outpatient Encounter [id number] 04/16 [facility] MTMS BY PHARM EST 15 MIN [id number] Diagnos is: ICD-10- CM E78.5 Hyperli pidemia , unspeci fied Bigg CASILALS B 04/16 [facility] Outpatient Encounter [id number] 04/18 [facility] Outpatient Encounter [id number] 04/24 [facility] Outpatient Encounter [id number] 04/25 [facility] PH1 ASSMT&MGMT NQHP 5-10 [id number] [id number] Diagnos is: ICD-10- CM I10 Essenti al (primar y) hyperte JUAN MANUEL Sparrow P 04/25 [facility] OFFICE O/P EST MOD 30 MIN [id number] Diagnos is: ICD-10- CM I10 Essenti al (primar y) hyperte JUAN MANUEL Sparrow P 05/02 [facility] Outpatient Encounter [id number] MIGUEL NICE 05/15 [facility] Social History Combined list of available smoking, tobacco, and other social history from Department of Defense and Veterans Affairs facilities. Social History Type Response Date Comment Sour e Tobacco smoking status [facility] VA-TOBACCO FORMER USER 05/10/2023 [facility] History of tobacco use PR-TOBACCO QUIT 1 5 YRS OR MORE 05/10/2023 [facility] History of tobacco use VA-TOBACCO NEVER USED 06/06/2022 [facility] History of tobacco use PR-TOBACCO QUIT 1 5 YRS OR MORE 03/15/2020 [facility] History of tobacco use VA-TOBACCO NEVER USED 01/29/2018 [facility] History of tobacco use LIFETIME NON-USER OF TOBACCO 10/12/2016 [facility] History of tobacco use LIFETIME NON-USER OF TOBACCO 08/02/2015 [facility] History of tobacco use LIFETIME NON-USER OF TOBACCO 10/22/2014 [facility] History of tobacco use QUIT TOBACCO >7 Y EARS AGO 01/08/2009 [facility] Plan of Care List of future care activities from Department of [facility] facilities. Additional future care activities may be listed in the Assessment and Plan section. Date/Time Care Activity Care Activity Detail Facili ty 05/23/2024 AMBULATORY - MEDICINE AMBULATORY - MEDICI NE [facility] 06/02/2024 AMBULATORY - MEDICINE AMBULATORY - MEDICI NE [facility] 06/26/2024 AMBULATORY - MEDICINE AMBULATORY - MEDICI [facility] 07/02/2024 AMBULATORY - NONE AMBULATORY - NONE [facility] Margarito [facility]
--- NOTE | 2024-05-19 07:54 | ED.GENADULT ---
HPI - General Adult General Chief complaint: Extremity Injury, Upper Stated complaint: right hand swelling Time Seen by Provider: 05/19/24 07:04 History of Present Illness HPI narrative: Patient is a 74-year-old male who presents ER with gout flare to right 3rd digit. Ongoing over last 2 days. It is very edematous and he has difficulty with flexion. No trauma. Head similar flare recently and was treated with prednisone. Denies fevers or chills or sweats. Related Data Home Medications ?Medication ?Instructions ?Recorded ?Confirmed ?Last Taken ?Type apixaban 5 mg tablet 5 mg PO BID 04/26/22 01/25/23 Unknown History Allergies Allergy/AdvReac Type Severity Reaction Status Date / Time aspirin Allergy Other Verified 10/07/23 08:51 Review of Systems Constitutional: Constitutional: Reports no additional constitutional complaints Musculoskeletal: Musculoskeletal: Reports no additional musculoskeletal complaints PMFSH Past Medical History Medical History Kidney stones Gout JESSICA (obstructive sleep apnea) Morbid obesity Erectile dysfunction Gout Diabetes HTN (hypertension) Kidney stones Surgical History Surgical History H/O right knee surgery H/O knee surgery Family History Family History Father Cancer Lung cancer Mother Hypertension Alzheimer's dementia Sibling Diabetes mellitus Hypertension Daughter Breast cancer Hypertension Social History Social History Smoking status: Never smoker Second hand tobacco smoke exposure: No Alcohol intake: never Substance use: never Lack of Transportation: No Lack of Food: Never True Current Housing: I Have Housing Concerned About Future Housing: No Difficulty Paying Gas/Electric Bills: No Difficulty Paying for Meds: No Currently Unemployed: YES Education: Associate Degree Difficulty w/ Childcare or Family Care: No Exam Narrative: GENERAL: Well-appearing, well-nourished, and in no acute distress. HEAD: Normocephalic, atraumatic. ENT: Mucous membranes moist. EXTREMITIES: Right hand with sausage digit at the 3rd finger. Mildly warm with tenderness at the MCP and PIP difficulty perform range of motion affected digit due to swelling and pain. SKIN: Warm, dry, no rash. NEURO: Alert and oriented x3. PSYCH: Normal mood and affect. Course Course Emergency Course: [place] here. Discharged with prednisone. Vital Signs Vital signs: Vital Signs Temperature 97.8 F 05/19/24 05:37 Pulse Rate 93 05/19/24 05:37 Respiratory Rate 18 05/19/24 05:37 Blood Pressure 186/92 H 05/19/24 05:37 Pulse Oximetry 97 05/19/24 05:37 Oxygen Delivery Room Air 05/19/24 05:37 Temperature 97.8 F 05/19/24 05:37 Pulse Rate 93 05/19/24 05:37 Respiratory Rate 18 05/19/24 05:37 Blood Pressure 186/92 H 05/19/24 05:37 Pulse Oximetry 97 05/19/24 05:37 Oxygen Delivery Room Air 05/19/24 05:37 Medical Decision Making Vital Signs Vital Signs: Vital Signs Temperature 97.8 F 05/19/24 05:37 Pulse Rate 93 05/19/24 05:37 Respiratory Rate 18 05/19/24 05:37 Blood Pressure 186/92 H 05/19/24 05:37 Pulse Oximetry 97 05/19/24 05:37 Oxygen Delivery Room Air 05/19/24 05:37 Temperature 97.8 F 05/19/24 05:37 Pulse Rate 93 05/19/24 05:37 Respiratory Rate 18 05/19/24 05:37 Blood Pressure 186/92 H 05/19/24 05:37 Pulse Oximetry 97 05/19/24 05:37 Oxygen Delivery Room Air 05/19/24 05:37 Discharge Plan Discharge Clinical Impression: Gout attack Patient Disposition: Home, Self-Care Condition: Stable Instructions: Gout (ED) Additional Instructions: Return the ER if you suffer injury, you have fever over 100.4? F, you have additional concerns. Patient Language: Argentine Prescriptions: New prednisone 50 mg tablet 50 mg PO DAILY Qty: 7 0RF No Action rosuvastatin [Crestor] 10 mg tablet 10 mg PO QHS Qty: 30 4RF apixaban 5 mg tablet 5 mg PO BID ciprofloxacin HCl [Cipro] 500 mg tablet 500 mg PO Q12H Qty: 14 0RF cyclobenzaprine 10 mg tablet 10 mg PO TID PRN (Reason: muscle spasm) Qty: 20 0RF acetaminophen 325 mg tablet 650 mg PO Q6H 5 Days Qty: 40 0RF prednisone 50 mg tablet 50 mg PO DAILY 5 Days Qty: 5 0RF febuxostat 80 mg tablet 80 mg PO DAILY Qty: 90 1RF Farxiga 10 mg tablet 10 mg PO DAILY Qty: 30 2RF clotrimazole-betamethasone 1-0.05 % cream See Rx Instructions .ROUTE .COMPLEX Qty: 45 0RF Dose Instruction: APPLY TOPICALLY TWICE A DAY Rx Instructions: APPLY TOPICALLY TWICE A DAY enalapril maleate 20 mg tablet 20 mg PO DAILY Qty: 90 1RF Ozempic 2 mg/dose (8 mg/3 mL) pen injector See Rx Instructions .ROUTE .COMPLEX Qty: 3 0RF Dose Instruction: INJECT 2MG UNDER THE SKIN ONCE WEEKLY Rx Instructions: INJECT 2MG UNDER THE SKIN ONCE WEEKLY colchicine 0.6 mg tablet 0.6 mg PO DAILY Qty: 90 1RF amlodipine 10 mg tablet 10 mg PO DAILY Qty: 15 0RF Follow-up/Referrals: UNKNOWN,DOCTOR [Primary Care Provider] - 1 Week
[2024-05-19] MEDS: HYDROcodone/acetaminophen (*CRX) 5-325 MG TABLET 1 TAB PO (08:03)
== END 2024-05-19 08:19 | disposition home or self-care (01) ==
PROVIDERS: Emergency Provider Emergency Medicine
DX: M10.9 Gout, unspecified (principal); I10 Essential (primary) hypertension; E66.01 Morbid (severe) obesity due to excess calories; E11.9 Type 2 diabetes mellitus without complications; G47.33 Obstructive sleep apnea (adult) (pediatric); Z87.442 Personal history of urinary calculi; Z79.01 Long term (current) use of anticoagulants; Z79.899 Other long term (current) drug therapy; Z79.85 Long-term (current) use of injectable non-insulin antidiabetic drugs
CPT/HCPCS: 99283; A9270

== ENCOUNTER 2024-07-27 05:02 | Emergency (ER) | payer MEDICARE, SELFPAY ==
--- NOTE | ~2024-07-27 | XR_ITS ---
EXAMINATION: XR hand LT min 3V DATE: 07/27/2024 08:01 INDICATION: Hand swelling TECHNIQUE: Posteroanterior, oblique and lateral views of the left hand were obtained. COMPARISON: None. FINDINGS: Bone alignment is normal. No fracture. Chondrocalcinosis at the wrist and at the third and fifth meta carpophalangeal joints. Polyarticular osteoarthritis at the left hand, moderate severity at the secon d-fourth distal interphalangeal joints and mild at the triscaphe, first carpometacarpal, all of the m etacarpophalangeal and remaining interphalangeal joints. No erosions identified. Prominent soft tissu e swelling centered dorsal to the distal metacarpals. IMPRESSION: 1. Prominent soft tissue swelling centered dorsal to the distal metacarpals of the left hand. No acut e osseous abnormality. 2. 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 Reviewed, dictated and finalized at location A. IMPRESSION: 1. Prominent soft tissue swelling centered dorsal to the distal metacarpals of the left hand. No acute osseous abnormality. 2. Mild to moderate polyarticular osteoarthritis at the left hand with scattere d chondrocalcinosis.
--- OUTSIDE RECORDS SUMMARY | 2024-07-27 05:04 | XMS_ITS | Clinical Summary ---
Author Organization [facility] Address [address] [place] [address] Care Team Providers Care Health Support Specialist Name Role Phone Unavailable Primary Care Provider Unavailabl e Source Comments [facility],non-owned Affiliates and Associated Physician Practices is amultiple site organization consisting of ambulatory clinics and hospital sitesin [place], [place], [place] and [place]. This disclosure is being madepursuant to the Care Everywhere program and may not contain all information available regarding this patient. Last updated 17.[facility] Allergies Active Allergy Reactions Criticality Noted Date Comments Aspirin 09/17/2008 Medications * Be aware that medications may not be up to date on this document. Alwaysverify current medications with the patient. amlodipine (NORVASC) 5 MG tablet Take 5 [...] for Pain. 20 Tab 0 01/18/2014 Active oxyCODONE-aceta minophen (PERCOCET) 7.5-325 MG tablet Take 1 tablet by mouth every 6 hours as needed for Pain 12 tablet 10/30/2019 Active methylPREDNISol one (MEDROL DOSEPAK) 4 MG tablet Take by mouth as directed Follow package insert dosing for six day supply. 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 Not on file Not on file Not on file Last Filed Vital Signs [...] 2001 ZOSTER VACCINE (1 of 2) 2001 AAA SCREENING 02/05/2016 COVID-19 VACCINE (1 - 2023-2 5 season) 2023 DEPRESSION SCREENING 04/02/2024 INFLUENZA VACCINE (Season Ended) 2024 Respiratory Syncytial Virus (RSV) Vaccine Pt: or over 60 yrs (1 - 1-dose 75+ series) 2026 HEPATITIS B VACCINE Aged Out No longe r eligible based on patient's age to complete this topic HIB VACCINE Aged Out No longer eligi ble based on patient's age to complete this topic HPV VACCINE Aged Out No longer eligi ble based on patient's age to complete this topic MENINGOCOCCAL (Group B) VACC INE SHARED DECISION-MAKING Aged Out No longer eligibl e based on patient's age to complete this topic MENINGOCOCCAL GROUPS A/C/Y/W VACCINE Aged Out No longer eligible b ased on patient's age to complete this topic Insurance [facility]NA [facility] Advance Directives * Full Code (Latest Code Status on File) Date Activated Date Inactivated Comments 03/23/2009 11:18 PM 03/25/2009 3:25 AM
[2024-07-27 05:06] VITALS: BP 100/62; PULSE 89; RESP 20; TEMP 36.7; O2SAT 95
--- OUTSIDE RECORDS SUMMARY | 2024-07-27 07:32 | XMS_ITS | Encounter Summary ---
Author Name [facility] Organization [facility] Address [address] [place] [address] Care Team Providers Care Teacher Name Role Phone MARIA DEL ROSARIO ESTES [...] Carrasquillo's Name Patient's Relationship to Policy Carrasquillo MEDICARE (WNR) MEDICARE (M) PART B Feb 01, 2016 PART B [id number] MARIA DEL ROSARIORODNEY [place]ON[place] PATIENT MEDICARE (WNR) MEDICARE (M) PART A Feb 01, 2016 PART A [id number] RODNEY MIX [place] PATIENT MEDICARE (WNR) MEDICARE (M) PART B Feb 01, 2016 PART B [id number] MARIA DEL ROSARIORODNEY [place]ONNIE[place] PATIENT MEDICARE (WNR) MEDICARE (M) PART A Feb 01, 2016 PART A [id number] [phone] RODNEY MIX PATIENT [facility] (WNR) MEDICARE ADVANTAGE [facility](W NR) Jan 01, 2024 [id number] RODNEY MIX PATIENT Selected Encounter This section includes the information on record at [place] for the Encounter. Date/Time Encounter Type Encounter Description Reason Pro vider Source Apr 16, 2024 11:00 AM Outpatient Encounter PRIMARY CARE/MEDICINE IHE Encounter Template Text not used by [place] Plan of Treatment: Future Appointments (+ 6 months) and Future Tests (+/- 45 days) The Plan of Treatment section includes future care activities for the patient from all [place] treatmentfacilities. This section includes future appointments and future orders which are active, pending or scheduled. Future Appointments This section includes appointments that were scheduled to occur 6 months from the date of the Encounter, up to a maximum of 20 appointments. The data comes from all [place] treatment facilities. Appointment Date/Time Appointment Type Appointme nt Facility Name May 23, 2024 02:30 PM AMBULATORY - MEDICINE [facility] Jun 02, 2024 10:30 AM AMBULATORY - MEDICINE [facility] Jun 17, 2024 10:30 AM AMBULATORY - MEDICINE [facility] Jun 26, 2024 03:00 PM AMBULATORY - MEDICINE [facility] Jul 02, 2024 11:00 AM AMBULATORY - NONE [facility] Jul 08, 2024 01:00 PM AMBULATORY - MEDICINE [facility] August 01, 2024 09:00 AM AMBULATORY - REHAB MEDICIN E [facility] Sep 01, 2024 10:30 AM AMBULATORY - MEDICINE [facility] Sep 23, 2024 10:00 AM AMBULATORY - MEDICINE [facility] Sep 30, 2024 01:00 PM AMBULATORY - NONE [facility] Social History: Smoking Status (Most current) and Tobacco Use (All prior to encounter date) This section includes the most current, and the historical, smoking and tobacco- related health factors from the [place] facility where the Encounter took place. Current Smoking Status This section includes the most current smoking, or tobacco-related health factor, from the [place] facility where the Encounter took place. Date/Time Current Smoking Status Ulisses sainz May 10, 2023 10:30 AM VA-TOBACCO FORMER USER [facility] Tobacco Use History This section includes a history of the smoking, or tobacco-related health factors, that were collected on or before the date of the Encounter. The data comes from the [place] facility where the Encounter took place. Date/Time Smoking Status/Tobacco Use Comment F acility May 10, 2023 10:30 AM VA-TOBACCO QUIT 15 YRS OR MORE [facility] Encounter Notes: All associated encounter notes This section contains the clinical notes associated to the Encounter. Date/Time Encounter Note(s) Provider Source Apr 16, 2024 03:58 PM NUTRITION ADMINIST RATIVE NOTE: LOCAL TITLE: NUTRITION ADMINISTRATIVE NOTE [facility] STANDARD TITLE: NUTRITION ADMINISTRATIVE NOTE DATE OF NOTE: APR 16, 2024@15:58 ENTRY DATE: APR 16, 2024@15:58:26 AUTHOR: SANDRO MG EXP COSIGNER: URGENCY: STATUS: COMPLETED did not show for scheduled nutrition appt. No contact letter to be sent. /buzz/ SANDRO MG Clinical Dietitian Signed: 04/16/2024 15:[address] [facility]
--- OUTSIDE RECORDS SUMMARY | 2024-07-27 07:32 | XMS_ITS | Encounter Summary ---
Author Name [facility] [place] [facility] [place] Address [address] [place] [address] Care Team Providers Care De Icer Element Winder Name Role Phone MARIA DEL ROSARIO ESTES [...] Policy [place] MEDICARE (WNR) MEDICARE (M) PART A Feb 01, 2016 PART A [id number] RODNEY MIX PATIENT MEDICARE (WNR) MEDICARE (M) PART A Feb 01, 2016 PART A [id number] R[facility]NEY MIX PATIENT MEDICARE (WNR) MEDICARE (M) PART B Feb 01, 2016 PART B [id number] RODNEY MIX PATIENT MEDICARE (WNR) MEDICARE (M) PART B Feb 01, 2016 PART B [id number] RODNEY MIX PATIENT [facility] (WNR) MEDICARE ADVANTAGE [facility](W NR) Jan 01, 2024 [id number] RODNEY MIX PATIENT Selected Encounter This section includes the information on record at [place] for the Encounter. Date/Time Encounter Type Encounter Description Reason Provider Source Jun 02, 2024 10:30 AM OFFICE O/P EST MOD 30 MIN ENDOCRINOLOGY ICD-10-CM E11.65 Type 2 diabetes mellitus with hyperglycemia CHAD PENA [facility] Encounter Template Text not used by [place] Assessments - Encounter Diagnoses This section includes the primary and secondary diagnoses documented for the Encounter. Date/Time Primary/Secondary Diagnosis Diagnosis Name Provider Source Jun 02, 2024 10:42 AM PRIMARY Type 2 diabetes mellitus with hyperglycemia [facility] Jun 02, 2024 10:42 AM SECONDARY Essential (primary) hypertension [facility] Jun 02, 2024 10:42 AM SECONDARY Hyperlipidemia, unspecified [facility] Jun 02, 2024 10:42 AM SECONDARY Morbid (severe) obesity due to excess calories [facility] Jun 02, 2024 10:42 AM SECONDARY Type 2 diabetes mellitus with other specified complication [facility] Plan of Treatment: Future Appointments (+ 6 months) and Future Tests (+/- 45 days) The Plan of Treatment section includes future care activities for the patient from all [place] treatmentfacilities. This section includes future appointments and future orders which are active, pending or scheduled. Future Appointments This section includes appointments that were scheduled to occur 6 months from the date of the Encounter, up to a maximum of 20 appointments. The data comes from all [place] treatment facilities. Appointment Date/Time Appointment Type Appointme nt Facility Name Jun 17, 2024 10:30 AM AMBULATORY - MEDICINE [facility] Jun 26, 2024 03:00 PM AMBULATORY - MEDICINE [facility] Jul 02, 2024 11:00 AM AMBULATORY - NONE [facility] Jul 08, 2024 01:00 PM AMBULATORY - MEDICINE [facility] August 01, 2024 09:00 AM AMBULATORY - REHAB MEDICIN E [facility] Sep 01, 2024 10:30 AM AMBULATORY - MEDICINE [facility] Sep 23, 2024 10:00 AM AMBULATORY - MEDICINE [facility] Sep 30, 2024 01:00 PM AMBULATORY - NONE [facility] Dec 03, 2024 10:00 AM AMBULATORY - MEDICINE [facility] Active, Pending, and Scheduled Orders This section includes a listing of several types of active, pending, and scheduled orders, including clinic medications orders, diagnostic test orders, procedure orders and consult orders; where the start date of the order is 45 days before the date of the Encounter or 45 days after the date of theEncounter. The data comes from all [place] treatment facilities. Test Date/Time Test Type Test Details Facility Name Jul 08, 2024 12:00 AM Imaging - General Radiology Order HAND,LEFT,3 OR MORE VIEWS LEFT [facility] Jul 08, 2024 12:00 AM Imaging - General Radiology Order HAND,RIGHT,3 OR MORE VIEWS RIGHT [facility] Jul 10, 2024 09:17 AM Consult Order OT OUTPATI ENT CONSULT STL Cons Artist [facility] Jul 10, 2024 09:17 AM Procedure Order CP EMG PRO CEDURE CP EMG PROCEDURE ANNETTE [facility] Vital Signs: All taken on the encounter date This section contains inpatient and outpatient Vital Signs collected on the date of the Encounter. Date/Time Temperature Pulse Blood Pressure Respiratory Rate SP02 Pain Height Weight Body Mass Index Source Jun 02, 2024 09:41 AM 98.2 79 118/73 18 95 4 412 58 [facility] Social History: Smoking Status (Most current) and Tobacco Use (All prior to encounter date) This section includes the most current, and the historical, smoking and tobacco- related health factors from the [place] facility where the Encounter took place. Current Smoking Status This section includes the most current smoking, or tobacco-related health factor, from the [place] facility where the Encounter took place. Date/Time Current Smoking Status Ulisses sainz Jun 06, 2022 10:00 AM VA-TOBACCO NEVER USED [facility] Tobacco Use History This section includes a history of the smoking, or tobacco-related health factors, that were collected on or before the date of the Encounter. The data comes from the [place] facility where the Encounter took place. Date/Time Smoking Status/Tobacco Use Comment F acility Mar 15, 2020 02:00 PM VA-TOBACCO FORMER USER [facility] Mar 15, 2020 02:00 PM VA-TOBACCO QUIT 15 YRS OR MORE [facility] Jan 29, 2018 10:49 AM VA-TOBACCO NEVER USED [facility] Oct 12, 2016 09:53 AM LIFETIME NON-USER OF TOBACCO [facility] August 02, 2015 10:40 AM LIFETIME NON-USER OF TOBACCO [facility] Oct 22, 2014 09:50 AM LIFETIME NON-USER OF TOBACCO [facility] Jan 08, 2009 08:24 AM QUIT TOBACCO >7 YEARS AGO [facility] Encounter Notes: All associated encounter notes This section contains the clinical notes associated to the Encounter. Date/Time Encounter Note(s) Provider Source Jun 02, 2024 09:38 AM ENDOCRINOLOGY OUTPATIENT NOTE: LOCAL TITLE: ENDOCRINOLOGY OUTPATIENT FOLLOW UP [facility] STANDARD TITLE: ENDOCRINOLOGY OUTPATIENT NOTE DATE OF NOTE: JUN 02, 2024@09:38 ENTRY DATE: JUN 02, 2024@09:38:06 AUTHOR: NITESH PENA EXP COSIGNER: URGENCY: STATUS: COMPLETED 74 years old AA male seen September 2022 for type 2 diabetes. Patient seen by Dr. Patiño for obesity in 2019. Also has history of HTN, HLD, gout, hx of DVT took apixaban,d'cd 05/15/2023. Duration of diabetes: 5 to 10 years Last visit May 2023, plan was to consider tirzepatide if completes [place] prerequisites for weight loss medication 11/23/2023: No-show S:Trigger finger right hand middle finger also left hand,to see rheumatology today,saw CC,was given two shots (pain & steroid) otherwise feels well. Sometimes tired. Uses walker to get around infrequently uses cane Currently not taking any medications for diabetes, at last visit was on empagliflozin 12.5 mg daily Informed that blood sugar has been high lowest glucose 260? but mostly 160-190 CPRS reviewed Collection sample: URINE,CLEAN CATCH Collection date: Jan 25, 2024 14:25 Site/Specimen: URINE Jan 31, 2024 11:51 * BACTERIOLOGY FINAL REPORT => Jan 31, 2024 11:53 TECH CODE: [id number] CULTURE RESULTS: ENTEROCOCCUS FAECALIS - Quantity: >50,000 - <75,000 CFU/ML Comment: SENSITIVITIES PENDING 01/27/24 RS. DAPTOMYCIN LUCILA 0.75 = SENSITIVE SENSITIVITIES VIA KB: Patient not sure as to why urine culture was done, denies any symptoms of urinary tract infection Mr. Mix discontinued OZEMPIC April 2023 due to constipation (dose was increased to 2mg/week by outside pcp,did help some w/weight loss/decreased appetite) Prescribed Metformin earlier May 2023, it was noted that he was not taking it as it made him feel weak Hypoglycemia: none 05/23/24 112/76 (13:52) 79 (13:52) 398.4 (13:59) 05/20/24 121/79 (09:56) 85 (09:56) 404.8 (10:03) 05/13/24 144/123 (10:00) 78 (10:00) 402.4 (10:03) 05/09/24 152/92 (09:03) 69 (09:03) 404.6 (09:07) 05/07/24 151/86 (13:22) 68 (13:22) 405.9 (13:24) 05/06/24 153/81 (07:50) 74 (07:50) 406.8 (07:54) 05/02/24 140/81 (08:33) 70 (08:33) 409.0 (08:35) 05/02/24 139/80 (08:32) 69 (08:32) Diabetes complications: +neuropathy, albuminuria Family hx of DM: maternal aunt Physical activity:Minimal Hard for patient to get around Diet:more salads,greens,cabbage not a lot of fried food peanut & canola oil not a lot of cymraes oil baked sweet potato,cut bread out pasta once/month more fish/baked chicken more beef than pork Breakfast: bolied egg or hash brown some time waffle w/sugar free syrup tea w/honey,coffee w/honey Lunch: lite Dinner: baked or friend chicken or fish + rice + vegetables Snack: sometimes eats chips, occasional junk food fruits:peaches,cantaloupe,apple, orange very few grapes Quit drinking pepsi >2 year ago. Used to drink 3 large drinks per day. 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 No tobacco, alcohol, or drug use Lives with ROS: As per HPI PAST HX: 1) Benign essential hypertension 2) Hyperlipidemia 3) Morbid obesity 4) Gout 5) Type 2 diabetes mellitus 6) Thrombosis of the popliteal vein 7) Anemia/ Folate deficiency 8) Stasis dermatitis 9) History of calculus of kidney 10) Osteoarthritis of knee/ Foot pain Physical examination Alert and awake in no apparent distress 79 (06/02/2024 09:41) Measurement DT BP 06/02/2024 09:41 118/73 04/15/2024 13:16 130/76 04/05/2024 09:40 170/90 Measurement DT WEIGHT LB(KG)[BMI] 06/02/2024 09:41 412(186.88)[58*] 04/15/2024 13:16 409(185.52)[57*] 01/24/2024 13:40 415.1(188.29)[58*] HEENT:sclera non icteric Neck:supple Lungs:CTA CVS:RRR Ext:no edema PANTOGRAPH ENGRAVER:non focal Mood:Appropriate Flexion deformity of right middle finger LABS: 05/24/2023 13:34 BLOOD HGA1C 5.7 % 4.0 - 6.0 11/09/2022 17:28 BLOOD HGA1C 6.0 % 4.0 - 6.0 Collection DT Spec CHOL TRIG CalcLDL HDL a 01/25/2024 PLASM 207 H 80 150 41 SODIUM 143 mEq/L 01/25/2024 POTASSIUM 3.8 mEq/L 01/25/2024 CHLORIDE 112 H mEq/L 01/25/2024 UREA NITROGEN 22.1 mg/dL 01/25/2024 CREATININE 1.49 H mg/dL 01/25/2024 CALCIUM 9.9 mg/dL 01/25/2024 CARBON DIOXIDE 22 mEq/L 01/25/2024 GLUCOSE 125 H mg/dL 01/25/2024 EGFR (CKD-EPI 2020) 49.6 01/25/2024 AST/SGOT 15 U/L 01/25/2024 ALT/SGPT 9 U/L 01/25/2024 CREATuF: 294.7 (01/25/24 00:00) M/CREAT: 30 (01/25/24 00:00) MICRAL: 87.3 (01/25/24 00:00) Active Outpatient Medications (including Supplies): Active Outpatient Medications Status 1) AMLODIPINE BESYLATE 10MG TAB TAKE ONE TABLET BY MOUTH ONCE A ACTIVE DAY FOR HEART/BLOOD PRESSURE 2) ATORVASTATIN CALCIUM 20MG TAB TAKE ONE-HALF TABLET BY MOUTH ACTIVE EVERY EVENING Indication: FOR HIGH CHOLESTEROL 3) CARBOXYMETHYLCELLULOSE NA 0.5% OPH SOLN INSTILL 1 DROP IN ACTIVE BOTH EYES FOUR TIMES A DAY NEEDED Indication: FOR DRY EYE(S) 4) CHOLECALCIF 50MCG (D3-2,000UNIT) TAB TAKE ONE TABLET BY ACTIVE MOUTH ONCE A DAY Indication: FOR VITAMIN D DEFICIENCY 5) COLCHICINE 0.6MG TAB TAKE ONE TABLET BY MOUTH ONCE A DAY ACTIVE (STOP MED AND CONTACT PROVIDER AT FIRST SIGN OF NAUSEA, VOMITING OR DIARRHEA) Indication: FOR GOUT 6) ENALAPRIL MALEATE 20MG TAB TAKE TWO TABLETS BY MOUTH ONCE A ACTIVE DAY FOR HEART OR TO LOWER BLOOD PRESSURE Indication: FOR HIGH BLOOD PRESSURE 7) FEBUXOSTAT 80MG TAB TAKE ONE TABLET BY MOUTH ONCE A DAY FOR ACTIVE GOUT 8) LIDOCAINE 5% PATCH APPLY 1 PATCH TO SKIN SITE ONCE A DAY ACTIVE APPLY PATCH AND PRESS FIRMLY FOR 10-15 SECONDS. KEEP ON FOR 12 HOURS THEN REMOVE PATCH FOR 12 HOURS. Indication: FOR LOCAL ANESTHESIA 9) TADALAFIL 20MG TAB TAKE ONE TABLET BY MOUTH EVERY WEEK ACTIVE NEEDED (TAKE 30 MINUTES PRIOR TO SEXUAL ACTIVITY) - LIMIT 18 DOSES PER 90 DAYS Indication: FOR ERECTILE DYSFUNCTION Active Non-VA Medications Status 1) Non-VA ACETAMINOPHEN 500MG TAB 500MG BY MOUTH FOUR TIMES A ACTIVE DAY NEEDED 2) Non-VA MULTIVITAMIN CAP/TAB BY MOUTH ONCE A DAY ACTIVE 11 Total Medications MERCURY,AMMONIATED, SILDENAFIL, ALLOPURINOL, GABAPENTIN, ROSUVASTATIN EZETIMIBE A/P: T2DM:Taregt a1c 7-7.5% Complicated by morbid obesity/chronic kidney disease/hyperglycemia(although no blood sugar log) 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 Current hyperglycemia can be related to thyroid injection. Patient can also consider restarting GLP-1 agonist, dose does not need to be increased to 2 mg/week, he was able to tolerate 1 mg back If A1c is greater than 9% ideally he should consider insulin Test strips renewed, advised to monitor daily for now Diet reviewed, advised to stay well-hydrated Eye examination 02/18/24 1. Choroid Nevus OS 2. Dry Eye OU 3. Diabetes without retinopathy 4. Cataracts O.U. 5. Presbyopia, Refractive Error OU PAVE Foot Check: 08/08/2023 PER [facility] DIRECTIVE 1122 PT IS CONSIDERED TO BE MODERATE TO HIGH RISK. 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, gained 9lbs 05/10/2023 10:37 408(185.07)[57*] 05/08/2023 14:02 408.5(185.29)[57*] 01/24/2023 10:38 385.3(174.77)[54*] 10/19/2022 12:46 428.1(194.18)[60*] 09/05/2022 11:51 416.3(188.83)[58*] weighed 452 lbs 09/2018 + History of tophaceous gout Recent change in guidelines for TIRZEPATIDE Will benefit from semaglutide(indication for both type 2 diabetes/weight management and multiple other comorbidities) Cannot use Qsymia because of history of diastolic dysfunction and renal calculi Questions answered Verbalized understanding RTC 3 months with PHYSICIAN INDUSTRIAL Kanchan 6 months with provider I spent 30 minutes performing services for this patient: before, during and after the F2F visit today more than 50% of the provider's gqni-qq-nitt visit time with a patient is spent in counseling or coordination of care Voice recognition software was used for this note. Errors of pronunciation may be present despite careful editing Medication Reconciliation Opt STL: I have reviewed the patient's medication list (including active outpatient prescriptions [facility]ensed from this [facility] (local) and dispensed from another [place] or [facility] facility (remote) as well as inpatient orders (local pending and active), local clinic medications, locally documented non-VA medications, and local prescriptions that have or been discontinued in the past 90 days.) with the patient. /buzz/ NITESH PENA MD PHYSICIAN Signed: 06/02/2024 10:42 NITESH PENA [facility]
--- OUTSIDE RECORDS SUMMARY | 2024-07-27 07:32 | XMS_ITS | Encounter Summary ---
Author Name [facility] [place] Address [address] [place] [address] Care Team Providers Care Temporary Help Agency Referral Clerk Name Role Phone MARIA DEL ROSARIO ESTES [...] PART A Feb 01, 2016 PART A [id number] RODNEY MIX PATIENT MEDICARE (WNR) MEDICARE (M) PART A Feb 01, 2016 PART A [id number] RODNEY MIX PATIENT MEDICARE (WNR) MEDICARE (M) PART B Feb 01, 2016 PART B [id number] RODNEY MIX PATIENT MEDICARE (WNR) MEDICARE (M) PART B Feb 01, 2016 PART B [id number] RODNEY MIX PATIENT [facility] (WNR) MEDICARE ADVANTAGE [facility](W NR) Jan 01, 2024 [id number] RODNEY MIX PATIENT Selected Encounter This section includes the information on record at [place] for the Encounter. Date/Time Encounter Type Encounter Description Reason Provider Source Nov 08, 2023 02:26 PM Outpatient Encounter ADMIN PAT ACTIVTIES (MASNONCT) MARIA DEL ROSARIO ESTES Giulia Encounter Template Text not used by [place] Plan of Treatment: Future Appointments (+ 6 months) and Future Tests (+/- 45 days) The Plan of Treatment section includes future care activities for the patient from all [place] treatmentfacilities. This section includes future appointments and future orders which are active, pending or scheduled. Future Appointments This section includes appointments that were scheduled to occur 6 months from the date of the Encounter, up to a maximum of 20 appointments. The data comes from all [place] treatment facilities. Appointment Date/Time Appointment Type Appointme nt Facility Name Nov 16, 2023 01:00 PM AMBULATORY - MEDICINE [facility] Nov 22, 2023 01:00 PM AMBULATORY - MEDICINE [facility] Nov 23, 2023 09:00 AM AMBULATORY - MEDICINE [facility] Dec 11, 2023 09:00 AM AM[facility]ULATORY - NONE [facility] Dec 24, 2023 03:00 PM AMBULATORY - MEDICINE [facility] Jan 07, 2024 01:30 PM AM[facility]ULATORY - SURGERY [facility] Jan 24, 2024 01:30 PM AMBULATORY - MEDICINE [facility] Feb 18, 2024 09:30 AM AMBULATORY - SURGERY [facility] Feb 20, 2024 11:30 AM AMBULATORY - NONE [facility] Mar 06, 2024 11:00 AM AMBULATORY - NONE [facility] Mar 14, 2024 11:00 AM AMBULATORY - REHAB MEDICIN E [facility] Apr 03, 2024 11:30 AM AMBULATORY - MEDICINE [facility] Apr 05, 2024 09:35 AM AMBULATORY - MEDICINE [facility] Apr 15, 2024 12:00 PM AMBULATORY - MEDICINE [facility] Apr 16, 2024 11:00 AM AM[facility]ULATORY - NONE [facility] Apr 16, 2024 01:30 PM AMBULATORY - NONE [facility] Active, Pending, and Scheduled Orders This section includes a listing of several types of active, pending, and scheduled orders, including clinic medications orders, diagnostic test orders, procedure orders and consult orders; where the start date of the order is 45 days before the date of the Encounter or 45 days after the date of theEncounter. The data comes from all [facility] facilities. Test Date/Time Test Type Test Details Facility Name Nov 07, 2023 12:00 AM Laboratory - Chemi stry Order URINALYSIS W/ CX REFLEX (STL-PB) URINE - CLEAN CATCH [facility] Nov 07, 2023 12:00 AM Laboratory - Chemi stry Order VITAMIN D, 25-HYDROXY GOLD/RED SST SERUM [facility] Nov 07, 2023 12:00 AM Laboratory - Chemi stry Order OCCULT BLOOD FIT X1 SCREEN STOOL FECES [facility] Nov 07, 2023 12:00 AM Laboratory - Chemi stry Order MICRAL/CREAT PROFILE (STL) URINE [facility] Social History: Smoking Status (Most current) and Tobacco Use (All prior to encounter date) This section includes the most current, and the historical, smoking and tobacco- related health factors from the [place] facility where the Encounter took place. Current Smoking Status This section includes the most current smoking, or tobacco-related health factor, from the [place] facility where the Encounter took place. Date/Time Current Smoking Status Comment Tabitha ity Jun 06, 2022 10:00 AM [place]-TOBACCO NEVER USED [facility] Tobacco Use History This section includes a history of the smoking, or tobacco-related health factors, that were collected on or before the date of the Encounter. The data comes from the [place] facility where the Encounter took place. Date/Time Smoking Status/Tobacco Use Comment F acility Mar 15, 2020 02:00 PM VA-TOBACCO FORMER USER [facility] Mar 15, 2020 02:00 PM VA-TOBACCO QUIT 15 YRS OR MORE [facility] Jan 29, 2018 10:49 AM VA-TOBACCO NEVER USED [facility] Oct 12, 2016 09:53 AM LIFETIME NON-USER OF TOBACCO [facility] August 02, 2015 10:40 AM LIFETIME NON-USER OF TOBACCO [facility] Oct 22, 2014 09:50 AM LIFETIME NON-USER OF TOBACCO [facility] Jan 08, 2009 08:24 AM QUIT TOBACCO >7 YEARS AGO [facility] Encounter Notes: All associated encounter notes This [...] which uses technology to provide education, improve [place] self-care management, and for professional daily monitoring of symptoms and problems all from the Veterans homes. Home Telehealth Police Judge-reviewed: Hypertension Dashboard identified as potential patient who may benefit from Remote Patient Monitoring(RPM)- Home Telehealth (HT) services. Patient enrolled in Remote Patient Monitoring (RMP)-Home Telehealth(HT) program. No [place] meets criteria for enrollment in RPM-HT program? Yes Referral placed to home telehealth pending provider approval/signature /buzz/ JUAN MANUEL SERRANO RN REGISTERED NURSE Signed: 11/08/2023 14:29 JUAN MANUEL COCHRAN [facility]
--- OUTSIDE RECORDS SUMMARY | 2024-07-27 07:32 | XMS_ITS | Continuity of Care Document ---
Author Name [facility] Organization [facility] Care Team Providers Care Prison Guard Supervisor Name Role Phone [facility] Unavailable Unavailable Problems Combined list of problems from Department of Defense and Veterans Affairs facilities. It does not include entries that were removed or entered in error. Problem Status Onset Date Problem Type Date of Resolution Comments Source Anemia Active Condition [facility] Anticoagulant control Active Condition [facility] Benign essential hypertension Active Condition [facility] Chronic Kidney Disease Stage 3A (SCT 045429195) Active Condition [facility] Diastolic dysfunction Active Condition [facility] Eczema (SCT 68929550) Active Condition [facility] Erectile dysfunction (SNOMED CT 118517103) Active Condition [facility] Exposure to potentially hazardous substance Active Condition [facility] Folate deficiency Active Condition [facility] Foot pain Active Condition [facility] Gout Active Condition [facility] History of calculus of kidney Active Condition [facility] History of recurrent deep vein thrombosis Active Condition [facility] Hyperlipidemia Active Condition [facility] Knee pain Active Condition [facility] Morbid obesity Active Condition [facility] Numbness Active Condition [facility] Obesity Active Condition [facility] Obstructive Sleep Apnea of Adult (SCT 0116754814206) Active Condition [facility] Osteoarthritis of knee Active Condition [facility] Pyuria Active Condition [facility] Stasis dermatitis Active Condition [facility] 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 [facility] Type 2 diabetes mellitus Active Condition [facility] Vitamin D Deficiency (SCT 73103604) Active Condition [facility] Diagnosis: ICD-10-CM I10 Essential (primary) hypertension Active Diagnosis [facility] Diagnosis: ICD-10-CM E66.01 Morbid (severe) obesity due to excess calories Active Diagnosis [facility] Diagnosis: ICD-10-CM M65.332 Trigger finger, left middle finger Active Diagnosis [facility] Diagnosis: ICD-10-CM E11.65 Type 2 diabetes mellitus with hyperglycemia Active Diagnosis [facility] Diagnosis: ICD-10-CM E78.5 Hyperlipidemia, unspecified Active Diagnosis [facility] Diagnosis: ICD-10-CM M19.90 Unspecified osteoarthritis, unspecified site Active Diagnosis [facility] Diagnosis: ICD-10-CM R09.81 Nasal congestion Active Diagnosis [facility] Diagnosis: ICD-10-CM J20.9 Acute bronchitis, unspecified Active Diagnosis [facility] Diagnosis: ICD-10-CM H25.13 Age-related nuclear cataract, bilateral Active Diagnosis [facility] Margarito NEELY [facility] Diagnosis: ICD-10-CM M10.9 Gout, unspecified [facility] Diagnosis: ICD-10-CM B35.1 Tinea unguium Active Diagnosis [facility] Diagnosis: ICD-10-CM E11.22 Type 2 diabetes mellitus w diabetic chronic kidney disease Active Diagnosis [facility] Diagnosis: ICD-10-CM 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 [facility] Diagnosis: ICD-10-CM Z86.718 Personal history of other venous thrombosis and embolism Active Diagnosis [facility] Diagnosis: ICD-10-CM R26.2 Difficulty in walking, not elsewhere classified Active Diagnosis [facility] Diagnosis: ICD-10-CM Z63.6 Dependent relative needing care at home Active Diagnosis [facility] Diagnosis: ICD-10-CM M17.0 Bilateral primary osteoarthritis of knee Active Diagnosis [facility] Medications Combined list of outpatient medications from Department of Defense and [facility] Affairs facilities.Medications provided include 1) outpatient medications from the last 15 months, and 2) patient-reported medications. Medication Details Route Status Patient Instructions Prescription Expires Prescription Number Last Dispense Date Ordering Provider Order Date Order Qty Source ACETAMINOPH EN 500MG TAB TAKE ONE TABLET BY MOUTH FOUR TIMES A DAY NEEDED ORAL ACTIVE Meghan URBINA 2014 [facility] ALBUTEROL SO4 90MCG/ACTUA T (CFC-F) INHL,ORAL,8 .5GM INHALE 1 PUFF BY ORAL INHALATI ON FOUR TIMES A DAY NEEDED SHAKE WELL. RINSE MOUTHPIE CE FREQUENT LY TO PREVENT CLOGGING . RESPIR ATORY (INHAL ATION) 05/03/2024 [id number] 5 SHANE BE 2024 1 [facility] AMLODIPINE BESYLATE 10MG TAB TAKE ONE TABLET BY MOUTH ONCE A DAY FOR HEART/BL OOD PRESSURE ORAL ACTIVE 11/07/2024 [id number] 5 MARIA DEL ROSARIO ESTES [address] [place] [address] [facility] AMLODIPINE BESYLATE 10MG TAB TAKE ONE TABLET BY MOUTH ONCE A DAY FOR HEART/BL OOD PRESSURE ORAL DISCONT INUED 05/09/2024 [id number] 4 MARIA DEL ROSARIO ESTES [address] [place] [address] DIVISIO N AMLODIPINE BESYLATE 10MG TAB TAKE ONE TABLET BY MOUTH ONCE A DAY FOR HEART/BL OOD PRESSURE ORAL DISCONT INUED 05/09/2024 [id number] 4 MARIA DEL ROSARIO ESTES [address] [place] [address] DIVISIO N ATORVASTATI N CA 10MG TAB TAKE ONE-HALF TABLET BY MOUTH EVERY EVENING FOR HIGH CHOLESTE ROL ORAL DISCONT INUED BY PROVIDE R 05/20/2024 [id number] 4 LONNIE CASILLAS [address] [place] [address] [facility] ATORVASTATI N CA 20MG TAB TAKE ONE-HALF TABLET BY MOUTH EVERY EVENING ORAL ACTIVE 04/17/2025 [id number] 5 LONNIE CASILLAS 2024 45 [facility] BENZONATATE 100MG CAP TAKE ONE CAPSULE BY MOUTH THREE TIMES A DAY NEEDED FOR COUGH ORAL 05/03/2024 [id number] 5 SHANE BE D 2024 90 [facility] CARBOXYMETH YLCELLULOSE NA 0.5% SOLN,OPH INSTILL 1 DROP IN BOTH EYES FOUR TIMES A DAY NEEDED FOR DRY EYE(S) OPHTHA LMIC ACTIVE 02/18/2025 [id number] 4 DELVIN HENDERSON 2023 45 [facility] DIV[facility]IO N CHOLECALCIF MARK ANTHONY 50MCG (2,000UNIT) TAB TAKE ONE TABLET BY MOUTH ONCE A DAY FOR VITAMIN D DEFICIEN CY ORAL ACTIVE 11/07/2024 [id number] 4 MARIA DEL ROSARIO ESTES 2023 100 [facility] CHOLECALCIF MARK ANTHONY 50MCG (2,000UNIT) TAB TAKE ONE TABLET BY MOUTH ONCE A DAY FOR VITAMIN D DEFICIEN CY ORAL DISCONT INUED 09/11/2023 [id number] 4 RA ARIC PÉREZ 2022 100 [facility] DIV[facility] N COLCHICINE 0.6MG TAB TAKE ONE TABLET BY MOUTH ONCE A DAY FOR GOUT (STOP MED AND CONTACT PROVIDER AT FIRST SIGN OF NAUSEA, VOMITING OR DIARRHEA ) ORAL ACTIVE 05/08/2025 [id number] 5 CONCETTA GEE 2024 90 [facility] DIV[facility] N COLCHICINE 0.6MG TAB TAKE ONE TABLET BY MOUTH ONCE A DAY FOR GOUT (STOP MED AND CONTACT PROVIDER AT FIRST SIGN OF NAUSEA, VOMITING OR DIARRHEA ) ORAL DISCONT INUED 05/08/2024 [id number] 4 ELYSE POOLE 2023 90 [facility] N DICLOFENAC NA 1% GEL,TOP APPLY 2 GM TO AFFECTED AREA(S) FOUR TIMES A DAY NEEDED FOR PAIN/INF LAMMATIO N; NOT MORE THAN 16 GRAMS DAILY TO ANY LOWER EXTREMIT Y JOINT. NOT MORE THAN 8 GRAMS DAILY TO ANY UPPER EXTREMIT Y JOINT. MAX 32GM/DAY OVER ALL JOINTS. (MEASURE DOSE WITH RULER ATTACHED INSIDE BOX) TOPICA L DISCONT INUED 11/07/2024 [id number] 4 MARIA DEL ROSARIO ESTES 2023 200 [facility] DICLOFENAC NA 1% GEL,TOP APPLY 2 GM TO AFFECTED AREA(S) FOUR TIMES A DAY NEEDED FOR PAIN/INF LAMMATIO N; NOT MORE THAN 16 GRAMS DAILY TO ANY LOWER EXTREMIT Y JOINT. NOT MORE THAN 8 GRAMS DAILY TO ANY UPPER EXTREMIT Y JOINT. MAX 32GM/DAY OVER ALL JOINTS. (MEASURE DOSE WITH RULER ATTACHED INSIDE BOX) TOPICA L DISCONT INUED 05/08/2024 [id number] 4 ELYSE POOLE RTHA M 2023 200 [facility] DIVISIO N DICLOFENAC NA 1% GEL,TOP APPLY 2 GM TO AFFECTED AREA(S) FOUR TIMES A DAY FOR PAIN NO MORE THAN 16 GM/DAY TO ANY LOWER EXTREMIT Y JOINT. NO MORE THAN 8 GM/DAY TO ANY UPPER EXTREMIT Y JOINT. MAX 32GM/DAY OVER ALL JOINTS.( MEASURE DOSE WITH RULER INSIDE BOX) TOPICA L 05/05/2024 [id number] 5 AAKASH FREITAS 2024 100 [facility] N ENALAPRIL MALEATE 20MG TAB TAKE TWO TABLETS BY MOUTH ONCE A DAY FOR HEART OR TO LOWER BLOOD PRESSURE ORAL ACTIVE 11/07/2024 [id number] 5 MARIA DEL ROSARIO ESTES 2023 180 [facility] ENALAPRIL MALEATE 20MG TAB TAKE ONE TABLET BY MOUTH ONCE A DAY FOR HEART OR TO LOWER BLOOD PRESSURE ORAL DISCONT INUED (EDIT) 05/09/2024 [id number] 4 MARIA DEL ROSARIO ESTES 2023 90 [facility] DIV[facility]IO N EZETIMIBE 10MG TAB TAKE ONE TABLET BY MOUTH ONCE A DAY ORAL DISCONT INUED BY PROVIDE R 11/07/2024 [id number] 4 MARIA DEL ROSARIO ESTES 2023 90 [facility] FEBUXOSTAT 80MG TAB TAKE ONE TABLET BY MOUTH ONCE A DAY FOR GOUT ORAL ACTIVE 02/07/2025 [id number] 4 PERLA DOBBINSN K 2023 90 [facility] FEBUXOSTAT 80MG TAB TAKE ONE-HALF TABLET BY MOUTH ONCE A DAY FOR GOUT ORAL 01/26/2024 [id number] 4 POOLEELYSE DION M 2022 45 [facility] N GUAIFENESIN 400MG TAB TAKE ONE TABLET BY MOUTH EVERY 6 HOURS NEEDED FOR MUCUS THINNING TAKE WITH 8 OUNCE GLASS OF WATER. ORAL 05/03/2024 [id number] 5 SHANE BE D 2024 120 [facility] HYDROPHILIC (EQV EUCERIN) CREAM,TOP APPLY SPARINGL Y TO AFFECTED AREA(S) ONCE A DAY FOR DRY SKIN (EXTERNA L USE ONLY) TOPICA L DISCONT INUED 09/06/2023 [id number] 4 RA ARIC PÉREZ 2022 454 [facility] DIV[facility] N HYDROPHILIC (EQV EUCERIN) CREAM,TOP APPLY SPARINGL Y TO AFFECTED AREA(S) ONCE A DAY DRY SKIN (EXTERNA L USE ONLY) TOPICA L 05/10/2024 [id number] 4 MARIA DEL ROSARIO ESTES 2023 454 [facility] LIDOCAINE 5% PATCH APPLY 1 PATCH TO SKIN SITE ONCE A DAY APPLY PATCH AND PRESS FIRMLY FOR 10-15 SECONDS. KEEP ON FOR 12 HOURS THEN REMOVE PATCH FOR 12 HOURS. TRANSD ERMAL ACTIVE 11/07/2024 [id number] 4 MARIA DEL ROSARIO ESTES 2023 30 [facility] MULTIVITAMI N CAP/TAB TAKE BY MOUTH ONCE A DAY ORAL ACTIVE Meghan URBINA 2015 [facility] DIVISIO N ROSUVASTATI N CA 20MG TAB TAKE ONE-HALF TABLET BY MOUTH EVERY EVENING FOR HIGH CHOLESTE ROL .REPOR T ANY UNEXPLAI RAMAKRISHNA MUSCLE PAIN OR WEAKNESS TO PROVIDER ORAL 09/11/2023 [id number] 4 RA ARIC PÉREZ 2022 45 [facility] DIVISIO N TADALAFIL 20MG TAB TAKE ONE TABLET BY MOUTH EVERY WEEK NEEDED (TAKE 30 MINUTES PRIOR TO SEXUAL ACTIVITY ) - LIMIT 18 DOSES PER 90 DAYS ORAL ACTIVE 12/06/2024 [id number] 4 MARIA DEL ROSARIO ESTES 2023 18 [facility] TRIAMCINOLO NE ACETONIDE 0.1% OINT,TOP APPLY SPARINGL Y TO AFFECTED AREA(S) TWICE A DAY FOR ATOPIC DERMATIT IS (EXTERNA L USE ONLY) TOPICA L 05/10/2024 [id number] 4 MARIA DEL ROSARIO ESTES 2023 80 [facility] Allergies, Adverse Reactions, Alerts Combined list of allergies from Department of Defense and Veterans Affairs facilities. It does not include entries that were removed or entered in error. Substance Category Reaction Severity Reaction type Status Date Reported Comments Source ALLOPURINOL Propensity to adverse reactions to drug (finding) Joint pain active 7 [facility] EZETIMIBE Propensity to adverse reactions to drug (finding) Gout MODERATE active 4 [facility] GABAPENTIN Propensity to adverse reactions to drug (finding) Sedated active 0 [facility] MERCURY,[place]LETTE IATED Propensity to adverse reactions to drug (finding) active 5 [facility] ROSUVASTATIN Propensity to adverse reactions to drug (finding) Gout MODERATE active 4 [facility] SILDENAFIL Propensity to adverse reactions to drug (finding) Headache active 5 [facility] Immunizations Combined list of available immunizations from the Department of [facility] and Veterans Affairs facilities. Immunization Series Date Given Administered By Site Reaction Lot Number CVX Code Drug Insurance Processor Status Comments Source PNEUMOCOCCAL POLYSACCHARID E PPV23 2024 NILA DYER LEFT DELTO ID [id number] 33 complet ed Completed Series, ADMINISTE [facility] AT [facility] INFLUENZA, HIGH-DOSE, TRIVALENT, PF 2024 VALENTINA GARCIA RIGHT DELTO ID [id number] 135 complet ed Completed Series, ADMINISTE [facility] AT [facility] N INFLUENZA VACCINE, QUADRIVALENT, ADJUVANTED 2022 LINA APARICIO RIGHT DELTO ID [id number] 205 complet ed ADMINISTE RED AT [facility] N INFLUENZA VACCINE, QUADRIVALENT, ADJUVANTED 2020 205 complet ed [facility] N INFLUENZA, INJECTABLE, QUADRIVALENT, PRESERVATIVE FREE 2018 150 complet ed [facility] N TDAP 2018 115 complet ed Right Deltoid [facility] N INFLUENZA, INJECTABLE, QUADRIVALENT, PRESERVATIVE FREE 2017 150 complet ed [facility] DIVIS[facility] N ZOSTER RECOMBINANT 2 2017 187 complet ed [facility] Z[facility]ER RECOMBINANT 1 2017 187 complet ed [facility] DIV[facility] N INFLUENZA, INJECTABLE, QUADRIVALENT, PRESERVATIVE FREE 2016 150 complet ed [facility] N PNEUMOCOCCAL CONJUGATE PCV 13 2016 133 complet ed [facility] PNEUMOCOCCAL POLYSACCHARID E PPV23 2015 33 complet ed [facility] N INFLUENZA, SEASONAL, INJECTABLE, PRESERVATIVE FREE 2014 140 complet ed [facility] N ZOSTER LIVE 2014 121 complet ed [facility] N INFLUENZA, UNSPECIFIED FORMULATION 2013 88 complet ed [facility] N TDAP 2008 115 complet ed Left Deltoid [facility] N INFLUENZA, UNSPECIFIED FORMULATION 2008 88 complet ed [facility] N Results Combined list of recent chemistry, hematology and other laboratory results from Department of Defense and Veterans Affairs, ranging from 15 months to all on record, depending upon the facility. Order Name Results Value Reference Range Date Interpretation Specimen Comments Source HGA1C HEMOGLOBIN A1C/HEMOGLO BIN.TOTAL IN BLOOD 6.8 4.0 - 6.0 07/08 H Specimen Type: BLOOD No comment entered. Ordering Provider: MERLINE ESTES Report Released Date/Time: Jul 08, 2024 11:48 AM Reporting Lab: [place] [address] Performing Lab: [facility] [address] [place], [place] [id number] [address] [facility] BASIC METABOLIC PANEL CREATININE [MASS/VOLUM E] IN SERUM OR PLASMA 1.18 mg/dL 0.7 - 1.3 07/08 Specimen Type: PLASMA Comment: No hemolysis noted. Ordering Provider: MERLINE ESTES Report Released Date/Time: Jul 08, 2024 11:48 AM Reporting Lab: [place] [address] Performing Lab: [address] [facility] BASIC METABOLIC PANEL UREA NITROGEN [MASS/VOLUM E] IN SERUM OR PLASMA 21.4 mg/dL 9.0 - 25.0 07/08 Specimen Type: PLASMA Comment: No hemolysis noted. Ordering Provider: MERLINE ESTES Report Released Date/Time: Jul 08, 2024 11:48 AM Reporting Lab: [place] [address] Performing Lab: [address] [facility] BASIC METABOLIC PANEL GLUCOSE [MASS/VOLUM E] IN SERUM OR PLASMA 123 mg/dL 72 - 99 07/08 H Specimen Type: PLASMA Comment: No hemolysis noted. Ordering Provider: MERLINE ESTES Report Released Date/Time: Jul 08, 2024 11:48 AM Reporting Lab: [place] [address] Performing Lab: [address] [facility] BASIC METABOLIC PANEL SODIUM [MOLES/VOLU ME] IN SERUM OR PLASMA 141 meq/L 136 - 145 07/08 Specimen Type: PLASMA Comment: No hemolysis noted. Ordering Provider: MERLINE ESTES Report Released Date/Time: Jul 08, 2024 11:48 AM Reporting Lab: [facility] [address] [place], [place] [phone] Performing Lab: [facility] [address] [place] [address] [phone] [facility] BASIC METABOLIC PANEL POTASSIUM [MOLES/VOLU ME] IN SERUM OR PLASMA 4.2 meq/L 3.5 - 5 07/08 Specimen Type: PLASMA Comment: No hemolysis noted. Ordering Provider: MERLINE ESTES Report Released Date/Time: Jul 08, 2024 11:48 AM Reporting Lab: [place] [address] Performing Lab: [address] [facility] BASIC METABOLIC PANEL CHLORIDE [MOLES/VOLU ME] IN SERUM OR PLASMA 112 meq/L 98 - 107 07/08 H Specimen Type: PLASMA Comment: No hemolysis noted. Ordering Provider: MERLINE ESTES Report Released Date/Time: Jul 08, 2024 11:48 AM Reporting Lab: [facility] [address] [place], [place] [phone] Performing Lab: [address] [phone] [facility] BASIC METABOLIC PANEL CARBON DIOXIDE, TOTAL [MOLES/VOLU ME] IN SERUM OR PLASMA 23 meq/L 22 - 31 07/08 Specimen Type: PLASMA Comment: No hemolysis noted. Ordering Provider: MERLINE ESTES Report Released Date/Time: Jul 08, 2024 11:48 AM Reporting Lab: [facility] [address] [place] [address] Performing Lab: [address] [phone] [facility] BASIC METABOLIC PANEL CALCIUM [MASS/VOLUM E] IN SERUM OR PLASMA 9.9 mg/dL 8.4 - 10.4 07/08 Specimen Type: PLASMA Comment: No hemolysis noted. Ordering Provider: MERLINE ESTES Report Released Date/Time: Jul 08, 2024 11:48 AM Reporting Lab: [address] [phone] Performing Lab: [address] [phone] [facility] BASIC METABOLIC PANEL GLOMERULAR FILTRATION RATE/1.73 SQ M.PREDICTED [VOLUME RATE/AREA] IN SERUM, PLASMA OR BLOOD BY CREATININE- BASED FORMULA (CKD-EPI 2020) 65.2 60 07/08 Specimen Type: PLASMA Comment: No hemolysis noted. Ordering Provider: MERLINE ESTES Report Released Date/Time: Jul 08, 2024 11:48 AM Reporting Lab: [address] [phone] Performing Lab: [address] [phone] [facility] GLUCOSE,B LOOD-poct (STL) GLUCOSE [MASS/VOLUM E] IN BLOOD BY AUTOMATED TEST STRIP 116 mg/dL 72 - 99 07/08 H Specimen Type: BLOOD Comment: Test Performed by: [id number] Meter #: [id number] Ordering Provider: MERLINE ESTES Report Released Date/Time: Jul 08, 2024 03:31 PM Reporting Lab: [facility] [address] [facility] [address] Performing Lab: [facility] [address] [place] [phone] [facility] URIC ACID URATE [MASS/VOLUM E] IN SERUM OR PLASMA 8.9 mg/dL 3.5 - 7.2 01/24 H Specimen Type: PLASMA Comment: No hemolysis noted. Ordering Provider: MERLINE ESTES Report Released Date/Time: Jan 24, 2024 02:12 PM Reporting Lab: [address] [phone] Performing Lab: [address] [phone] [facility] LIPID PANEL (STL) CHOLESTEROL [MASS/VOLUM E] IN SERUM OR PLASMA 207 mg/dL 0 - 200 01/24 H Specimen Type: PLASMA Comment: No hemolysis noted. Ordering Provider: MERLINE ESTES Report Released Date/Time: Jan 24, 2024 02:12 PM Reporting Lab: [address] [phone] Performing Lab: [address] [phone] [facility] LIPID PANEL (STL) TRIGLYCERID E [MASS/VOLUM E] IN SERUM OR PLASMA 80 mg/dL 0 - 150 01/24 Specimen Type: PLASMA Comment: No hemolysis noted. Ordering Provider: MERLINE ESTES Report Released Date/Time: Jan 24, 2024 02:12 PM Reporting Lab: [address] [phone] Performing Lab: [address] [address] [facility] LIPID PANEL (STL) CHOLESTEROL IN LDL [MASS/VOLUM E] IN SERUM OR PLASMA BY CALCULATION 150 mg/dL 01/24 Specimen Type: PLASMA Comment: No hemolysis noted. Ordering Provider: MERLINE ESTES Report Released Date/Time: Jan 24, 2024 02:12 PM Reporting Lab: [address] [phone] Performing Lab: [address] [address] [facility] LIPID PANEL (STL) CHOLESTEROL IN HDL [MASS/VOLUM E] IN SERUM OR PLASMA 41 mg/dL 40 01/24 Specimen Type: PLASMA Comment: No hemolysis noted. Ordering Provider: MERLINE ESTES Report Released Date/Time: Jan 24, 2024 02:12 PM Reporting Lab: [address] [phone] Performing Lab: [address] [address] [facility] VITAMIN D, 25-HYDROX Y 25-HYDROXYV ITAMIN D3 [MASS/VOLUM E] IN SERUM OR PLASMA 20.9 ng/mL 30 - 96 01/24 L Specimen Type: SERUM No comment entered. Ordering Provider: MERLINE ESTES Report Released Date/Time: Jan 24, 2024 02:12 PM Reporting Lab: [place] [phone] Performing Lab: [phone] [place] [address] [facility] MICRAL/CR EAT PROFILE (STL) ALBUMIN [MASS/VOLUM E] IN URINE 87.3 mg/L 01/24 Specimen Type: URINE No comment entered. Ordering Provider: MERLINE ESTES Report Released Date/Time: Jan 24, 2024 02:12 PM Reporting Lab: [place] [phone] Performing Lab: [address] [phone] [place] [address] [facility] MICRAL/CR EAT PROFILE (STL) ALBUMIN/CRE ATININE [MASS RATIO] IN URINE 30 mg/g 0 - 29 01/24 H Specimen Type: URINE No comment entered. Ordering Provider: MERLINE ESTES Report Released Date/Time: Jan 24, 2024 02:12 PM Reporting Lab: [address] [address] Performing Lab: [address] [phone] [facility] MICRAL/CR EAT PROFILE (STL) CREATININE [MASS/VOLUM E] IN URINE 294.7 mg/dL 63 - 166 01/24 H Specimen Type: URINE No comment entered. Ordering Provider: MERLINE ESTES Report Released Date/Time: Jan 24, 2024 02:12 PM Reporting Lab: [address] [phone] Performing Lab: [address] [place] [address] [facility] COMPREHEN SIVE METABOLIC PANEL CREATININE [MASS/VOLUM E] IN SERUM OR PLASMA 1.49 mg/dL 0.7 - 1.3 01/24 H Specimen Type: PLASMA Comment: No hemolysis noted. Ordering Provider: MERLINE ESTES Report Released Date/Time: Jan 24, 2024 02:12 PM Reporting Lab: [place] [address] Performing Lab: [address] [phone] [facility] COMPREHEN SIVE METABOLIC PANEL UREA NITROGEN [MASS/VOLUM E] IN SERUM OR PLASMA 22.1 mg/dL 9.0 - 25.0 01/24 Specimen Type: PLASMA Comment: No hemolysis noted. Ordering Provider: MERLINE ESTES Report Released Date/Time: Jan 24, 2024 02:12 PM Reporting Lab: [place] [phone] Performing Lab: [address] [phone] [place] [address] [facility] COMPREHEN SIVE METABOLIC PANEL GLUCOSE [MASS/VOLUM E] IN SERUM OR PLASMA 125 mg/dL 72 - 99 01/24 H Specimen Type: PLASMA Comment: No hemolysis noted. Ordering Provider: MERLINE ESTES Report Released Date/Time: Jan 24, 2024 02:12 PM Reporting Lab: [address] [phone] Performing Lab: [address] [address] [facility] COMPREHEN SIVE METABOLIC PANEL SODIUM [MOLES/VOLU ME] IN SERUM OR PLASMA 143 meq/L 136 - 145 01/24 Specimen Type: PLASMA Comment: No hemolysis noted. Ordering Provider: MERLINE ESTES Report Released Date/Time: Jan 24, 2024 02:12 PM Reporting Lab: [place] [address] Performing Lab: [facility] [phone] [facility] COMPREHEN SIVE METABOLIC PANEL POTASSIUM [MOLES/VOLU ME] IN SERUM OR PLASMA 3.8 meq/L 3.5 - 5 01/24 Specimen Type: PLASMA Comment: No hemolysis noted. Ordering Provider: MERLINE ESTES Report Released Date/Time: Jan 24, 2024 02:12 PM Reporting Lab: [address] [address] Performing Lab: [address] [address] [facility] COMPREHEN SIVE METABOLIC PANEL CHLORIDE [MOLES/VOLU ME] IN SERUM OR PLASMA 112 meq/L 98 - 107 01/24 H Specimen Type: PLASMA Comment: No hemolysis noted. Ordering Provider: MERLINE ESTES Report Released Date/Time: Jan 24, 2024 02:12 PM Reporting Lab: [address] [phone] Performing Lab: [address] [phone] [facility] COMPREHEN SIVE METABOLIC PANEL CARBON DIOXIDE, TOTAL [MOLES/VOLU ME] IN SERUM OR PLASMA 22 meq/L 22 - 31 01/24 Specimen Type: PLASMA Comment: No hemolysis noted. Ordering Provider: MERLINE ESTES Report Released Date/Time: Jan 24, 2024 02:12 PM Reporting Lab: [facility] [address] [place] [address] Performing Lab: [address] [address] [facility] COMPREHEN SIVE METABOLIC PANEL CALCIUM [MASS/VOLUM E] IN SERUM OR PLASMA 9.9 mg/dL 8.4 - 10.4 01/24 Specimen Type: PLASMA Comment: No hemolysis noted. Ordering Provider: MERLINE ESTES Report Released Date/Time: Jan 24, 2024 02:12 PM Reporting Lab: [address] [place] [address] Performing Lab: [address] [phone] [facility] COMPREHEN SIVE METABOLIC PANEL PROTEIN [MASS/VOLUM E] IN SERUM OR PLASMA 7.5 g/dL 6 - 8.6 01/24 Specimen Type: PLASMA Comment: No hemolysis noted. Ordering Provider: MERLINE ESTES Report Released Date/Time: Jan 24, 2024 02:12 PM Reporting Lab: [address] [phone] Performing Lab: [address] [phone] [place] [address] [facility] COMPREHEN SIVE METABOLIC PANEL ALBUMIN [MASS/VOLUM E] IN SERUM OR PLASMA 4.0 g/dL 3.4 - 5 01/24 Specimen Type: PLASMA Comment: No hemolysis noted. Ordering Provider: MERLINE ESTES Report Released Date/Time: Jan 24, 2024 02:12 PM Reporting Lab: [address] [phone] Performing Lab: [address] [phone] [place] [address] [facility] COMPREHEN SIVE METABOLIC PANEL BILIRUBIN.T OTAL [MASS/VOLUM E] IN SERUM OR PLASMA 0.5 mg/dL 0.2 - 1.2 01/24 Specimen Type: PLASMA Comment: No hemolysis noted. Ordering Provider: MERLINE ESTES Report Released Date/Time: Jan 24, 2024 02:12 PM Reporting Lab: [address] [address] Performing Lab: [address] [address] [facility] COMPREHEN SIVE METABOLIC PANEL ALKALINE PHOSPHATASE [ENZYMATIC ACTIVITY/VO LUME] IN SERUM OR PLASMA 76 U/L 40 - 150 01/24 Specimen Type: PLASMA Comment: No hemolysis noted. Ordering Provider: MERLINE ESTES Report Released Date/Time: Jan 24, 2024 02:12 PM Reporting Lab: [facility] [address] [facility] [address] Performing Lab: [address] [address] [facility] COMPREHEN SIVE METABOLIC PANEL ASPARTATE AMINOTRANSF ERASE [ENZYMATIC ACTIVITY/VO LUME] IN SERUM OR PLASMA 15 U/L 5 - 34 01/24 Specimen Type: PLASMA Comment: No hemolysis noted. Ordering Provider: MERLINE ESTES Report Released Date/Time: Jan 24, 2024 02:12 PM Reporting Lab: [address] [address] Performing Lab: [address] [address] [facility] COMPREHEN SIVE METABOLIC PANEL ALANINE AMINOTRANSF ERASE [ENZYMATIC ACTIVITY/VO LUME] IN SERUM OR PLASMA 9 U/L 8 - 40 01/24 Specimen Type: PLASMA Comment: No hemolysis noted. Ordering Provider: MERLINE ESTES Report Released Date/Time: Jan 24, 2024 02:12 PM Reporting Lab: [address] [address] Performing Lab: [address] [phone] [place] [address] [facility] COMPREHEN SIVE METABOLIC PANEL GLOMERULAR FILTRATION RATE/1.73 SQ M.PREDICTED [VOLUME RATE/AREA] IN SERUM, PLASMA OR BLOOD BY CREATININE- BASED FORMULA (CKD-EPI 2020) 49.6 60 01/24 Specimen Type: PLASMA Comment: No hemolysis noted. Ordering Provider: MERLINE ESTES Report Released Date/Time: Jan 24, 2024 02:12 PM Reporting Lab: [facility] [address] [place] [phone] Performing Lab: [address] [phone] [place] [address] [facility] CBC LEUKOCYTES [#/VOLUME] IN BLOOD BY AUTOMATED COUNT 6.1 10*3/uL 3.6 - 11.2 01/24 Specimen Type: BLOOD No comment entered. Ordering Provider: MERLINE ESTES Report Released Date/Time: Jan 24, 2024 02:12 PM Reporting Lab: [facility] [address] [place] [address] Performing Lab: [facility] [address] [place] [phone] [facility] CBC ERYTHROCYTE S [#/VOLUME] IN BLOOD BY AUTOMATED COUNT 4.27 10*6/uL 4.10 - 5.70 01/24 Specimen Type: BLOOD No comment entered. Ordering Provider: MERLINE ESTES Report Released Date/Time: Jan 24, 2024 02:12 PM Reporting Lab: [facility] [address] [place] [address] Performing Lab: [address] [facility] CBC HEMOGLOBIN [MASS/VOLUM E] IN BLOOD 13.0 g/dL 13.1 - 16.8 01/24 L Specimen Type: BLOOD No comment entered. Ordering Provider: MERLINE ESTES Report Released Date/Time: Jan 24, 2024 02:12 PM Reporting Lab: [facility] [address] [place] [address] Performing Lab: [address] [facility] CBC HEMATOCRIT [VOLUME FRACTION] OF BLOOD 39.4 38.2 - 48.4 01/24 Specimen Type: BLOOD No comment entered. Ordering Provider: MERLINE ESTES Report Released Date/Time: Jan 24, 2024 02:12 PM Reporting Lab: [facility] [address] [place] [address] Performing Lab: [address] [facility] CBC MCV [ENTITIC VOLUME] BY AUTOMATED COUNT 92.3 fL 80.0 - 100.0 01/24 Specimen Type: BLOOD No comment entered. Ordering Provider: MERLINE ESTES Report Released Date/Time: Jan 24, 2024 02:12 PM Reporting Lab: [facility] [address] [place] [address] Performing Lab: [facility] [address] [place] [address] [phone] [facility] CBC MCH [ENTITIC MASS] BY AUTOMATED COUNT 30.4 pg 27.0 - 34.0 01/24 Specimen Type: BLOOD No comment entered. Ordering Provider: MERLINE ESTES Report Released Date/Time: Jan 24, 2024 02:12 PM Reporting Lab: [place] [address] Performing Lab: [address] [facility] CBC MCHC [MASS/VOLUM E] BY AUTOMATED COUNT 33.0 g/dL 33.0 - 36.0 01/24 Specimen Type: BLOOD No comment entered. Ordering Provider: MERLINE ESTES Report Released Date/Time: Jan 24, 2024 02:12 PM Reporting Lab: [place] [address] Performing Lab: [address] [facility] CBC PLATELETS [#/VOLUME] IN BLOOD BY AUTOMATED COUNT 275 10*3/uL 150 - 400 01/24 Specimen Type: BLOOD No comment entered. Ordering Provider: MERLINE ESTES Report Released Date/Time: Jan 24, 2024 02:12 PM Reporting Lab: [facility] [address] [place] [address] Performing Lab: [address] [facility] CBC PLATELET MEAN VOLUME [ENTITIC VOLUME] IN BLOOD BY AUTOMATED COUNT 10.6 fL 7.5 - 11.2 01/24 Specimen Type: BLOOD No comment entered. Ordering Provider: MERLINE ESTES Report Released Date/Time: Jan 24, 2024 02:12 PM Reporting Lab: [facility] [address] [facility] [address] Performing Lab: [facility] [address] [facility] [address] [facility] CBC ERYTHROCYTE DISTRIBUTIO N WIDTH [RATIO] BY AUTOMATED COUNT 12.8 11.8 - 15.1 01/24 Specimen Type: BLOOD No comment entered. Ordering Provider: MERLINE ESTES Report Released Date/Time: Jan 24, 2024 02:12 PM Reporting Lab: [facility] [address] [facility] [address] Performing Lab: [facility] [address] [facility] [address] [facility] CBC LYMPHOCYTES /100 LEUKOCYTES IN BLOOD BY AUTOMATED COUNT 34 01/24 Specimen Type: BLOOD No comment entered. Ordering Provider: MERLINE ESTES Report Released Date/Time: Jan 24, 2024 02:12 PM Reporting Lab: [facility] [address] [facility] [address] Performing Lab: [facility] [address] [facility] [address] [facility] CBC MONOCYTES/1 00 LEUKOCYTES IN BLOOD BY AUTOMATED COUNT 10 01/24 Specimen Type: BLOOD No comment entered. Ordering Provider: MERLINE ESTES Report Released Date/Time: Jan 24, 2024 02:12 PM Reporting Lab: [facility] [address] [facility] [address] Performing Lab: [facility] [address] [facility] [address] [facility] CBC NEUTROPHILS /100 LEUKOCYTES IN BLOOD BY AUTOMATED COUNT 52 01/24 Specimen Type: BLOOD No comment entered. Ordering Provider: MERLINE ESTES Report Released Date/Time: Jan 24, 2024 02:12 PM Reporting Lab: [facility] [address] [facility] [address] Performing Lab: [facility] [address] [facility] [address] [facility] CBC EOSINOPHILS /100 LEUKOCYTES IN BLOOD BY AUTOMATED COUNT 3 01/24 Specimen Type: BLOOD No comment entered. Ordering Provider: MERLINE ESTES Report Released Date/Time: Jan 24, 2024 02:12 PM Reporting Lab: [address] [address] Performing Lab: [address] [phone] [place] [address] [facility]OC CBC BASOPHILS/1 00 LEUKOCYTES IN BLOOD BY AUTOMATED COUNT 1 01/24 Specimen Type: BLOOD No comment entered. Ordering Provider: MERLINE ESTES Report Released Date/Time: Jan 24, 2024 02:12 PM Reporting Lab: [place] [phone] Performing Lab: [address] [facility] CBC LYMPHOCYTES [#/VOLUME] IN BLOOD BY AUTOMATED COUNT 2.07 10*3/uL 0.77 - 4.50 01/24 Specimen Type: BLOOD No comment entered. Ordering Provider: MERLINE ESTES Report Released Date/Time: Jan 24, 2024 02:12 PM Reporting Lab: [place] [phone] Performing Lab: [address] [phone] [place] [address] [facility]OC CBC MONOCYTES [#/VOLUME] IN BLOOD BY AUTOMATED COUNT 0.62 10*3/uL 0.19 - 0.80 01/24 Specimen Type: BLOOD No comment entered. Ordering Provider: MERLINE ESTES Report Released Date/Time: Jan 24, 2024 02:12 PM Reporting Lab: [facility] [address] [place] [address] Performing Lab: [address] [address] [facility] CBC NEUTROPHILS [#/VOLUME] IN BLOOD BY AUTOMATED COUNT 3.21 10*3/uL 2.10 - 8.00 01/24 Specimen Type: BLOOD No comment entered. Ordering Provider: MERLINE ESTES Report Released Date/Time: Jan 24, 2024 02:12 PM Reporting Lab: [place] [address] Performing Lab: [phone] [place] [address] [facility] CBC EOSINOPHILS [#/VOLUME] IN BLOOD BY AUTOMATED COUNT 0.19 10*3/uL 0.00 - 0.60 01/24 Specimen Type: BLOOD No comment entered. Ordering Provider: MERLINE ESTES Report Released Date/Time: Jan 24, 2024 02:12 PM Reporting Lab: [place] [address] Performing Lab: [address] [facility] CBC BASOPHILS [#/VOLUME] IN BLOOD BY AUTOMATED COUNT 0.04 10*3/uL 0.00 - 0.20 01/24 Specimen Type: BLOOD No comment entered. Ordering Provider: MERLINE ESTES Report Released Date/Time: Jan 24, 2024 02:12 PM Reporting Lab: [place] [address] Performing Lab: [address] [facility] URINALYSI S W/ CX REFLEX (STL-PB) COLOR OF URINE Yellow 01/24 Specimen Type: URINE No comment entered. Ordering Provider: MERLINE ESTES Report Released Date/Time: Jan 24, 2024 02:12 PM Reporting Lab: [place] [address] Performing Lab: [address] [facility] URINALYSI S W/ CX REFLEX (STL-PB) BILIRUBIN.T OTAL [PRESENCE] IN URINE BY TEST STRIP Negative mg/dL 01/24 Specimen Type: URINE No comment entered. Ordering Provider: MERLINE ESTES Report Released Date/Time: Jan 24, 2024 02:12 PM Reporting Lab: [address] [address] Performing Lab: [address] [address] [facility] URINALYSI S W/ CX REFLEX (STL-PB) PH OF URINE BY TEST STRIP 6.0 5.0 - 8.0 01/24 Specimen Type: URINE No comment entered. Ordering Provider: MERLINE ESTES Report Released Date/Time: Jan 24, 2024 02:12 PM Reporting Lab: [address] [address] Performing Lab: [address] [phone] [facility] URINALYSI S W/ CX REFLEX (STL-PB) LEUKOCYTES [#/AREA] IN URINE SEDIMENT BY MICROSCOPY HIGH POWER FIELD 16 /[HPF] 0 - 5 01/24 H Specimen Type: URINE No comment entered. Ordering Provider: MERLINE ESTES Report Released Date/Time: Jan 24, 2024 02:12 PM Reporting Lab: [address] [address] Performing Lab: [address] [address] [facility] URINALYSI S W/ CX REFLEX (STL-PB) ERYTHROCYTE S [#/VOLUME] IN URINE SEDIMENT BY MICROSCOPY HIGH POWER FIELD 3 /[HPF] 0 - 5 01/24 Specimen Type: URINE No comment entered. Ordering Provider: MERLINE ESTES Report Released Date/Time: Jan 24, 2024 02:12 PM Reporting Lab: [address] [phone] Performing Lab: [address] [phone] [facility] URINALYSI S W/ CX REFLEX (STL-PB) APPEARANCE OF URINE Clear 01/24 Specimen Type: URINE No comment entered. Ordering Provider: MERLINE ESTES Report Released Date/Time: Jan 24, 2024 02:12 PM Reporting Lab: [address] [phone] Performing Lab: [address] [phone] [facility] URINALYSI S W/ CX REFLEX (STL-PB) NITRITE [PRESENCE] IN URINE BY TEST STRIP Negative mg/dL 01/24 Specimen Type: URINE No comment entered. Ordering Provider: MERLINE ESTES Report Released Date/Time: Jan 24, 2024 02:12 PM Reporting Lab: [address] [phone] Performing Lab: [address] [phone] [place] [address] [facility] URINALYSI S W/ CX REFLEX (STL-PB) BACTERIA [PRESENCE] IN URINE SEDIMENT BY LIGHT MICROSCOPY RARE/[HP F] 01/24 Specimen Type: URINE No comment entered. Ordering Provider: MERLINE ESTES Report Released Date/Time: Jan 24, 2024 02:12 PM Reporting Lab: [address] [phone] Performing Lab: [address] [phone] [facility] URINALYSI S W/ CX REFLEX (STL-PB) MUCUS [PRESENCE] IN URINE SEDIMENT BY LIGHT MICROSCOPY RARE/[LP F] 01/24 Specimen Type: URINE No comment entered. Ordering Provider: MERLINE ESTES Report Released Date/Time: Jan 24, 2024 02:12 PM Reporting Lab: [address] [address] Performing Lab: [address] [phone] [place] [address] [facility]OC URINALYSI S W/ CX REFLEX (STL-PB) HYALINE CASTS [#/AREA] IN URINE SEDIMENT BY MICROSCOPY LOW POWER FIELD 18 /[LPF] 0 - 5 01/24 Specimen Type: URINE No comment entered. Ordering Provider: MERLINE ESTES Report Released Date/Time: Jan 24, 2024 02:12 PM Reporting Lab: [place] [address] Performing Lab: [place] [phone] [facility] URINALYSI S W/ CX REFLEX (STL-PB) GLUCOSE [MASS/VOLUM E] IN URINE BY TEST STRIP Normalmg /dL 01/24 Specimen Type: URINE No comment entered. Ordering Provider: MERLINE ESTES Report Released Date/Time: Jan 24, 2024 02:12 PM Reporting Lab: [place] [address] Performing Lab: [address] [phone] [place] [address] [facility]OC URINALYSI S W/ CX REFLEX (STL-PB) PROTEIN [MASS/VOLUM E] IN URINE BY TEST STRIP 30 mg/dL 01/24 H Specimen Type: URINE No comment entered. Ordering Provider: MERLINE ESTES Report Released Date/Time: Jan 24, 2024 02:12 PM Reporting Lab: [place] [phone] Performing Lab: [address] [phone] [facility] URINALYSI S W/ CX REFLEX (STL-PB) URN.UROBILI NOGEN Normalmg /dL 01/24 Specimen Type: URINE No comment entered. Ordering Provider: MERLINE ESTES Report Released Date/Time: Jan 24, 2024 02:12 PM Reporting Lab: [place] [address] Performing Lab: [address] [phone] [facility] URINALYSI S W/ CX REFLEX (STL-PB) HEMOGLOBIN [MASS/VOLUM E] IN URINE BY TEST STRIP Negative mg/dL 01/24 Specimen Type: URINE No comment entered. Ordering Provider: MERLINE ESTES Report Released Date/Time: Jan 24, 2024 02:12 PM Reporting Lab: [place] [address] Performing Lab: [place] [phone] [facility] URINALYSI S W/ CX REFLEX (STL-PB) KETONES [MASS/VOLUM E] IN URINE BY TEST STRIP Negative mg/dL 01/24 Specimen Type: URINE No comment entered. Ordering Provider: MERLINE ESTES Report Released Date/Time: Jan 24, 2024 02:12 PM Reporting Lab: [place] [phone] Performing Lab: [address] [phone] [place] [address] [facility]OC URINALYSI S W/ CX REFLEX (STL-PB) URN.LEUK.ES T. 250 mg/dL 01/24 H Specimen Type: URINE No comment entered. Ordering Provider: MERLINE ESTES Report Released Date/Time: Jan 24, 2024 02:12 PM Reporting Lab: [place] [address] Performing Lab: [address] [phone] [facility] URINALYSI S W/ CX REFLEX (STL-PB) SPECIFIC GRAVITY OF URINE 1.026 01/24 Specimen Type: URINE No comment entered. Ordering Provider: MERLINE ESTES Report Released Date/Time: Jan 24, 2024 02:12 PM Reporting Lab: [place] [address] Performing Lab: [facility] [address] [place] [address] [facility] URINALYSI S W/ CX REFLEX (STL-PB) *URINE FOR REFLEX CULTURE [facility] 01/24 Specimen Type: URINE No comment entered. Ordering Provider: MERLINE ESTES Report Released Date/Time: Jan 24, 2024 02:12 PM Reporting Lab: [facility] [address] [place] [address] Performing Lab: [facility] [address] [facility] [address] [facility] Vital Signs Combined list of inpatient and outpatient Vital Signs from Department of Defense and Veterans Affairs, ranging from 12 months to all on record, depending upon the facility. Vital Sign Value Date Comments Source SYSTOLIC BLOOD PRESSURE 104 07/08/2024 11:13:08 [facility] DIASTOLIC BLOOD PRESSURE 59 07/08/2024 11[facility]13[facility] 95 07/08/2024 11:13:08 [facility] WEIGHT 410.9 07/08/2024 11:13:08 [facility] BMI 57 kg/m2 07/08/2024 11:13:08 [facility] PAIN 6 07/08/2024 11:13:08 [facility] TEMPERATURE 97.5 07/08/2024 11:13:08 [facility] PULSE 78 07/08/2024 11:13:08 [facility] RESPIRATION 20 07/08/2024 11:13:08 [facility] WEIGHT 409.2 07/02/2024 [facility]07[facility] 57 kg/m2 07/02/[facility]:07[facility] SYSTOLIC BLOOD PRESSURE 118 06/02/2024 09:41:38 [facility] DIASTOLIC BLOOD PRESSURE 73 06/02/2024 09:41:38 [facility] PULSE OXIMETRY 95 06/02/2024 09:41:38 [facility] WEIGHT 412 06/02/2024 09:41:38 [facility] BMI 58 kg/m2 06/02/2024 09:41:38 [facility] PAIN 4 06/02/2024 09:41:38 [facility] TEMPERATURE 98.2 06/02/2024 09:41:38 [facility] PULSE 79 06/02/2024 09:41:38 [facility] RESPIRATION 18 06/02/2024 09:41:38 [facility] SYSTOLIC BLOOD PRESSURE 130 04/15/2024 13:16:24 [facility] DIASTOLIC BLOOD PRESSURE 76 04/15/2024 13:16:24 [facility] PULSE OXIMETRY 97 04/15/2024 [facility]16[facility] WEIGHT 409 04/15/2024 13:16:24 [facility] BMI 57 kg/m2 04/15/2024 13:16:24 [facility] PAIN 4 04/15/2024 13:16:24 [facility] HEIGHT 71 04/15/2024 13:16:24 [facility] TEMPERATURE 97.7 04/15/2024 13:16:24 [facility] PULSE 87 04/15/2024 13:16:24 [facility] RESPIRATION 18 04/15/2024 13:16:24 [facility] SYSTOLIC BLOOD PRESSURE 170 04/05/2024 09:40:00 [facility] DIASTOLIC BLOOD PRESSURE 90 04/05/2024 09:40:00 [facility] PAIN 3 04/05/2024 09:40:00 [facility] TEMPERATURE 98 04/05/2024 09:40:00 [facility] PULSE 80 04/05/2024 09:40:00 [facility] RESPIRATION 18 04/05/2024 09:40:00 [facility] Encounters Combined list of: 1) Encounters from Department of Veterans Affairs facilities going backup to the last 18 months, not all [place] inpatient encounters are included; 2) Encounters from the Department of Defense facilities going backup to 280 months. Location Location Details Encounter Type Encounter Number Reason For Visit Attending Provider ADM Date DC Date Status Disposition Source [facility] Outpatient Encounter [id number] 02/01 [facility] Outpatient Encounter [id number] 02/02 [facility] HC PRO PHONE CALL 21-30 MIN [id number] Diagnos is: ICD-10- CM M17.0 Maximiliano al primary osteoar thritis of knee ARABELLALONNIEOlga Pimentel 02/05 [facility] OFFICE O/P EST LOW 20-29 MIN [id number] Diagnos is: ICD-10- CM B35.1 Tinea unguium MICHELINE LOU 02/07 [facility] N [facility] Outpatient Encounter [id number] 02/12 [facility] BHV ASSMT/REAS SESSMENT [id number] Diagnos is: ICD-10- CM Z63.6 Depende nt relativ e needing care at home HILL ESTES 02/15 [facility] PROGRAM INTAKE ASSESSMENT [id number] Diagnos is: ICD-10- CM M10.9 Gout, unspeci fied JESSICAORBAKARI,L LOUIE L 02/20 [facility] Outpatient Encounter [id number] 02/21 [facility] Outpatient Encounter [id number] CATERINA JESUS S 03/06 [facility] Outpatient Encounter [id number] DWAYNE HERNANDEZ A A 03/06 [facility] Outpatient Encounter [id number] 03/29 [facility] HC PRO PHONE CALL 5-10 MIN [id number] Diagnos is: ICD-10- CM R26.2 Difficu lty in walking , not elsewhe re classif ied JULIOCESARSHAVON Lara 04/30 [facility] Outpatient Encounter [id number] 05/08 [facility] OFFICE O/P EST LOW 20 MIN [id number] Diagnos is: ICD-10- CM B35.1 Tinea unguium MICHELINE LOU 05/08 [facility] OFFICE O/P EST MOD 30 MIN [id number] Diagnos is: ICD-10- CM M10.9 Gout, unspeci fied POOLEELVI M 05/08 [facility] Outpatient Encounter [id number] 05/08 [facility] OFFICE O/P EST LOW 20 MIN [id number] Diagnos is: ICD-10- CM I10 Essenti al (primar y) hyperte nsAlicia Cook L 05/10 [facility] Outpatient Encounter [id number] Diagnos is: ICD-10- CM 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 TRISTIAN SONG 05/15 [facility] [place] OFF/OP CNSLTJ NEW/EST LOW 30 04018-7.65 [id number] Diagnos is: ICD-10- CM 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 Outpatient Encounter [id number] 08/14 [facility] OFFICE O/P EST HI 40 MIN 04741-9.65 [id number] Diagnos is: ICD-10- CM M10.9 Gout, unspeci fied ELVI POOLE M 09/10 [facility] Outpatient Encounter [id number] 11/06 [facility] OFFICE O/P EST LOW 20 MIN [id number] [id number] Diagnos is: ICD-10- CM I10 Essenti al (primar y) hyperte lorettaion Alicia ESTES 11/06 [facility] Outpatient Encounter [id number] [id number] Alicia ESTES 11/07 [facility] PRO PHONE CALL 11-20 MIN [id number] [id number] Diagnos is: ICD-10- CM I10 Essenti al (primar y) hyperte JUAN MANUEL Sparrow 11/07 [facility] Outpatient Encounter [id number] 11/12 [facility] Outpatient Encounter [id number] [id number] JUAN MANUEL COCHRAN 11/12 [facility] PRO PHONE CALL 21-30 MIN [id number] [id number] 5 Diagnos is: ICD-10- CM I10 Essenti al (primar y) hyperte JUAN MANUEL Sparrow 11/12 [facility] Outpatient Encounter [id number] 11/12 [facility] PRO PHONE CALL 5-10 MIN [id number] [id number] 4 Diagnos is: ICD-10- CM I10 Essenti al (primar y) hyperte JUAN MANUEL Sparrow P 11/18 [facility] Outpatient Encounter [id number] [id number] 12/05 [facility] [place] [id number] [id number] Diagnos is: ICD-10- CM E66.01 Morbid (severe ) obesity due to excess calorie SANDRO Mtz 12/10 [facility] OFFICE O/P EST MOD 30 MIN [id number] [id number] Diagnos is: ICD-10- CM M10.9 Gout, unspeci AYANA Benson 12/23 [facility] OFFICE O/P EST MOD 30 MIN [id number] [id number] 3 Diagnos is: ICD-10- CM I10 Essenti al (primar y) hyperte JUAN MANUEL Sparrow P 12/30 [facility] PRO PHONE CALL 11-20 MIN [id number] [id number] Diagnos is: ICD-10- CM I10 Essenti al (primar y) hyperte elaine COCHRAN JUAN MANUEL P 01/01 [facility] Outpatient Encounter [id number] [id number] 01/06 [facility] OFFICE O/P EST LOW 20 MIN [id number] [id number] Diagnos is: ICD-10- CM I10 Essenti al (primar y) hyperte Alicia Liz 01/23 [facility] OFFICE O/P EST MOD 30 MIN [id number] [id number] Diagnos is: ICD-10- CM I10 Essenti al (primar y) hypertJUAN MANUEL Weaver P 01/28 [facility] Outpatient Encounter [id number] [id number] 01/28 [facility] PRO PHONE CALL 11-20 MIN [id number] [id number] Diagnos is: ICD-10- CM I10 Essenti al (primar y) hypertlara GERMANLAMONTLUIS JUAN MANUEL P 01/31 [facility] QNHP OL DIG ASSMT&MGMT 5-10 24112-7.65 [id number] 3 Diagnos is: ICD-10- CM M10.9 Gout, unspeci KVNG Murphy P 02/05 [facility] PRO PHONE CALL 5-10 MIN [id number] [id number] 1 Diagnos is: ICD-10- CM I10 Essenti al (primar y) sharita GERMANJUAN MANUEL WHITE P 02/12 [facility] OFFICE O/P EST LOW 20 MIN [id number] [id number] 2 Diagnos is: ICD-10- CM H25.13 Age-rel ated nuclear catarac t, bilater hermes RAHMAN MA TTHEW C 02/17 [facility] Outpatient Encounter [id number] [id number] 02/17 [facility] MTMS BY PHARM SCRAP BUNCH MAKER 15 MIN [id number] [id number] Diagnos is: ICD-10- CM E78.5 Hyperli pidemia , unspeci juan CASILLASBigg MARIA DEL ROSARIO B 02/19 [facility] Outpatient Encounter [id number] [id number] 02/23 [facility] Outpatient Encounter [id number] [id number] 02/23 [facility] Outpatient Encounter [id number] [id number] 02/26 [facility] OFFICE O/P EST MOD 30 MIN [id number] [id number] 2 Diagnos is: ICD-10- CM I10 Essenti al (primar y) hyperte JUAN MANUEL Sparrow P 02/26 [facility] MTMS BY PHARM EST 15 MIN [id number] [id number] Diagnos is: ICD-10- CM E78.5 Hyperli pidemia , unspeci juan CASILLASBiggIN B 03/[address] [facility] HC PRO PHONE CALL 5-10 MIN 72907-2.65 [id number] Diagnos is: ICD-10- CM I10 Essenti al (primar y) hyperte JUAN MANUEL Sparrow P 03/11 [facility] Outpatient Encounter [id number] [id number] 03/13 [facility] OFFICE O/P EST MOD 30 MIN 64499-4.65 [id number] 6 Diagnos is: ICD-10- CM I10 Essenti al (primar y) hyperte lorettathalia JUAN MANUEL COCHRAN P 03/31 [facility] OFFICE O/P EST LOW 20 MIN [id number] [id number] Diagnos is: ICD-10- CM J20.9 Acute bronchi tis, unspeci fied DORIAN BE D 04/03 [facility] PT EDUCATION NOC INDIVID [id number] [id number] Diagnos is: ICD-10- CM R09.81 Nasal congest ion JOSE BERKOWITZ MATTHEW 04/03 [facility] Outpatient Encounter [id number] [id number] Herlinda FREITAS A 04/05 [facility] EMERGENCY DEPT VISIT MOD MDM 39703-6.65 [id number] 5 Diagnos is: ICD-10- CM M19.90 Unspeci fied osteoar thritis , unspeci fied site Herlinda FREITAS A 04/05 [facility] Outpatient Encounter [id number] [id number] Herlinda FREITAS A 04/05 [facility] Outpatient Encounter [id number] [id number] 04/08 [facility] Outpatient Encounter [id number] [id number] 04/14 [facility] OFF/OP EST MAY X REQ PHY/QHP 62933-9.65 [id number] 1 Diagnos is: ICD-10- CM I10 Essenti al (primar y) hyperte lorettathalia JOSELINE GARCIA D 04/15 [facility] Outpatient Encounter [id number] [id number] 04/16 [facility] MTMS BY PHARM EST 15 MIN [id number] [id number] Diagnos is: ICD-10- CM E78.5 Hyperli pidemia , unspeci fied Bigg CASILLAS B 04/16 [facility] Outpatient Encounter [id number] [id number] 04/18 [facility] Outpatient Encounter [id number] [id number] 04/24 [facility] Outpatient Encounter [id number] [id number] 04/25 [facility] PH1 ASSMT&MGMT NQHP 5-10 [id number] [id number] 5 Diagnos is: ICD-10- CM I10 Essenti al (primar y) hyperte JUAN MANUEL Sparrow P 04/25 [facility] OFFICE O/P EST MOD 30 MIN [id number] [id number] Diagnos is: ICD-10- CM I10 Essenti al (primar y) hyperte JUAN MANUEL Sparrow P 05/02 [facility] Outpatient Encounter [id number] [id number] MIGUEL NICE 05/15 [facility] Outpatient Encounter [id number] [id number] 05/23 [facility] OFF/OP EST MAY X REQ PHY/QHP 14745-4.65 [id number] 5 Diagnos is: ICD-10- CM I10 Essenti al (primar y) hyperte elaine COCHRANJUAN MANUEL P 05/29 [facility] OFFICE O/P EST MOD 30 MIN [id number] [id number] 6 Diagnos is: ICD-10- CM I10 Essenti al (primar y) hyperte elaine COCHRANJUAN MANUEL P 05/30 [facility] OFFICE O/P EST MOD 30 MIN [id number] [id number] Diagnos is: ICD-10- CM E11.65 Type 2 diabete s mellitu s with hypergl ycemia BEA PENA 06/02 [facility] Outpatient Encounter [id number] [id number] 06/02 [facility] Outpatient Encounter [id number] [id number] 06/02 [facility] OFF/OP EST MAY X REQ PHY/QHP [id number] [id number] 5 Diagnos is: ICD-10- CM M65.332 Trigger finger, left middle finger AYANA GEE 06/02 [facility] Outpatient Encounter [id number] [id number] 06/16 [facility] PH1 ASSMT&MGMT NQHP 5-10 [id number] [id number] Diagnos is: ICD-10- CM I10 Essenti al (primar y) hyperte elaine GERMANJUAN MANUEL WHITE P 06/16 [facility] En[facility] [id number] [id number] 06/26 [facility] Outpatient Encounter [id number] [id number] 06/27 [facility] NUTRITIONA L COUNSELING , DIET [id number] [id number] Diagnos is: ICD-10- CM E66.01 Morbid (severe ) obesity due to excess calorie s SANDRO MG D 07/02 [facility] Outpatient Encounter [id number] [id number] ALAN DYER 07/04 [facility] OFFICE O/P EST LOW 20 MIN [id number] [id number] Diagnos is: ICD-10- CM I10 Essenti al (primar y) hyperte nsAlicia Cook 07/08 [facility] Social History Combined list of available smoking, tobacco, and other social history from Department of Defense and Veterans Affairs facilities. Social History Type Response Date Comment Sour e Tobacco smoking status NHIS VA-TOBACCO USE FORMER CIGARETTES 07/04/2024 [facility] History of tobacco use VA-TOBACCO NEVER USED OTHER TYPE 07/04/2024 [facility] History of tobacco use VA-TOBACCO QUIT 15 YRS OR MORE 05/10/2023 [facility] History of tobacco use VA-TOBACCO NEVER USED 06/06/2022 [facility] History of tobacco use VA-TOBACCO QUIT 15 YRS OR MORE 03/15/2020 [facility] History of tobacco use VA-TOBACCO NEVER USED 01/29/2018 [facility] History of tobacco use LIFETIME NON-USER OF TOBACCO 10/12/2016 [facility] History of tobacco use LIFETIME NON-USER OF TOBACCO 08/02/2015 [facility] History of tobacco use LIFETIME NON-USER OF TOBACCO 10/22/2014 [facility] History of tobacco use QUIT TOBACCO >7 YEARS AGO 01/08/2009 [facility] Plan of Care List of future care activities from Department of [facility] Affairs facilities. Additional future care activities may be listed in the Assessment and Plan section. Date/Time Care Activity Care Activity Detail Facili ty 08/01/2024 AMBULATORY - REHAB MEDICINE AMBULATORY - REHAB MEDICINE [facility]
--- OUTSIDE RECORDS SUMMARY | 2024-07-27 07:33 | XMS_ITS | Encounter Summary ---
Author Name [facility] [place] [facility] [place] [facility] [place] Address [address] [place] [address] Care Team Providers Care Commercial Sales Consultant Name Role Phone MARIA DEL ROSARIO ESTES [...] PART A Feb 01, 2016 PART A [id number] [id number] MARIA DEL ROSARIORODNEY JOSEEdwar PATIENT MEDICARE (WNR) MEDICARE (M) PART B Feb 01, 2016 PART B [id number] 98A MARIA DEL ROSARIORODNEY [place] PATIENT MEDICARE (WNR) MEDICARE (M) PART B Feb 01, 2016 PART B [id number] MARIA DEL ROSARIORODNEY [place] PATIENT MEDICARE (WNR) MEDICARE (M) PART A Feb 01, 2016 PART A [id number] MARIA DEL ROSARIORODNEY [place] PATIENT [facility] (WNR) MEDICARE ADVANTAGE [facility](W NR) Jan 01, 2024 [id number] RODNEY MIX PATIENT Selected Encounter This section includes the information on record at [facility] for the Encounter. Date/Time Encounter Type Encounter Description Reason Pro vider Source IHE Encounter Template Text not used by [facility]
--- OUTSIDE RECORDS SUMMARY | 2024-07-27 07:33 | XMS_ITS | Clinical Summary ---
Author Organization [facility] Address [address] [place] [address] Care Team Providers Care Display Artist Name Role Phone Unavailable Primary Care Provider Unavailabl e Source Comments [facility],non-owned Affiliates and Associated Physician Practices is amultiple site organization consisting of ambulatory clinics and hospital sitesin [place] and [place]. This disclosure is being madepursuant to the Care Everywhere program and may not contain all information available regarding this patient. 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
--- OUTSIDE RECORDS SUMMARY | 2024-07-27 07:33 | XMS_ITS ---
Author Name [facility] [facility] [place] [facility] [place] Address [address] [place] [address] Care Team Providers Care Steeping Press Operator Name Role Phone MARIA DEL ROSARIO [...] PART A Feb 01, 2016 PART A [id number] 98A MARIA DEL ROSARIORODNEY [place]ON[place]IA[place] PATIENT MEDICARE (WNR) MEDICARE (M) PART B Feb 01, 2016 PART B [id number] [id number] RODNEY MIX PATIENT MEDICARE (WNR) MEDICARE (M) PART B Feb 01, 2016 PART B [id number] RODNEY MIX PATIENT MEDICARE (WNR) MEDICARE (M) PART A Feb 01, 2016 PART A [id number] RODNEY MIX PATIENT [facility] (WNR) MEDICARE ADVANTAGE [facility](W NR) Jan 01, 2024 [id number] RODNEY MIX PATIENT Selected Encounter This section includes the [place] at [place] for the Encounter. Date/Time Encounter Type Encounter Description Reason Provider Source Apr 15, 2024 12:00 PM OFF/OP EST JULY X REQ PHY/QHP PRIMARY CARE/MEDICINE ICD-10-CM I10 Essential (primary) hypertension VALENTINA ROBERTS IHGiulia Encounter Template Text not used by [place] Assessments - Encounter Diagnoses This section includes the primary and secondary diagnoses documented for the Encounter. Date/Time Primary/Secondary Diagnosis Diagnosis Name Provider Source Apr 22, 2024 10:50 AM PRIMARY Essential (primary) hypertension ABDULAZIZ SAWANT [facility] Apr 22, 2024 10:50 AM SECONDARY Encounter for immunization LYLE ROBERTS [facility] Plan of Treatment: Future Appointments (+ 6 months) and Future Tests (+/- 45 days) The Plan of Treatment section includes future care activities for the patient from all [place] treatmentfacilities. This section includes future appointments and future orders which are active, pending or scheduled. Future Appointments This section includes appointments that were scheduled to occur 6 months from the date of the Encounter, up to a maximum of 20 appointments. The data comes from all [place] treatment facilities. Appointment Date/Time Appointment Type Appointme nt Facility Name Apr 16, 2024 11:00 AM [facility]ORY [facility] Apr 16, 2024 01:30 PM AM[facility]ULATORY - NONE [facility] May 23, 2024 02:30 PM AMBULATORY - MEDICINE [facility] Jun 02, 2024 10:30 AM AMBULATORY - MEDICINE [facility] Jun 17, 2024 10:30 AM AMBULATORY - MEDICINE [facility] Jun 26, 2024 03:00 PM AMBULATORY - MEDICINE [facility] Jul 02, 2024 11:00 AM AM[facility]ULATORY [facility] NONE [facility] Jul 08, 2024 01:00 PM AMBULATORY - MEDICINE [facility] August 01, 2024 09:00 AM AMBULATORY - REHAB MEDICIN E [facility] Sep 01, 2024 10:30 AM AMBULATORY - MEDICINE [facility] Sep 23, 2024 10:00 AM AMBULATORY - MEDICINE [facility] Sep 30, 2024 01:00 PM AMBULATORY - NONE [facility] Vital Signs: All taken on the encounter date This section contains inpatient and outpatient Vital Signs collected on the date of the Encounter. Date/Time Temperature Pulse Blood Pressure Respiratory Rate SP02 Pain Height Weight Body Mass Index Source Apr 15, 2024 01:16 PM 97.7 87 130/76 18 97 4 71 409 57 [facility] Immunizations: All administered on the encounter date This section contains immunizations associated to the Encounter. Immunization Series Date Issued Administered By Site Reaction Lot Number CVX Code Drug Para Educator Comment(s) Source INFLUENZA, HIGH-DOSE, TRIVALENT, PF Apr 15, 2024 VALENTINA ROBERTS RIGHT DELTO ID [id number] SANOFI PASTEUR Completed Series, ADMINISTERE D [facility] Social History: Smoking Status (Most current) and Tobacco Use (All prior to encounter date) This section includes the most current, and the historical, smoking and tobacco- related health factors from the [place] facility where the Encounter took place. Current Smoking Status This section includes the most current smoking, or tobacco-related health factor, from the [place] facility where the Encounter took place. Date/Time Current Smoking Status Comment Tabitha sainz Jun 06, 2022 10:00 AM VA-TOBACCO NEVER USED [facility] Tobacco Use History This section includes a history of the smoking, or tobacco-related health factors, that were collected on or before the date of the Encounter. The data comes from the [place] facility where the Encounter took place. Date/Time Smoking Status/Tobacco Use Comment F acility Mar 15, 2020 02:00 PM VA-TOBACCO FORMER USER [facility] Mar 15, 2020 02:00 PM VA-TOBACCO QUIT 15 YRS OR MORE [facility] Jan 29, 2018 10:49 AM VA-TOBACCO NEVER USED [facility] Oct 12, 2016 09:53 AM LIFETIME NON-USER OF TOBACCO [facility] August 02, 2015 10:40 AM LIFETIME NON-USER OF TOBACCO [facility] Oct 22, 2014 09:50 AM LIFETIME NON-USER OF TOBACCO [facility] Jan 08, 2009 08:24 AM QUIT TOBACCO >7 YEARS AGO [facility] Encounter Notes: All associated encounter notes This section contains the clinical notes associated to the Encounter. Date/Time Encounter Note(s) Provider Source Apr 15, 2024 03:59 PM NURSING NOTE: LOCAL TITLE: V15 PACT FACE TO FACE NOTE ST STANDARD TITLE: NURSING NOTE DATE OF NOTE: APR 15, 2024@15:59 ENTRY DATE: APR 15, 2024@15:59:22 AUTHOR: LYLE ROBERTS EXP COSIGNER: URGENCY: STATUS: COMPLETED Influenza Immunization - L,N,P,PH,U: Influenza, High-Dose, Trivalent, Preservative Free (Fluzone-Syringe) Administered: INFLUENZA, HIGH-DOSE, TRIVALENT, PF Date Administered: Apr 15, 2024 12:00 Series: Complete Para Educator: SANChalkable PASTEUR Lot: [id number] Exp Date: Sep 29, 2024 [facility]: [id number] Admin Route/Site: INTRAMUSCULAR/RIGHT DELTOID Dosage: 0.5mL Vaccine Information Statement(s): INFLUENZA(FLU) VACC(INACTIVATED OR RECOMBINANT)VIS Nov 05, 2020 ([facility]) Order By: Policy Administered By: Lyle Roberts [...] LICENSED PRACTICAL NURSE Signed: 04/15/2024 16:03 LYLE ROBERTS [facility]
--- OUTSIDE RECORDS SUMMARY | 2024-07-27 07:33 | XMS_ITS | Encounter Summary ---
Author Name [facility] [place] [facility] [place] [facility] [place] Address [address] [place] [address] Care Team Providers Care Area Director Of Home Health Sales Name Role Phone MARIA DEL ROSARIO ESTES [...] PART A Feb 01, 2016 PART A [id number] MARIA DEL ROSARIORONDEY [place] PATIENT MEDICARE (WNR) MEDICARE (M) PART B Feb 01, 2016 PART B [id number] RODNEY MIX PATIENT MEDICARE (WNR) MEDICARE (M) PART A Feb 01, 2016 PART A [id number] RODNEY MIX [place] PATIENT MEDICARE (WNR) MEDICARE (M) PART B Feb 01, 2016 PART B [id number] RODNEY MIX PATIENT [facility] (WNR) MEDICARE ADVANTAGE [facility](W NR) Jan 01, 2024 [id number] [phone] RODNEY MIX PATIENT Selected Encounter This section includes the information on record at [place] for the Encounter. Date/Time Encounter Type Encounter Description Reason Provider Source Jul 02, 2024 11:00 AM NUTRITIONAL COUNSELING, DIET PRIMARY CARE/MEDICINE ICD-10-CM E66.01 Morbid (severe) obesity due to excess calories [facility] Encounter Template Text not used by [place] Assessments - Encounter Diagnoses This section includes the primary and secondary diagnoses documented for the Encounter. Date/Time Primary/Secondary Diagnosis Diagnosis Name Provider Source Jul 02, 2024 12:48 PM PRIMARY Morbid (severe) obesity due to excess calories [facility] Jul 02, 2024 12:48 PM SECONDARY Dietary counseling and surveillance [facility] Plan of Treatment: Future Appointments (+ 6 months) and Future Tests (+/- 45 days) The Plan of Treatment section includes future care activities for the [facility] [place] [facility] This section includes future appointments and future orders which are active, pending or scheduled. Future Appointments This section includes appointments that were scheduled to occur 6 months from the date of the Encounter, up to a maximum of 20 appointments. The data comes from all [place] treatment facilities. Appointment Date/Time Appointment Type Appointme nt Facility Name Jul 08, 2024 01:00 PM AMBULATORY - MEDICINE [facility] August 01, 2024 09:00 AM AMBULATORY - REHAB MEDICIN E [facility] Sep 01, 2024 10:30 AM AMBULATORY - MEDICINE [facility] Sep 23, 2024 10:00 AM AMBULATORY - MEDICINE [facility] Sep 30, 2024 01:00 PM AMBULATORY - NONE [facility] Dec 03, 2024 10:00 AM AMBULATORY - MEDICINE [facility] Jan 01, 2025 11:00 AM AMBULATORY MEDICINE [facility] Active, Pending, and Scheduled Orders This section includes a listing of several types of active, pending, and scheduled orders, including clinic medications orders, diagnostic test orders, procedure orders and consult orders; where the start date of the order is 45 days before the date of the Encounter or 45 days after the date of theEncounter. The data comes from all [place] treatment facilities. Test Date/Time Test Type Test Details Facility Name Jul 08, 2024 12:00 AM Imaging - General Radiology Order HAND,LEFT,3 OR MORE VIEWS LEFT [facility] Jul 08, 2024 12:00 AM Imaging - General Radiology Order HAND,RIGHT,3 OR MORE VIEWS RIGHT [facility] Jul 10, 2024 09:17 AM Consult Order OT OUTPATI ENT CONSULT STL Cons [facility] Jul 10, 2024 09:17 AM Procedure Order CP EMG PRO CEDURE CP EMG PROCEDURE ANNETTE Proc [facility] Lab Results: +/- 30 days of the encounter This section includes the Chemistry and Hematology Lab Results on record with [place] for the patient. Radiology Reports and Pathology Reports are provided separately, in subsequent sections. Lab Results This section contains the Chemistry/Hematology Results that were resulted 30 days before or 30 daysafter the date of the Encounter. Date/Time Source Result Type Result - Unit Interpretation Reference Range Specimen Type Comment Jul 08, 2024 04:54 PM [facility] HGA1C BLOOD Specimen Type: BLOOD No comment entered. Ordering Provider: MARIA DEL ROSARIO ESTES Report Released Date/Time: Jul 08, 2024 11:48 AM Reporting Lab: [facility] [address] [facility] [address] Performing Lab: [facility] [address] [facility] [id number] HGA1C 6.8 H 4.0-6.0 Jul 08, 2024 04:54 PM [facility] BASIC METABOLIC PANEL PLASMA Specimen Type: PL ASMA Comment: No hemolysis noted. Ordering Provider: MARIA DEL ROSARIO ESTES Report Released Date/Time: Jul 08, 2024 11:48 AM Reporting Lab: [facility] [address] [facility] [id number] Performing Lab: [facility] [address] [facility] [address] CREATININE 1.18 mg/dL 0.7-1.3 UREA NITROGEN 21.4 mg/dL 9.0-25.0 GLUCOSE 123 mg/dL H 72-99 SODIUM 141 meq/L 136-145 POTASSIUM 4.2 meq/L 3.5-5 CHLORIDE 112 meq/L H 98-107 CARBON DIOXIDE 23 meq/L 22-31 CALCIUM 9.9 mg/dL 8.4-10.4 EGFR (CKD-EPI 2020) 65.2 >60 Jul 08, 2024 11:23 AM [facility] GLUCOSE,BLOOD-poct (STL) BLOOD Specimen Type: BLOOD Comment: Test Performed by: [id number] Meter #: [id number] Ordering Provider: MARIA DEL ROSARIO ESTES Report Released Date/Time: Jul 08, 2024 03:31 PM Reporting Lab: [facility] [id number] [facility] [phone] Performing Lab: [address] [address] GLUCOSE,BLOOD-poct (STL) 116 mg/dL H 72-99 Vital Signs: All taken on the encounter date This section contains inpatient and outpatient Vital Signs collected on the date of the Encounter. Date/Time Temperature Pulse Blood Pressure Respiratory Rate SP02 Pain Height Weight Body Mass Index Source Jul 02, 2024 11:07 AM 409.2 57 [facility] Social History: Smoking Status (Most [...] Date/Time Current Smoking Status Comment Tabitha ity May 10, 2023 10:30 AM [place] FORMER USER [facility] Tobacco Use History This section includes a history of the smoking, or tobacco-related health factors, that were collected on or before the date of the Encounter. The data comes from the [place] facility where the Encounter took place. Date/Time Smoking Status/Tobacco Use Comment F acility May 10, 2023 10:30 AM [place] 15 YRS OR MORE [facility] Encounter Notes: All associated encounter notes This section contains the clinical notes associated to the Encounter. Date/Time Encounter Note(s) Provider Source Jul 02, 2024 10:49 AM NUTRITION DIETETIC S NOTE: LOCAL TITLE: NUTRITION FOLLOW UP STL STANDARD TITLE: NUTRITION DIETETICS NOTE DATE OF NOTE: JUL 02, 2024@10:49 ENTRY DATE: JUL 02, 2024@10:49:37 AUTHOR: SANDRO MG EXP COSIGNER: URGENCY: STATUS: COMPLETED Modality of care: F2F NUTRITION REASSESSMENT Diagnosis: morbid obesity Time spent with : 45 minutes Last appointment date: 12/11/23 Id by: name, CLIENT HISTORY Patient Medical History: Benign essential hypertension Hyperlipidemia Morbid obesity Gout Type 2 diabetes mellitus Anemia Folate deficiency Vitamin D Deficiency Diastolic dysfunction Chronic Kidney Disease Stage 3A Obstructive Sleep Apnea of Adult Obesity Diastolic dysfunction Social history: 73 YOM, FOOD AND NUTRITION RELATED HISTORY Interested in weight loss diet education. Verbalizes difficulty managing his health goals with 's desire to prepare more energy dense foods, dining out each week. Fluid/Beverage intake: water, occasional tea - has eliminated [employer] Food intake: B: boiled eggs -- but may skip altogether 12pm: sandwich D: cabbage boiled, beans, rice Snacks: pb crackers 24 hour recall: B: eggs, sausage, toast L: wasn't hungry D: turkey dumplings [employer] restaurant: rice, chicken, frog legs - Sundays OUTPATIENT MEDICATIONS Non-VA MULTIVITAMIN CAP/TAB BY MOUTH ONCE A DAY ACTIVE KNOWLEDGE BELIEFS AND ATTITUDES - went through the MOVE program several years ago - signed up for home telehealth program to help with wt loss management; was not able to follow through - per last appointment Recognizes weight loss takes time and won't occur overnight. - verbalizes several deaths in the family, more traveling that has hindered wt loss goals. 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 Has several family members who are Vets PHYSICAL ACTIVITY AND FUNCTION Nutrition related ADLs: cooking/shopping Vet. Food security not assessed today. Physical activity: has a gym membership, however, has not used yet. Wishes to get back into the pool soon. ANTHROPOMETRIC MEASUREMENTS Ht: 71 in [180.3 cm] (04/15/2024 13:16) Wt: 409.2 lb [185.61 kg] (07/02/2024 11:07) Weight History/Significant changes: -2.8 lbs in one month Patient Weight History - Last Four 1. 409.2 lbs. / 185.6 kg. on JUL 02, 2024@11:07:29 2. 412.0 lbs. / 186.9 kg. on JUN 02, 2024@09:41:38 3. 409.0 lbs. / 185.5 kg. on APR 15, 2024@13:16:24 4. 415.1 lbs. / 188.3 kg. on JAN 24, 2024@13:40 BMI: 57.2 Adj BW for obesity: 266 lbs/121 kg Goal: 200 lbs BIOCHEMICAL DATA/MEDICAL TESTS AND PROCEDURES HGA1C 5.7 % 05/24/2023 13:34 TRIGLYCERIDE 80 mg/dL 01/25/2024 CHOLESTEROL 207 H mg/dL 01/25/2024 HDL(New) 41 mg/dL 01/25/2024 CALCULATED LDL 150 mg/dL 01/25/2024 NUTRITION FOCUSED PHYSICAL FINDINGS Ample fat and muscle stores Good appetite and PO intake No concern for malnutrition NUTRITION PRESCRIPTION: Decreased energy diet; general healthful diet Estimated energy needs: 2420 kcal/kg (20 kcal/kg Adj BW for weight loss) NUTRITION DIAGNOSIS ACTIVE Obesity related to decreased energy needs and limited physical activity as evidenced by BMI more than normative standard for age/sex: 57.9, consumption of energy dense, nutrient poor food/beverages, and infrequent physical activity. [Category: behavior etiology] NUTRITION INTERVENTIONS --Nutrition counseling based on motivational interviewing strategy: Reestablishing rapport. Asked open ended questions to promote change talk, explore motivation for change. Encouraged conversation with regarding his health goals. Continue to modify portions, choosing more vegetables and protein when dining out - avoid fried foods. --Education related to nutrition's influence on health: [employer], decreased energy diet. Applauded efforts to eliminate soda/juice - continue. Encouraged signing up for MOVE program. --Physical activity guidance Education material: verbal, Habits to Support a Healthy Weight Barriers to learning: focus Comprehension: fair, verbalized understanding NUTRITION MONITORING AND EVALUATION Measured weight: trending < 416 lbs at f/u -GOAL ACHIEVED, continue- (409 lbs) Nutrition self management as agreed upon: reduce/eliminate fried foods through f/u (GOAL SOMEWHAT ACHIEVED, continue) NEW: sign up for MOVE classesby f/u Type of physical activity: report trial of one exercise of choice at f/u (GOAL NOT ACHIVED, discussed today) Return to clinic: 5-6 months Dietitian contact information provided for any follow-up questions or needs. /buzz/ SANDRO MG Clinical Dietitian Signed: 07/07/2024 09:15 SANDRO MG [facility]
--- OUTSIDE RECORDS SUMMARY | 2024-07-27 07:33 | XMS_ITS | Encounter Summary ---
Author Name [facility] [place] [facility] [place] [facility] [place] Address [address] [place] [address] Care Team Providers Care Engine Lathe Tender Name Role Phone MARIA DEL ROSARIO ESTES [...] PART A Feb 01, 2016 PART A [id number] RODNEY MIX PATIENT MEDICARE (WNR) MEDICARE (M) PART A Feb 01, 2016 PART A [id number] RODNEY MIX PATIENT MEDICARE (WNR) MEDICARE (M) PART B Feb 01, 2016 PART B [id number] RODNEY MIX PATIENT MEDICARE (WNR) MEDICARE (M) PART B Feb 01, 2016 PART B [id number] RODNEY MIX PATIENT [facility] (WNR) MEDICARE ADVANTAGE [facility](W NR) Jan 01, 2024 [id number] MARIA DEL ROSARIORODNEY AMADA PATIENT Selected Encounter This section includes the information on record at [place] for the Encounter. Date/Time Encounter Type Encounter Description Reason Provider Source Jul 08, 2024 01:00 PM OFFICE O/P EST LOW 20 MIN PRIMARY CARE/MEDICINE ICD-10-CM I10 Essential (primary) hypertension RA ESTES OR L IHE Encounter Template Text not used by [facility] Assessments - Encounter Diagnoses This section includes the primary and secondary diagnoses documented for the Encounter. Date/Time Primary/Secondary Diagnosis Diagnosis Name Provider Source Jul 08, 2024 12:17 PM PRIMARY Essential (primary) hypertension NORMAN ESTES [facility] Jul 08, 2024 12:17 PM SECONDARY Ac emblsm and thombos unsp deep veins of left dist low extrm NORMAN ESTES [facility] Jul 08, 2024 12:17 PM SECONDARY Bilateral primary osteoarthritis of knee NORMAN ESTES [facility] Jul 08, 2024 12:17 PM SECONDARY Chronic kidney disease, stage 3a NORMAN EST[facility] Jul 08, 2024 12:17 PM SECONDARY Dermatitis, unspecified NORMAN ESTES [facility] Jul 08, 2024 12:17 PM SECONDARY Encounter for immunization NILA DYER [facility] Jul 08, 2024 12:17 PM SECONDARY Folate deficiency anemia, unspecified NORMAN ESTES [facility] Jul 08, 2024 12:17 PM SECONDARY Gout, unspecified NORMAN ESTES [facility] Jul 08, 2024 12:17 PM SECONDARY Heart failure, unspecified NORMAN ESTES [facility] Jul 08, 2024 12:17 PM SECONDARY Hyperlipidemia, unspecified NORMAN ESTES [facility] Jul 08, 2024 12:17 PM SECONDARY Male erectile dysfunction, unspecified NORMAN ESTES [facility] Jul 08, 2024 12:17 PM SECONDARY Morbid (severe) obesity due to excess calories NORMAN ESTES [facility] Jul 08, 2024 12:17 PM SECONDARY Obstructive sleep apnea (adult) (pediatric) NORMAN ESTES [facility] Jul 08, 2024 12:17 PM SECONDARY Pain in left finger(s) NORMAN ESTES [facility] Jul 08, 2024 12:17 PM SECONDARY Pain in right finger(s) NORMAN ESTES [facility] Jul 08, 2024 12:17 PM SECONDARY Pain in right wrist NORMAN ESTES [facility] Jul 08, 2024 12:17 PM SECONDARY Type 2 diabetes mellitus w diabetic chronic kidney disease NORMAN ESTES [facility] Jul 08, 2024 12:17 PM SECONDARY Vitamin D deficiency, unspecified NORMAN ESTES [facility] Plan of Treatment: Future Appointments (+ 6 months) and Future Tests (+/- 45 days) The Plan of Treatment section includes future care activities for the patient from all [place] [facility] This section includes future appointments and future orders which are active, pending or scheduled. Future Appointments This section includes appointments that were scheduled to occur 6 months from the date of the Encounter, up to a maximum of 20 appointments. The data comes from all [facility] facilities. Appointment Date/Time Appointment Type Appointme nt Facility Name August 01, 2024 09:00 AM AMBULATORY - REHAB MEDICIN E [facility] Sep 01, 2024 10:30 AM AMBULATORY - MEDICINE [facility] Sep 23, 2024 10:00 AM AMBULATORY - MEDICINE [facility] Sep 30, 2024 01:00 PM AMBULATORY - NONE [facility] Dec 03, 2024 10:00 AM AMBULATORY - MEDICINE [facility] Jan 01, 2025 11:00 AM AMBULATORY - MEDICINE [facility] Active, Pending, and Scheduled Orders This section includes a listing of several types of active, pending, and scheduled orders, including clinic medications orders, diagnostic test orders, procedure orders and consult orders; where the start date of the order is 45 days before the date of the Encounter or 45 days after the date of theEncounter. The data comes from all [facility]. Test Date/Time Test Type Test Details Facility Name Jul 08, 2024 12:00 AM Imaging - General Radiology Order HAND,LEFT,[address] [facility] Jul 08, 2024 12:00 AM Imaging - General Radiology Order HAND,RIGHT,3 OR MORE VIEWS RIGHT [facility] Jul 10, 2024 09:17 AM Consult Order OT OUTPATI ENT CONSULT STL Cons Chief Embalmer's Choice [facility] Jul 10, 2024 09:17 AM Procedure Order CP EMG PRO CEDURE CP EMG PROCEDURE ANNETTE Proc Chief Embalmer's Choice [facility] Lab Results: +/- 30 days of the encounter This section includes the Chemistry and Hematology Lab Results on record with [place] for the patient. Radiology Reports and Pathology Reports are provided separately, in subsequent sections. Lab Results This section contains the Chemistry/Hematology Results that were resulted 30 days before or 30 daysafter the date of the Encounter. Date/Time Source Result Type Result - Unit Interpretation Reference Range Specimen Type Comment Jul 08, 2024 04:54 PM [facility] HGA1C BLOOD Specimen Type: BLOOD No comment entered. Ordering Provider: MARIA DEL ROSARIO ESTES Report Released Date/Time: Jul 08, 2024 11:48 AM Reporting Lab: [facility] [address] [place] [id number] Performing Lab: [address] [address] HGA1C 6.8 H 4.0-6.0 Jul 08, 2024 04:54 PM [facility] BASIC METABOLIC PANEL PLASMA Specimen Type: PL ASMA Comment: No hemolysis noted. Ordering Provider: MARIA DEL ROSARIO ESTES Report Released Date/Time: Jul 08, 2024 11:48 AM Reporting Lab: [address] [id number] Performing Lab: [address] [address] CREATININE 1.18 mg/dL 0.7-1.3 UREA NITROGEN 21.4 mg/dL 9.0-25.0 GLUCOSE 123 mg/dL H 72-99 SODIUM 141 meq/L 136-145 POTASSIUM 4.2 meq/L 3.5-5 CHLORIDE 112 meq/L H 98-107 CARBON DIOXIDE 23 meq/L 22-31 CALCIUM 9.9 mg/dL 8.4-10.4 EGFR (CKD-EPI 2020) 65.2 >60 Jul 08, 2024 11:23 AM [facility] GLUCOSE,BLOOD-poct (STL) BLOOD Specimen Type: BLOOD Comment: Test Performed by: [id number] Meter #: [id number] Ordering Provider: MARIA DEL ROSARIO ESTES Report Released Date/Time: Jul 08, 2024 03:31 PM Reporting Lab: [facility] [address] [facility] [place] [address] Performing Lab: [facility] [address] [facility] [place] [address] GLUCOSE,BLOOD-poct (STL) 116 mg/dL H 72-99 Vital Signs: All taken on the encounter date This section contains inpatient and outpatient Vital Signs collected on the date of the Encounter. Date/Time Temperature Pulse Blood Pressure Respiratory Rate SP02 Pain Height Weight Body Mass Index Source Jul 08, 2024 11:13 AM 97.5 78 104/59 20 95 6 410.9 57 [facility] Immunizations: All administered on the encounter date This section contains immunizations associated to the Encounter. Immunization Series Date Issued Administered By Site Reaction Lot Number CVX Code Drug Tripe Scraper Comment(s) Source PNEUMOCOCCAL POLYSACCHARID E PPV23 Jul 08, 2024 NILA DYER LEFT DELTO ID [id number] 33 [employer] Completed Series, ADMINISTERE D AT [facility] Social History: Smoking Status (Most current) and Tobacco Use (All prior to encounter date) This section includes the most current, and the historical, smoking and tobacco- related health factors from the [place] facility where the Encounter took place. Current Smoking Status This section includes the most current smoking, or tobacco-related health factor, from the [place] facility where the Encounter took place. Date/Time Current Smoking Status Comment Tabitha ity May 10, 2023 10:30 AM [place]-TOBACCO QUIT 15 YRS OR MORE [facility] Tobacco Use History This section includes a history of the smoking, or tobacco-related health factors, that were collected on or before the date of the Encounter. The data comes from the [place] facility where the Encounter took place. Date/Time Smoking Status/Tobacco Use Comment F acility May 10, 2023 10:30 [facility] [address] [facility] Encounter Notes: All associated encounter notes This section contains the clinical notes associated to the Encounter. Date/Time Encounter Note(s) Provider Source Jul 10, 2024 09:15 AM PHYSICIAN LETTERS: LOCAL TITLE: TEST RESULT GENERAL LETTER ST[facility] STANDARD TITLE: PHYSICIAN LETTERS DATE OF NOTE: JUL 10, 2024@09:15 ENTRY DATE: JUL 10, 2024@09:15:27 AUTHOR: MARIA DEL ROSARIO ESTES EXP COSIGNER: URGENCY: STATUS: COMPLETED [facility] [address] [place] [address] JUL 10, 2024 EDWIN MIX [address] [place], [place] [address] Dear Edwin Mix, I would like to update you on your recent test results. HEMOGLOBIN A1C - Gives us information about your diabetes (sugar or glucose) control over the past 3 months. Your target is to keep your A1C below 7.0%. HGA1C 6.8 H % 07/08/2024 16:54 These readings are within normal limits. Your A1C is at an optimal level. Please continue to take your medications as prescribed. In addition to your medication, you can lower your A1C by increasing physical activity, limiting carbohydrates, choosing more vegetables, fruits, and whole grains. Do not deep-rodriguez your food, choose lean cuts of meat, and lower fat versions of milk. CHEM 7 - This is important information about the current status of your kidneys, liver, and electrolyte and acid/base balance as well as of your blood sugar and blood proteins. SODIUM 141 mEq/L 07/08/2024 16:54 POTASSIUM 4.2 mEq/L 07/08/2024 16:54 CHLORIDE 112 H mEq/L 07/08/2024 16:54 UREA NITROGEN 21.4 mg/dL 07/08/2024 16:54 CREATININE 1.18 mg/dL 07/08/2024 16:54 CALCIUM 9.9 mg/dL 07/08/2024 16:54 CARBON DIOXIDE 23 mEq/L 07/08/2024 16:54 GLUCOSE 123 H mg/dL 07/08/2024 16:54 EGFR (CKD-EPI 2020) 65.2 07/08/2024 16:54 The results are similar to previous values and not a clinical concern. PLAN Please continue your treatment as we discussed during your visit. If you have any questions please call your case making machine operator. I look forward to seeing you at your next clinic appointment. Thank you for choosing the [facility] for your healthcare. -------- FUTURE APPOINTMENTS: 09/01/2024 10:30 ANNETTE-ENDOCRINOLOGY BRINE TANK TENDER 4 09/30/2024 13:00 ANNETTE-NOCO PACT NUTR IND 12/03/2024 10:00 ANNETTE-ENDOCRINOLOGY DIABETES 01/01/2025 11:00 ANNETTE-NOCO PACT 7 PCP 02/12/2025 13:00 ANNETTE-OPTOMETRY 5 Sincerely, MARIA DEL ROSARIO ESTES, MSN, AGNP-C NURSE PRACTITIONER EDWIN MIX TAYLOR L [facility] Jul 08, 2024 11:31 AM PRIMARY CARE NOTE: LOCAL TITLE: PRIMARY CARE PROVIDER ESTABLISHED VISIT [facility] STANDARD TITLE: PRIMARY CARE NOTE DATE OF NOTE: JUL 08, 2024@11:31 ENTRY DATE: JUL 08, 2024@11:31:21 AUTHOR: MARIA DEL ROSARIO ESTES EXP COSIGNER: URGENCY: STATUS: COMPLETED ESTABLISHED PATIENT CHSO-BD-SUNM REASON FOR VISIT/CHIEF COMPLAINT: follow up hand and wrist pain HPI: PMH, see problem list 74 y/o male who presents to the medical clinic for his scheduled follow up visit. The purpose of the visit today is to follow up on the veterans chronic medical conditions. Last PCP visit: 04/03/2024 HLD. Unable to tolerate simvastatin, rosuvastatin, or combined with colchicine due to myalgias. Tolerating low dose atorvastatin at this time. NIDDM. He stopped taking metformin due to weakness. Ozempic stopped due to constipation. Home BG readings: FBG [address] 109 and PPBG 119-126.. Management per Endo. HTN. Home readings: spouse checks BP, vet cannot recall readings. Denies: SOB, CP, BECKER, Blurred vision, peripheral edema Chronic bilateral knee pain. Axtell has trialed CSIs in the past without significant improvement in pain. Received one stem cell injection on the left knee 2018 w/ good response. He has been taking APAP OTC for pain control. Obesity. Does not qualify for tripeptide until he meets to pre-requisite requirements for weight management consult including MOVE program or f/u with Pact RD. Vet has completed 2/3 appts. Complaints of pain in the right wrist. Pain limits his ability to hold a jug of water or items in his hand. Pain is described as numbness and tingling along the radial aspect of his right wrist/numbness in thumb and index fingers. Complaints of trigger finger to bilateral third digits. Given injections in both fingers by Rheumatology on 06/02/2024 without improvement. Needs imaging for ortho consults. WHAT IS YOUR GOAL FOR TODAY? F/U chronic medical conditions SOURCE(S) OF HISTORY: -Patient PAST MEDICAL HISTORY: 1) Benign essential hypertension 2) Hyperlipidemia 3) Morbid obesity 4) Gout 5) Erectile dysfunction (SNOMED CT 573570129) 6) Type 2 diabetes mellitus 7) Anticoagulant control 8) Thrombosis of the popliteal vein 9) Anemia 10) Folate deficiency 11) Knee pain 12) Stasis dermatitis 13) History of calculus of kidney 14) History of recurrent deep vein thrombosis 15) Osteoarthritis of knee 16) Foot pain 17) Numbness 18) Pyuria 19) Vitamin D Deficiency ([facility] [id number]) 20) Diastolic dysfunction 21) Chronic Kidney Disease Stage 3A ([facility] [id number]) 22) Obstructive Sleep Apnea of Adult ([facility] [id number]) 23) Eczema ([facility] [id number]) 24) Obesity 25) Diastolic dysfunction 26) Exposure to potentially hazardous substance 27) Diastolic dysfunction FAMILY HISTORY: DM: Brother CAD/IHD: father (HTN); Mother (HTN/[place]-) CA: father, PGF, paternal uncles & Paternal Aunts all had lung ca; maternal Aunts (x2), breast ca SOCIAL HISTORY: Tobacco use: former user, quit while AD, smoked ~ 7 yrs. ETOH use: denies Illicit drug use: denies -Lives: with -Grocery: -Meals: -ADL's: independent; assist with dressing or bathing -Transportation: private vehicle -Medications: independent -finances: independent Allergy: MERCURY,AMMONIATED, SILDENAFIL, ALLOPURINOL, GABAPENTIN, ROSUVASTATIN EZETIMIBE Allergy list reviewed and remains current. MEDICATIONS: Active Outpatient Medications (including Supplies): Active Outpatient Medications Status 1) ACCU-CHEK GUIDE (GLUCOSE) TEST STRIP USE 1 STRIP FOR BLOOD ACTIVE TEST DIRECTED *ORAL THERAPY* May PATIENT REQUIRES ADDITIONAL STRIPS DUE TO: HYPERGLYCEMIA SCHEDULE: ONCE DAILY 2) ALCOHOL PREP PAD USE/APPLY PAD TO AFFECTED AREA(S) ONCE A ACTIVE DAY NEEDED Indication: FOR WOUND CARE 3) AMLODIPINE BESYLATE 10MG TAB TAKE ONE TABLET BY MOUTH ONCE A ACTIVE (S) DAY FOR HEART/BLOOD PRESSURE 4) ATORVASTATIN CALCIUM 20MG TAB TAKE ONE-HALF TABLET BY MOUTH ACTIVE EVERY EVENING Indication: FOR HIGH CHOLESTEROL 5) CARBOXYMETHYLCELLULOSE NA 0.5% OPH SOLN INSTILL 1 DROP IN ACTIVE BOTH EYES FOUR TIMES A DAY NEEDED Indication: FOR DRY EYE(S) 6) CHOLECALCIF 50MCG (D3-2,000UNIT) TAB TAKE ONE TABLET BY ACTIVE MOUTH ONCE A DAY Indication: FOR VITAMIN D DEFICIENCY 7) COLCHICINE 0.6MG TAB TAKE ONE TABLET BY MOUTH ONCE A DAY ACTIVE (STOP MED AND CONTACT PROVIDER AT FIRST SIGN OF NAUSEA, VOMITING OR DIARRHEA) Indication: FOR GOUT 8) ENALAPRIL MALEATE 20MG TAB TAKE TWO TABLETS BY MOUTH ONCE A ACTIVE DAY FOR HEART OR TO LOWER BLOOD PRESSURE Indication: FOR HIGH BLOOD PRESSURE 9) FEBUXOSTAT 80MG TAB TAKE ONE TABLET BY MOUTH ONCE A DAY FOR ACTIVE GOUT 10) LIDOCAINE 5% PATCH APPLY 1 PATCH TO SKIN SITE ONCE A DAY ACTIVE APPLY PATCH AND PRESS FIRMLY FOR 10-15 SECONDS. KEEP ON FOR 12 HOURS THEN REMOVE PATCH FOR 12 HOURS. Indication: FOR LOCAL ANESTHESIA 11) TADALAFIL 20MG TAB TAKE ONE TABLET BY MOUTH EVERY WEEK ACTIVE NEEDED (TAKE 30 MINUTES PRIOR TO SEXUAL ACTIVITY) - LIMIT 18 DOSES PER 90 DAYS Indication: FOR ERECTILE DYSFUNCTION Active Non-VA Medications Status 1) Non-VA ACETAMINOPHEN 500MG TAB 500MG BY MOUTH FOUR TIMES A ACTIVE DAY NEEDED 2) Non-VA MULTIVITAMIN CAP/TAB BY MOUTH ONCE A DAY ACTIVE 13 Total Medications MEDICATION RECONCILIATION: completed REVIEW OF SYSTEMS: See HPI for further details of positive complaints. All 10 systems reviewed and otherwise negative. PHYSICAL EXAMINATION: VITALS (most recent, as listed in the electronic record): Temperature: 97.5 F [36.4 C] (07/08/2024 11:13) BP: 104/59 (07/08/2024 11:13) Pulse: 78 (07/08/2024 11:13) Resp: 20 (07/08/2024 11:13) PulsOx: 95% (07/08/2024 11:13) Pain: 6 (07/08/2024 11:13) Weight: Measurement DT WEIGHT LB(KG)[BMI] 07/08/2024 11:13 410.9(186.38)[57*] 07/02/2024 11:07 409.2(185.61)[57*] 06/02/2024 09:41 412(186.88)[58*] PHYSICAL EXAMINATION: General appearance: well-groomed, well-nourished, in no distress HEENT: sclera/conjunctiva clear, TMs pearly wahl, nares patent no secretions or inflammation, oropharynx WNL Neck: supple, no lymphadenopathy or thyromegaly Cardiovascular: RRR, no murmur, no gallop Respiratory: CTA, no wheezes, crackles or rhonchi ABD/GI: Obese contour, bs + in all quads, non-tender M/S: Normal gait and posture Extremities: radial/PT pulses 2+, warm, well-perfused Psych: normal affect Neuro: Alert and oriented x 3 Skin: warm, dry, normal color and texture, skin intact DATA REVIEW: HGA1C 5.7 % 05/24/2023 13:34 HGA1C 6.0 % 11/09/2022 17:28 HGA1C 6.6 H % 05/05/2022 11:40 Lipid Panel: TRIGLYCERIDE 80 mg/dL 01/25/2024 CHOLESTEROL 207 H mg/dL 01/25/2024 HDL(New) 41 mg/dL 01/25/2024 CALCULATED LDL 150 mg/dL 01/25/2024 CMP: SODIUM 143 mEq/L 01/25/2024 POTASSIUM 3.8 mEq/L 01/25/2024 CHLORIDE 112 H mEq/L 01/25/2024 UREA NITROGEN 22.1 mg/dL 01/25/2024 CREATININE 1.49 H mg/dL 01/25/2024 CALCIUM 9.9 mg/dL 01/25/2024 PROTEIN 7.5 g/dL 01/25/2024 ALBUMIN 4.0 g/dL 01/25/2024 ALKALINE PHOSPHATASE 76 U/L 01/25/2024 ALT/SGPT 9 U/L 01/25/2024 AST/SGOT 15 U/L 01/25/2024 TOTAL BILIRUBIN 0.5 mg/dL 01/25/2024 CARBON DIOXIDE 22 mEq/L 01/25/2024 GLUCOSE 125 H mg/dL 01/25/2024 EGFR (CKD-EPI 2020) 49.6 01/25/2024 CBC: WBC 6.1 10*3/uL 01/25/2024 00:00 RBC 4.27 10*6/uL 01/25/2024 00:00 HGB 13.0 L g/dL 01/25/2024 00:00 HCT 39.4 % 01/25/2024 00:00 MCV 92.3 fL 01/25/2024 00:00 MCH 30.4 pg 01/25/2024 00:00 MCHC 33.0 g/dL 01/25/2024 00:00 RDW 12.8 % 01/25/2024 00:00 PLT 275 10*3/uL 01/25/2024 00:00 MPV 10.6 fL 01/25/2024 00:00 NEUTROPHILS, AUTO % 52 % 01/25/2024 00:00 LYMPHOCYTES, AUTO % 34 % 01/25/2024 00:00 MONOCYTES, AUTO % 10 % 01/25/2024 00:00 EOSINOPHILS, AUTO % 3 % 01/25/2024 00:00 BASOPHILS, AUTO % 1 % 01/25/2024 00:00 NEUTROPHILS, ABSOLUTE 3.21 10*3/uL 01/25/2024 00:00 LYMPHOCYTES, ABSOLUTE 2.07 10*3/uL 01/25/2024 00:00 MONOCYTES, ABSOLUTE 0.62 10*3/uL 01/25/2024 00:00 EOSINOPHILS, ABSOLUTE 0.19 10*3/uL 01/25/2024 00:00 BASOPHILS, ABSOLUTE 0.04 10*3/uL 01/25/2024 00:00 PSA: PROST. SPECIFIC AG.(PB-STL) 1.273 ng/mL 09/05/2022 13:17 Vitamin D: VITAMIN D, 25-HYDROXY 20.9 L ng/mL 01/25/2024 00:00 VITAMIN D, 25-HYDROXY 31.4 ng/mL 01/24/2023 12:43 VITAMIN D, 25-HYDROXY 23.2 L ng/mL 09/05/2022 13:17 UA: URINE COLOR Yellow 01/25/2024 00:00 APPEARANCE Clear 01/25/2024 00:00 U.PH 6.0 01/25/2024 00:00 U.BILIRUBIN Negative mg/dL 01/25/2024 00:00 U.NITRITE Negative mg/dL 01/25/2024 00:00 URINE RBC/HPF 3 /HPF 01/25/2024 00:00 URINE WBC/HPF 16 H /HPF 01/25/2024 00:00 BACTERIA RARE /HPF 01/25/2024 00:00 MUCUS RARE /LPF 01/25/2024 00:00 HYALINE CASTS 18 /LPF 01/25/2024 00:00 Micral: CREATuF: 294.7 (01/25/24 00:00) M/CREAT: 30 (01/25/24 00:00) MICRAL: 87.3 (01/25/24 00:00) ASSESSMENT/PLAN: # HTN: - Blood pressure stable. Continue amlodipine 10 mg/day and enalapril 40 mg/day - Trend renal function. Continue lifestyle modifications # HLD: - Continue atorvastatin 10mg. Repeat lipid panel. Continue lifestyle modifications # Vit D Def: - Continue daily cholecalciferol supplement, repeat labs # Gout: - Managed by Rheumatology. Stable. Continue colchicine & febuxostat as directed # NIDDM: - Med management per Endo. A1C within treatment goal. - Continue empagliflozin 12.5mg. Continue lifestyle modifications. # ED: - Symptoms controlled on Cialis PRN. No change to medication dose today # Morbid Obesity: - Eval/management per Endo. Vet completed 2/3 visits with block feeder for med management. # Chronic bilateral knee osteoarthritis: - ongoing since 2015. denies injury or trauma - Continue diclofenac gel and APAP. Add lidocaine patch. Weight loss encouraged # DVT LLE: - Previously taking apixaban. Venous US 12/2022 no evidence of deep venous thrombosis in BLE. Axtell opted into monitoring off Tx per hematology recs. He is aware of S&S to monitor for. # Chronic DD noted per TTE 2019: - LV systolic function WNL. Not consistently using CPAP. BP stable. Continue lifestyle modifications. # JESSICA: - Severe sleep apnea per sleep study in 2017. Not using CPAP device. Declined to repeat sleep study for new CPAP device today - The patient has been advised that using CPAP regularly can decrease cardiac strain and help to control blood pressure. # Folic Acid deficiency: - Stopped multivitamin. Trend labs # CKD II: - Blood pressure controlled. Renally dose medications - Adequate hydration encouraged # Atopic dermatitis: - Stable/improved with triamcinolone and Eucerin - Skin hygiene handout provided. Adequate hydration advised. # Bilateral trigger finger: - No improvement with steroid inj. Bilateral x-rays ordered. Refer to ortho once imaging complete # Right wrist pain: - worsening numbness/tingling in right wrist. Order EMG. Agreed to OT consult in the interim. HM: Colorectal cancer screening: Last completed: ~2008, normal, due now. Vet opted to completed FOBT Prostate cancer screening: Last completed: 1.273 ng/mL 09/05/2022 13:17 Lung cancer screening: Eligibility: smokes less than 20 pack years AAA Screening: Eligibility: AAA UA completed 11/06/2022, no evidence of aneurysm ADMINISTERED Immunization Series Date Facility Reaction Info INFLUENZA, ADJUVANTED, QUADRIVAL* 05/05/2022 [facility]* INFLUENZA, ADJUVANTED, QUADRIVAL* 03/03/2021 [facility]* INFLUENZA, HIGH-DOSE, TRIVALENT,* C 04/15/2024 [facility]* INFLUENZA, SPLIT VIRUS, QUADRIVA* 03/06/2019 [facility]* INFLUENZA, SPLIT VIRUS, QUADRIVA* 01/29/2018 [facility]* INFLUENZA, SPLIT VIRUS, QUADRIVA* 01/29/2017 [facility]* INFLUENZA, SPLIT VIRUS, TRIVALEN* 12/15/2014 [facility]* INFLUENZA, UNSPECIFIED FORMULATI* [facility] INFLUENZA, UNSPECIFIED FORMULATI* 01/05/2009 [facility]* PNEUMOCOCCAL CONJUGATE PCV 13 04/20/2016 [facility]* PNEUMOCOCCAL POLYSACCHARIDE PPV23 04/05/2015 [facility]* TDAP 09/09/2018 [facility]* <C> TDAP 01/08/2009 [facility]* <C> ZOSTER LIVE 12/15/2014 [facility]* ZOSTER RECOMBINANT 2 01/29/2018 [facility]* ZOSTER RECOMBINANT 1 11/01/2017 [facility]* REFUSED ======= Immunization Date Facility Info COVID-19 (MODERNA), MRNA, LNP-S,* 09/05/2022 [facility]* <I> COVID-19 (MODERNA), MRNA, LNP-S,* 11/07/2023 [facility]* <C> COVID-19 (PFIZER), MRNA, LNP-S, * 07/04/2024 No Site <I> COVID-19 (PFIZER), MRNA, LNP-S, * 01/24/2024 [facility]* <I> PNEUMOCOCCAL POLYSACCHARIDE PPV23 11/07/2023 [facility]* <I> PNEUMOCOCCAL POLYSACCHARIDE PPV23 11/09/2022 [facility]* <I> PNEUMOCOCCAL POLYSACCHARIDE PPV23 09/05/2022 [facility]* <I> clinical reminders completed; educated on continuing to avoid salt, conc sweets; benefits of continued exercise, reg PCP visits, routine eyes exams Plan of care has been discussed with including expected therapeutic benefits and potential side effects of prescribed medications and treatments. Current medication list has been reconciled with and updated accordingly. Axtell was instructed to keep all scheduled appointments and to contact database administration manager for any additional problems. Axtell verbalizes understanding and is in agreement with the plan of care. RTC: 6m or sooner PRN PREVENTION & SCREENING: ALCOHOL: Clinical Reminder not due now or within a month BLOOD PRESSURE: Clinical Reminder not due now or within a month HEMOGLOBIN A1C: Clinical Reminder not due now or within a month RHS Screen - VS: RHS Screen Environmental Check Upon inquiry, the individual reports that the environment is safe to proceed. Informed Consent to Screen and Document The individual consents to proceed with screening. The individual consents to documentation of responses. PRIMARY SCREEN: In the past 12 months, how often did a current or former intimate partner (e.g., boyfriend, girlfriend, , , sexual partner): 1. Scream or curse at you Never 2. Insult or talk down to you Never 3. Threaten you with harm Never 4. Physically hurt you Never 5. Force or pressure you to have sexual contact against your will, or when you were unable to say no Never The HITS tool (items 1-4 above) is [place] copyright protected by Pranay Beth MD, and the user has full rights to use it throughout the [place] system. PRIMARY SCREEN RESULT: The Primary Screen is NEGATIVE. The individual answered never to all forms of IPV above (i.e., answered never to all 5 items) The individual accepts education and/or resources: No EDUCATION: The individual indicated readiness to learn. Education offered during this session as noted above. The individual indicated understanding by asking relevant questions and making appropriate comments. No barriers to learning were observed or identified. Pneumococcal PPSV23 (Pneumovax) - L,N,P,PH,U: See orders. /es/ MARIA DEL ROSARIO ESTES, MSN, AGNP-C NURSE PRACTITIONER Signed: 07/10/2024 09:15 MARIA DEL ROSARIO ESTES [facility] Jul 08, 2024 11:19 AM NURSING NOTE: LOCAL TITLE: 5 PACT FACE TO FACE NOTE STL STANDARD TITLE: NURSING NOTE DATE OF NOTE: JUL 08, 2024@11:19 ENTRY DATE: JUL 08, 2024@11:19:20 AUTHOR: NILA DYER EXP COSIGNER: URGENCY: STATUS: COMPLETED V15 PACT FACE TO FACE NOTE STL Has ADDENDA Provider Visit: Patient Identifiers : Full Name Date of Reason for visit: Established Follow-Up Mode of Arrival: Assistive Device: cane Allergy Review: MERCURY,AMMONIATED, SILDENAFIL, ALLOPURINOL, GABAPENTIN, ROSUVASTATIN EZETIMIBE Allergy list reviewed and remains current. Recent Vital Signs: Temperature: 97.5 F [36.4 C] (07/08/2024 11:13) Pulse: 78 (07/08/2024 11:13) Respiration: 20 (07/08/2024 11:13) B/P: 104/59 (07/08/2024 11:13) Pain: 6 (07/08/2024 11:13) Wt: 410.9 lb [186.38 kg] (07/08/2024 11:13) Ht: 71 in [180.3 cm] (04/15/2024 13:16) BMI: 57.4 POX: 95% (07/08/2024 11:13) Blood sugar glucometer readinmg/dl PERSONAL HEALTH INVENTORY Notes: No data available for PHI note titles PERSONAL HEALTH INVENTORY - MAP: 01/24/2024 Personal Health Plan [place] [place] (MAP) MY FAMILY 11/07/2023 Personal Health Plan [place] [place] (MAP) My health 03/15/2020 Personal Health Plan [place] (MAP) lives for: to take care of his and enjoy his grandkids; gets vito and happiness from fishing and being around grandkids; needs good health to do things he enjoys doing What matters most to you in your life right now? 's Response: life the kids and WHOLE HEALTH SHARED GOALS: PERSONAL HEALTH PLAN - SHARED GOALS: 01/24/2024 [facility] [place] Shared Goals TRYING TO LOSS WEIGHT 03/15/2020 [facility] [place] Shared Goals wants to get diabetic shoes SHARED GOALS work on hand bilateral and wrist right wrist Would you like to discuss any personal problem, family problem, alcohol use, drug use, or a mental or emotional illness? No My [facility] ([facility]), please select appointment type: Face to face: Yes-Do you have an upgraded (Premium) account which gives you the added benefit of Secure Messaging with your Primary Care Provider and refilling your prescriptions online? Yes- Done Contact provided Primary Care phone number and encouraged to call if any questions or concerns. Review that after hours nurse line [phone] and emergency room are available 23/10 for patient use. Contact verbalized good understanding. No notification required for this note. /buzz/ NILA DYER RN, MSN REGISTERED NURSE Signed: 07/08/2024 11:30 07/08/2024 ADDENDUM STATUS: COMPLETED Axtell Id full name and Pneumococcal PPSV23 (Pneumovax) - L,N,P,PH,U: Administered: PNEUMOCOCCAL POLYSACCHARIDE PPV23 Date Administered: Jul 08, 2024 12:03 Series: Complete Tripe Scraper: [employer] Lot: [id number] Exp Date: Apr 25, 2025 ND: [id number] Admin Route/Site: INTRAMUSCULAR/LEFT DELTOID Dosage: 0.5mL Vaccine Information Statement(s): PPSV23 VIS Jan 29, 2019 ([place]ESE) Order By: Maria Del Rosario Estes Administered By: Nila Dyer The Pneumococcal Vaccine Information Statement (VIS) was reviewed with the patient/caregiver which lists the benefits and risks of not receiving the Pneumococcal vaccine. The patient/caregiver denied any prior severe reaction to this vaccine or its components or a severe allergic reaction such as anaphylaxis to any vaccine or any injectable therapy. The patient/caregiver gave verbal consent to receive the vaccine. /es/ NILA DYER RN, MSN REGISTERED NURSE Signed: 07/08/2024 12:[address] [facility]
--- OUTSIDE RECORDS SUMMARY | 2024-07-27 07:33 | XMS_ITS | Encounter Summary ---
Author Name [facility] Address [address] [place] [address] Care Team Providers Care Insurance Solicitor Name Role Phone MARIA DEL ROSARIO ESTES [...] PART A Feb 01, 2016 PART A [id number] MARIA DEL ROSARIORODNEY JOSEEdwar PATIENT MEDICARE (WNR) MEDICARE (M) PART B Feb 01, 2016 PART B [id number] MARIA DEL ROSARIORODNEY [place] PATIENT MEDICARE (WNR) MEDICARE (M) PART A Feb 01, 2016 PART A [id number] MARIA DEL ROSARIORODNEY [place] PATIENT MEDICARE (WNR) MEDICARE (M) PART B Feb 01, 2016 PART B [id number] MARIA DEL ROSARIORODNEY [place] PATIENT [facility] (WNR) MEDICARE ADVANTAGE [facility](W NR) Jan 01, 2024 [id number] RODNEY MIX PATIENT Selected Encounter This section includes the information on record at [facility] for the Encounter. Date/Time Encounter Type Encounter Description Reason Pro vider Source IHE Encounter Template Text not used by [facility]
--- NOTE | 2024-07-27 07:51 | ED_ITS ---
HPI - General Adult General Chief complaint: Extremity Problem,Nontraumatic Stated complaint: Gout flare to left hand Time Seen by Provider: 07/27/24 06:55 History of Present Illness HPI narrative: 74-year-old male presents to the emergency department for evaluation for suspected gout flare of his left hand. Patient does have history of gout and states that is typically his feet that are affected. Patient states that he woke up yesterday morning and noticed swelling of his left hand. Patient denies any injury. Patient denies any significant history of cellulitis. Patient states he is diabetic but his blood sugars are well controlled. Patient denies any pain in the elbow or wrist. Patient does have some inflammation of the mid hand and localized erythema. Related Data Home Medications ?Medication ?Instructions ?Recorded ?Confirmed ?Last Taken ?Type apixaban 5 mg tablet 5 mg PO BID 04/26/22 01/25/23 Unknown History Allergies Allergy/AdvReac Type Severity Reaction Status Date / Time aspirin Allergy Other Verified 07/27/24 05:10 Review of Systems Review of Systems: All systems reviewed & are unremarkable except as noted in HPI and below PMFSH Past Medical History Medical History Kidney stones Gout JESSICA (obstructive sleep apnea) Morbid obesity Erectile dysfunction Gout Diabetes HTN (hypertension) Kidney stones Surgical History Surgical History H/O right knee surgery H/O knee surgery Family History Family History Father Cancer Lung cancer Mother Hypertension Alzheimer's dementia Sibling Diabetes mellitus Hypertension Daughter Breast cancer Hypertension Social History Social History Smoking status: Never smoker Second hand tobacco smoke exposure: No Alcohol intake: never Substance use: never Lack of Transportation: No Lack of Food: Never True Current Housing: I Have Housing Concerned About Future Housing: No Difficulty Paying Gas/Electric Bills: No Difficulty Paying for Meds: No Currently Unemployed: YES Education: Associate Degree Difficulty w/ Childcare or Family Care: No Exam Narrative: APPEARANCE: Well appearing, no pain, no distress, well-nourished. HEAD: normocephalic, atraumatic. EYES: PERRLA/EOMI, conjunctivae clear. NOSE: Normal no drainage EARS:TMS clear with good light reflex. THROAT: Pharynx clear, no exudate. NECK: Supple. No adenopathy, no masses. RESPIRATORY: Airway patent, respirations nonlabored. Clear to auscultation bilaterally, no rales, rhonchi, wheezing. CARDIOVASCULAR: Regular rate and rhythm without murmurs rubs or gallops. ABDOMINAL: Soft, nontender, nondistended, normal bowel sounds MUSCULOSKELETAL: Left hand erythema without evidence of cellulitis, NEURO: Alert. Cranial nerves II through XII intact. Grossly intact SKIN: Warm, dry. Normal Color Course Vital Signs Vital signs: Vital Signs Temperature 98.0 F 07/27/24 05:06 Pulse Rate 89 07/27/24 05:06 Respiratory Rate 20 07/27/24 05:06 Blood Pressure 100/62 07/27/24 05:06 Pulse Oximetry 95 07/27/24 05:06 Oxygen Delivery Room Air 07/27/24 05:06 Temperature 98.0 F 07/27/24 05:06 Pulse Rate 88 07/27/24 09:40 Respiratory Rate 16 07/27/24 09:40 Blood Pressure 152/86 H 07/27/24 09:40 Pulse Oximetry 99 07/27/24 09:40 Oxygen Delivery Room Air 07/27/24 05:06 Medical Decision Making [facility] Narrative Medical decision making narrative: 74-year-old male presents emergency department for evaluation for left hand swelling. No evidence cellulitis and x-rays were negative for acute fracture dislocation. Patient did feel improved with his doses of colchicine and pain medications emergency department. Patient was discharged home with additional medications for pain control. Patient will have close follow-up with his primary care physician. Patient was educated on reasons to return to the emergency department. Differential Diagnosis Differential Diagnosis: Gout, fracture, cellulitis, diabetic ulcer Vital Signs Vital Signs: Vital Signs Temperature 98.0 F 07/27/24 05:06 Pulse Rate 89 07/27/24 05:06 Respiratory Rate 20 07/27/24 05:06 Blood Pressure 100/62 07/27/24 05:06 Pulse Oximetry 95 07/27/24 05:06 Oxygen Delivery Room Air 07/27/24 05:06 Temperature 98.0 F 07/27/24 05:06 Pulse Rate 88 07/27/24 09:40 Respiratory Rate 16 07/27/24 09:40 Blood Pressure 152/86 H 07/27/24 09:40 Pulse Oximetry 99 07/27/24 09:40 Oxygen Delivery Room Air 07/27/24 05:06 Imaging Data Radiologist's impression: Impressions Hand X-Ray 07/27/24 08:01 IMPRESSION: 1. Prominent soft tissue swelling centered dorsal to the distal metacarpals of the left hand. No acute osseous abnormality. 2. 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 Discharge Plan Discharge Clinical Impression: Gout Patient Disposition: Home Condition: Stable Instructions: Antibiotic Form, Gout (ED) Additional Instructions: [place] as needed for additional pain control. Have close follow-up with your primary care physician. If you have any worsening symptoms and please call or return to the emergency department. Patient Language: [place] Prescriptions: New hydrocodone-acetaminophen 5-325 mg tablet 1 tablet PO Q12H PRN (Reason: pain) Qty: 14 0RF No Action rosuvastatin [Crestor] 10 mg tablet 10 mg PO QHS Qty: 30 4RF apixaban 5 mg tablet 5 mg PO BID ciprofloxacin HCl [Cipro] 500 mg tablet 500 mg PO Q12H Qty: 14 0RF cyclobenzaprine 10 mg tablet 10 mg PO TID PRN (Reason: muscle spasm) Qty: 20 0RF acetaminophen 325 mg tablet 650 mg PO Q6H 5 Days Qty: 40 0RF prednisone 50 mg tablet 50 mg PO DAILY 5 Days Qty: 5 0RF prednisone 50 mg tablet 50 mg PO DAILY Qty: 7 0RF febuxostat 80 mg tablet 80 mg PO DAILY Qty: 90 1RF Farxiga 10 mg tablet 10 mg PO DAILY Qty: 30 2RF clotrimazole-betamethasone 1-0.05 % cream See Rx Instructions .ROUTE .COMPLEX Qty: 45 0RF Dose Instruction: APPLY TOPICALLY TWICE A DAY Rx Instructions: APPLY TOPICALLY TWICE A DAY enalapril maleate 20 mg tablet 20 mg PO DAILY Qty: 90 1RF Ozempic 2 mg/dose (8 mg/3 mL) pen injector See Rx Instructions .ROUTE .COMPLEX Qty: 3 0RF Dose Instruction: INJECT 2MG UNDER THE SKIN ONCE WEEKLY Rx Instructions: INJECT 2MG UNDER THE SKIN ONCE WEEKLY colchicine 0.6 mg tablet 0.6 mg PO DAILY Qty: 90 1RF amlodipine 10 mg tablet 10 mg PO DAILY Qty: 15 0RF Follow-up/Referrals: PHYSICIAN,CRM MARKETING ANALYST [Primary Care Provider] -
[2024-07-27] MEDS: COLCHICINE 0.6 MG TABLET 1.2 MG PO (08:09)
[2024-07-27] MEDS: HYDROcodone/acetaminophen (*CRX) 7.5-325 MG TABLET 1 TAB PO (08:10)
[2024-07-27] MEDS: COLCHICINE 0.3 MG TABLET PO (09:20)
[2024-07-27 09:40] VITALS: BP 152/86; PULSE 88; RESP 16; O2SAT 99
== END 2024-07-27 09:42 | disposition home or self-care (01) ==
PROVIDERS: Emergency Provider Emergency Medicine
DX: M10.9 Gout, unspecified (principal); I10 Essential (primary) hypertension; E66.01 Morbid (severe) obesity due to excess calories; Z68.43 Body mass index [BMI] 50.0-59.9, adult; E11.9 Type 2 diabetes mellitus without complications; G47.33 Obstructive sleep apnea (adult) (pediatric); Z87.442 Personal history of urinary calculi; M19.042 Primary osteoarthritis, left hand; M11.232 Other chondrocalcinosis, left wrist; M11.242 Other chondrocalcinosis, left hand
CPT/HCPCS: 73130; 99283; A9270